=== PATIENT | male | born 1995 ===

== ENCOUNTER 2017-10-08 06:03 | Emergency (ER) | payer MEDICAID, OTHER ==
[2017-10-08 06:15] VITALS: BP 149/96; PULSE 118; RESP 18; TEMP 98.6; O2SAT 99
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
== END 2017-10-08 06:43 | disposition home or self-care (01) ==
LOC: ED 06:03
DX: S00.531A Contusion of lip, initial encounter (principal); Y08.89XA Assault by other specified means, initial encounter; Y92.9 Unspecified place or not applicable

== ENCOUNTER 2018-04-08 12:39 | Inpatient (IN) | payer MEDICAID, OTHER ==
--- NOTE | 2018-04-08 13:12 | ED PDOC ---
Arrival/HPI - General Time Seen by Provider: 04/08/18 12:46 Historian: Patient - History of Present Illness Narrative History of Present Illness (Text): 04/08/18 13:10 23yo morbidly obese male with no pmhx who present with complaint chest pain/SOB whenever he belch. States it started 4days ago. Report episode of nonbloody/ billious vomiting 3 and 4days ago. States he vomited 2hours after eating 4days ago and the second time it was related to any PO intake. Also reprot mild episastric discomfort. Reports polyuria/dipsia that has become worse. Admits to chills and feeling "hot" the last few days. Denies diaphoresis, LE edema, calf pain, ripping/tearing back pain, any other complaint. Past Medical History - Provider Review Nursing Documentation Reviewed: Yes - Infectious Disease Hx of Infectious Diseases: None - Psychiatric Hx Substance Use: No - Anesthesia Hx Anesthesia: No Family/Social History - Physician Review Nursing Documentation Reviewed: Yes Family/Social History: Unknown Family HX Smoking Status: Never Smoked Hx Alcohol Use: No Hx Substance Use: No Allergies/Home Meds Allergies/Adverse Reactions: Allergies No Known Allergies Allergy (Verified 04/08/18 16:15) Home Medications: Home Meds Medication Instructions Recorded Confirmed No Known Home Med 10/08/17 04/08/18 Review of Systems - Physician Review All systems were reviewed & negative as marked: Yes - Review of Systems Constitutional: Normal Eyes: Normal ENT: Normal Respiratory: SOB Cardiovascular: Chest Pain Gastrointestinal: Abdominal Pain, Nausea, Vomiting. absent: Constipation, Diarrhea, Hematochezia, Hematemesis Genitourinary Male: Normal Musculoskeletal: Normal Skin: Normal Neurological: Normal Endocrine: Polyuria, Polydipsia Hemo/Lymphatic: Normal Psychiatric: Normal Physical Exam Vital Signs Reviewed: Yes Vital Signs Temp Pulse Pulse Resp BP Pulse Ox 04/08/18 18:48 98.9 F 100 H 18 132/69 100 04/08/18 16:00 100 H 18 128/70 100 04/08/18 14:39 104 H 20 143/83 100 04/08/18 12:39 98.1 F 116 H 120 H 20 138/101 H 100 Temperature: Afebrile Blood Pressure: Hypertensive Pulse: Tachycardic Respiratory Rate: Normal Appearance: Positive for: Well-Appearing, Non-Toxic, Comfortable, Other ( morbidly obese) Pain Distress: None Mental Status: Positive for: Alert and Oriented X 3 - Systems Exam Head: Present: Atraumatic, Normocephalic Pupils: Present: PERRL Extroacular Muscles: Present: EOMI Conjunctiva: Present: Normal Mouth: Present: Moist Mucous Membranes Neck: Present: Normal Range of Motion Respiratory/Chest: Present: Clear to Auscultation, Good Air Exchange. No: Respiratory Distress, Accessory Muscle Use, Wheezes, Decreased Breath Sounds, Rales, Retracting, Rhonchi Cardiovascular: Present: Regular Rate and Rhythm, Normal S1, S2. No: Murmurs Abdomen: No: Tenderness, Distention, Peritoneal Signs Back: Present: Normal Inspection Upper Extremity: Present: Normal Inspection. No: Cyanosis, Edema Lower Extremity: Present: Normal Inspection. No: Edema Neurological: Present: GCS=15, CN II-XII Intact, Speech Normal Skin: Present: Warm, Dry, Normal Color. No: Rashes Psychiatric: Present: Alert, Oriented x 3, Normal Insight, Normal Concentration Medical Decision Making ED Course and Treatment: 04/08/18 16:47 23yo morbidly obese male in ED for chest and SOB x 3days. Labs ordered EKG Cardiac enzyme cardiac monitoring UA EKG Sinus tachy @ 119bpm CXR NAD 04/08/18 18:28 Lab was reviewed and BS of 302 was noted with AG of 27 and bicarb of 7. PT is is DKA. 1L NS ordered 5unit of regular insulin bolus ordered pt will need insulin drip and admission to ICU for new onset DM with DKA Case was DW Dr. Abdalla and he accepted pt for admission Dr. Abdalla DC with Dr. Carlton, the fibrous plasterer who saw pt by the bedside and accepted pt to ICU Result and plan was DW the pt and he agreed. - Critical Care Critical Care Minutes: 30 minutes - Lab Interpretations Lab Results: 04/08/18 13:35 04/08/18 13:35 Lab Results 04/08/18 15:15: Urine Osmolality 851, Ur Random Sodium 22, Ur Random Potassium 37.5 04/08/18 15:15: Urine Color Yellow, Urine Appearance Clear, Urine pH 6.0, Ur Specific [place] >= 1.030, Urine Protein 100 H, Urine Glucose (UA) >=1000, Urine Ketones >=80, Urine Blood Small H, Urine Nitrate Negative, Urine Bilirubin Negative, Urine Urobilinogen 0.2, Ur Leukocyte Esterase Negative, Urine RBC 1 - 3, Urine WBC 0 - 2, Ur Epithelial Cells 0 - 2, Urine Bacteria Small, Hyaline Casts 0 - 2 04/08/18 15:15: pCO2 13 L*, pO2 140.0 H, HCO3 5.2 L*, ABG pH 7.21 L, ABG Total CO2 5.6 L, ABG O2 Saturation 100.3 H, ABG Base Excess -20.0 L, ABG Potassium 2.7 L, Glucose 266 H, Lactate 1.2, FiO2 21.0, Sodium 135.0, Chloride 109.0 H, Arterial Blood Potassium 2.7 L 04/08/18 15:15: Urine Opiates Screen Negative, Urine Methadone Screen Negative, Ur Barbiturates Screen Negative, Ur Phencyclidine Scrn Negative, Ur Amphetamines Screen Negative, U Benzodiazepines Scrn Negative, U Oth Cocaine Metabols Negative, U Cannabinoids Screen Negative 04/08/18 14:52: POC Glucose (mg/dL) 251 H 04/08/18 13:35: PT 11.3, INR 0.99, APTT 30.6, D-Dimer, Quantitative < 200 04/08/18 13:35: Sodium 137, Potassium 3.7, Chloride 107, Carbon Dioxide 7 L, Anion Gap 27 H, BUN 6 L, Creatinine 0.7 L, Est GFR ( Amer) > 60, Est GFR (Non-Af Amer) > 60, Random Glucose 302 H*, Calcium 9.6, Magnesium 2.0, Total Bilirubin 1.1, AST 78 H, ALT 141 H, Alkaline Phosphatase 206 H, Lactate Dehydrogenase 524, Total Creatine Kinase 95, Troponin I < 0.01, Total Protein 8.0, Albumin 4.4, Globulin 3.6, Albumin/Globulin Ratio 1.2, Lipase 247 04/08/18 13:35: WBC 9.4, RBC 6.39 H, Hgb 17.5, Hct 48.6, MCV 76.1 L, MCH 27.4, MCHC 36.0, RDW 15.1 H, Plt Count 153, Gran % 67.8, Lymph % (Auto) 21.4 L, Wake % (Auto) 10.2 H, Eos % (Auto) 0.3 L, Baso % (Auto) 0.3, Gran # 6.34, Lymph # ( Auto) 2.0, Wake # (Auto) 1.0 H, Eos # (Auto) 0.0, Baso # (Auto) 0.03 - RAD Interpretation Radiology Orders: 04/08/18 12:55 CHEST PORTABLE [RAD] Stat 04/08/18 16:21 ABD & PELVIS W/O PO OR IV CONT [CT] Stat - Medication Orders Current Medication Orders: Dextrose (Dextrose 50% Inj) 0 ml IV STAT PRN; Protocol PRN Reason: Hypoglycemia Protocol Dextrose (Dextrose 5% In Water 1000 Ml) 1,000 mls @ 0 mls/hr IV .Q0M PRN; Protocol; Per Protocol PRN Reason: Hypoglycemia Protocol Potassium Chloride 40 meq/ (Dextrose/Sodium Chloride) 1,020 mls @ 200 mls/hr IV .Q5H6M LEONARDO Insulin Human Regular 100 (units/ Sodium Chloride) 100 mls @ 6 mls/hr IV .[id number] PRN; Protocol; 6 UNITS/HR PRN Reason: TITRATE PER MD ORDER Pantoprazole Sodium (Protonix Ec Tab) 40 mg PO 0600 LEONARDO Discontinued Medications Famotidine (Pepcid) 20 mg IVP STAT STA Stop: 04/08/18 12:56 Last Admin: 04/08/18 13:46 Dose: 20 mg IVP Administration Document 04/08/18 13:46 [facility] (Rec: 04/08/18 13:46 [facility] [id number]) Charges for Administration # of IVP Administrations 1 Sodium Chloride (Sodium Chloride 0.9%) 1,000 mls @ 999 mls/hr IV .Q1H1M STA Stop: 04/08/18 15:30 Last Admin: 04/08/18 14:45 Dose: 999 mls/hr eMAR Start Stop Document 04/08/18 14:45 [facility] (Rec: 04/08/18 14:46 [facility] [id number]) Intravenous Solution Start Date 04/08/18 Start Time 14:45 End Date 04/08/18 End time 15:45 Total Infusion Time 60 Sodium Chloride (Sodium Chloride 0.9%) 1,000 mls @ 999 mls/hr IV .Q1H1M STA Stop: 04/08/18 16:46 Last Admin: 04/08/18 15:58 Dose: 999 mls/hr eMAR Start Stop Document 04/08/18 15:58 [facility] (Rec: 04/08/18 15:58 [facility] [id number]) Intravenous Solution Start Date 04/08/18 Start Time 15:58 End Date 04/08/18 End time 16:58 Total Infusion Time 60 Lactated Ringer's (Lactated Ringer's) 1,000 mls @ 999 mls/hr IV .Q1H1M LEONARDO Stop: 04/08/18 17:30 Last Admin: 04/08/18 17:51 Dose: 999 mls/hr eMAR Start Stop Document 04/08/18 17:51 [facility] (Rec: 04/08/18 17:52 [facility] [id number]) Intravenous Solution Start Date 04/08/18 Start Time 17:52 End Date 04/08/18 End time 18:52 Total Infusion Time 60 Potassium Chloride 40 meq/ (Dextrose/Sodium Chloride) 1,020 mls @ 150 mls/hr IV .Q6H48M [facility] Last Admin: 04/08/18 17:52 Dose: 150 mls/hr eMAR Start Stop Document 04/08/18 17:52 [facility] (Rec: 04/08/18 17:52 [facility] [id number]) Intravenous Solution Start Date 04/08/18 Start Time 17:52 Insulin Human Regular 100 (units/ Sodium Chloride) 100 mls @ 13 mls/hr IV .Q7H42M PRN; Protocol; 13 UNITS/HR PRN Reason: TITRATE PER MD ORDER Last Admin: 04/08/18 18:18 Dose: 6 units/hr, 6 mls/hr eMAR Start Stop Document 04/08/18 18:18 [facility] (Rec: 04/08/18 18:19 [facility] [id number]) Intravenous Solution Start Date 04/08/18 Start Time 18:18 MAR Blood Glucose Document 04/08/18 18:18 [facility] (Rec: 04/08/18 18:19 [facility] [id number]) Blood Glucose Finger Stick Blood Glucose (70-120) 165 Titration Intervention Document 04/08/18 18:18 [facility] (Rec: 04/08/18 18:19 [facility] [id number]) Titration Intake Waste Amount 0 Container Volume 100 Titration Dosing Titration Dose 6 IV Rate 6 Intake/Decrease Started Insulin Human Regular 100 (units/ Sodium Chloride) 100 mls @ 2 mls/hr IV .Q24H PRN; Protocol; 2 UNITS/HR PRN Reason: TITRATE PER MD ORDER Insulin Human Regular (Humulin R) 5 units IVP ONCE STA Stop: 04/08/18 14:32 Last Admin: 04/08/18 14:47 Dose: 5 u MAR Blood Glucose Document 04/08/18 14:47 [facility] (Rec: 04/08/18 14:53 [facility] [id number]) Blood Glucose Finger Stick Blood Glucose (70-120) 251 IVP Administration Document 04/08/18 14:47 [facility] (Rec: 04/08/18 14:53 [facility] [id number]) Charges for Administration # of IVP Administrations 1 Potassium Chloride (Klor-Con 10) 40 meq PO STAT STA Stop: 04/08/18 17:00 Last Admin: 04/08/18 17:52 Dose: 40 meq Disposition/Present on Arrival - Present on Arrival Any Indicators Present on Arrival: No History of DVT/PE: No History of Uncontrolled Diabetes: No Urinary Catheter: No History Surgical Site Infection Following: None - Disposition Have Diagnosis and Disposition been Completed?: Yes Diagnosis: Diabetes mellitus, new onset, DKA (diabetic ketoacidoses) Disposition: HOSPITALIZED Disposition Time: 17:00 Patient Plan: Admission Patient Problems: Current Active Problems Problem Status Onset DKA (diabetic ketoacidoses) Acute Diabetes mellitus, new onset Acute Condition: FAIR
--- NOTE | 2018-04-08 13:25 | RAD ---
Date of service: 04/08/2018 HISTORY: chest pain COMPARISON: No prior. FINDINGS: LUNGS: No active pulmonary disease. PLEURA: No significant pleural effusion identified, no pneumothorax apparent. CARDIOVASCULAR: Normal. OSSEOUS STRUCTURES: No significant abnormalities. VISUALIZED UPPER ABDOMEN: Normal. OTHER FINDINGS: None. IMPRESSION: No active disease.
[2018-04-08 14:03] LABS: BASO # 0.03 K/mm3 (0.0-2.0); BASO % 0.3 % (0.0-3.0); EOS % 0.3 % (1.5-5.0); GRAN # 6.34 (1.4-6.5); GRAN % 67.8 % (50.0-68.0); HEMOGLOBIN 17.5 g/dL (14.0-18.0); LYMPH % 21.4 % (22.0-35.0); MEAN CELL VOLUME 76.1 fl (80.0-105.0); MEAN CORPUSCULAR HEMOGLOBIN 27.4 pg (25.0-35.0); MONO % 10.2 % (1.0-6.0); PLATELET COUNT 153 10^3/uL (120.0-450.0); RBC 6.39 10^6/uL (3.5-6.1); RED CELL DISTRIBUTION WIDTH 15.1 % (11.5-14.5); WHITE BLOOD COUNT 9.4 10^3/ul (4.5-11.0)
[2018-04-08 14:24] LABS: ALB/GLOB RATIO 1.2 (1.1-1.8); ALBUMIN 4.4 g/dL (3.0-4.8); ALT/SGPT 141 U/L (7-56); AST/SGOT 78 U/L (17-59); BLOOD UREA NITROGEN 6 mg/dL (7-21); CALCIUM 9.6 mg/dL (8.4-10.5); GFR NON-AFRICAN AMERICAN > 60; LIPASE 247 U/L (23-300)
[2018-04-08 14:26] LABS: TROPONIN I < 0.01 ng/mL
[2018-04-08 14:30] LABS: D DIMER < 200 ng/mlDDU (0-243); INR 0.99; PARTIAL THROMBOPLASTIN TIME 30.6 Seconds (25.1-36.5); PROTHROMBIN TIME 11.3 SECONDS (9.4-12.5)
[2018-04-08] MEDS ORDERED: Sodium Chloride 0.9% 1,000 ML IV STA ×2 (14:30→15:46)
[2018-04-08] MEDS ORDERED: Insulin Regular 1 UNITS/0.01 ML ML IVP STA (14:31)
[2018-04-08 15:24] LABS: ARTERIAL BLOOD GAS HCO3 5.2 mmol/L (21-28); ARTERIAL BLOOD GAS O2 SAT 100.3 % (95-98); ARTERIAL BLOOD GAS PCO2 13 mm/Hg (35-45); ARTERIAL BLOOD GAS PH 7.21 (7.35-7.45); ARTERIAL BLOOD GAS TCO2 5.6 mmol.L (22-28)
--- NOTE | 2018-04-08 16:26 | CP.PCM.HP ---
<Thom Gonzalez - Last Filed: 04/08/18 16:26> History of Present Illness - History of Present Illness History of Present Illness: Hospitalist Service H&P Thom Gonzalez, PGY-3 IM CC: Nausea/emesis, chest pain/short of breath with abd pain HPI: This is a 23 yo M with no PMH who presents with complaint of nausea, emesis x2, and chest pain/shortness of breath 2/2 abdominal pain. Presented due to persistence of symptoms up through today. He reports 1 episode of non- bloody/non-bilious (NBNB) emesis after eating fast-food on 5 nights ago, approximately 2 hours after intake, another episodes of NBNB emesis 3 days prior (not related to PO intake). Denies constipation or diarrhea during this period, no fevers/chills, no PO intolerance, no dysphagia, no syncope/near syncope, no room spinning. Reports minimal PO intake yesterday evening, but reports consistent PO intake of water and vignesh-bg since start of episode 5 days prior. Admits to frequent thirst and urination, but this is not a new phenomenon. Also reports feeling of being chronically cold for last 5 days, and intolerant to heat, which is new for him. Last EtOH use was 4 days prior, didn't have any effect on symptoms. [place] better after both episodes of emesis and after belching (reports increased belching the last 2 days). Reports using TUMS twice in last 2 days for symptom management with some relief. Chest pain and shortness of breath are only related to abdominal pain, which he describes as substernal discomfort associated with his abdominal pain (not currently present, in epigastric region when present), and well as mild shortness of breath with the abdominal pain (but denies ever gasping for air). All other ROS in 12-system review negative. PMH: denies PSH: denies Fam Hx: DM (Father, paternal grandparents, mother recently diagnosed) Soc Hx: Intermittent vaping (last 1 week ago), intermittent marijuana use (last used ~5 months ago) PMD: Doesn't have one Present on Admission - Present on Admission Any Indicators Present on Admission: No History of DVT/PE: No History of Uncontrolled Diabetes: Yes Urinary Catheter: No Review of Systems - Review of Systems All systems: reviewed and no additional remarkable complaints except (as per HPI ) Past Patient History - Infectious Disease Hx of Infectious Diseases: None - Past Social History Smoking Status: Never Smoked - CARDIAC Hx Cardiac Disorders: No - PULMONARY Hx Respiratory Disorders: No - NEUROLOGICAL Hx Neurological Disorder: No - HEENT Hx HEENT Problems: No - RENAL Hx Chronic Kidney Disease: No - ENDOCRINE/METABOLIC Hx Endocrine Disorders: No - HEMATOLOGICAL/ONCOLOGICAL Hx Blood Disorders: No - INTEGUMENTARY Hx Dermatological Problems: No - MUSCULOSKELETAL/RHEUMATOLOGICAL Hx Musculoskeletal Disorders: Yes Hx Arthritis: No Hx Fractures: Yes (left wrist) - GASTROINTESTINAL Hx Gastrointestinal Disorders: No - PSYCHIATRIC Hx Substance Use: No - SURGICAL HISTORY Hx Musculoskeletal Surgery: Yes (left wrist) - ANESTHESIA Hx Anesthesia: No Meds Allergies/Adverse Reactions: Allergies Allergy/AdvReac Type Severity Reaction Status Date / Time No Known Allergies Allergy Verified 04/08/18 16:15 Physical Exam - Constitutional Appears: Non-toxic, No Acute Distress Additional comments: resting comfortably in bed - Head Exam Head Exam: ATRAUMATIC, NORMAL INSPECTION, NORMOCEPHALIC - Eye Exam Eye Exam: EOMI, Normal appearance. absent: Conjunctival injection, Scleral icterus Pupil Exam: absent: Fixed, Irregular - ENT Exam ENT Exam: Mucous Membranes Moist (but reports recently drinking water) - Neck Exam Neck exam: Positive for: Full Rom, Normal Inspection. Negative for: Lymphadenopathy, Tenderness, Thyromegaly - Respiratory Exam Respiratory Exam: Decreased Breath Sounds (mildly decreased breath sounds diffusely, likely 2/2 body habitus), Clear to Auscultation Bilateral, NORMAL BREATHING PATTERN. absent: Accessory Muscle Use, Chest Wall Tenderness, Rales, Rhonchi, Wheezes, Respiratory Distress - Cardiovascular Exam Cardiovascular Exam: Tachycardia, REGULAR RHYTHM, +S1, +S2. absent: Bradycardia , Diastolic murmur, Irregular Rhythm, JVD, RRR, +S4, Systolic Murmur - GI/Abdominal Exam GI & Abdominal Exam: Normal Bowel Sounds, Soft, Tenderness (no tenderness to palpation, but increased "discomfort" with palpation superior to epigastric region). absent: Diminished Bowel Sounds, Distended (obese but not distended), Firm, Guarding, Hyperactive Bowel Sounds, Hypoactive Bowel Sounds, Rigid - Extremities Exam Extremities exam: Positive for: normal capillary refill, normal inspection, pedal pulses present. Negative for: calf tenderness, joint swelling, pedal edema, tenderness - Back Exam Back exam: absent: CVA tenderness (L), CVA tenderness (R) - Neurological Exam Additional comments: awake and alert, following all commands appropriately, moving all extremities spontaneously, motor grossly intact and equal bilaterally, sensory grossly intact and equal (no appreciate LE paresthesias on exam) - Psychiatric Exam Psychiatric exam: Normal Affect, Normal Mood - Skin Skin Exam: Dry, Intact, Normal Color, Warm Results - Vital Signs Recent Vital Signs: Last Vital Signs Temp 98.1 F 04/08/18 12:39 Pulse 104 H 04/08/18 14:39 Resp 20 04/08/18 14:39 BP 143/83 04/08/18 14:39 Pulse Ox 100 04/08/18 14:39 - Labs Result Diagrams: 04/08/18 13:35 04/08/18 13:35 Labs: Laboratory Results - last 24 hr 04/08/18 04/08/18 04/08/18 13:35 13:35 13:35 WBC 9.4 RBC 6.39 H Hgb 17.5 Hct 48.6 MCV 76.1 L MCH 27.4 MCHC 36.0 RDW 15.1 H Plt Count 153 Gran % 67.8 Lymph % (Auto) 21.4 L [place] % (Auto) 10.2 H Eos % (Auto) 0.3 L Baso % (Auto) 0.3 Gran # 6.34 Lymph # (Auto) 2.0 [place] # (Auto) 1.0 H Eos # (Auto) 0.0 Baso # (Auto) 0.03 PT 11.3 INR 0.99 APTT 30.6 D-Dimer, Quantitative < 200 pCO2 pO2 HCO3 ABG pH ABG Total CO2 ABG O2 Saturation ABG Base Excess ABG Potassium Glucose Lactate FiO2 Sodium 137 Potassium 3.7 Chloride 107 Carbon Dioxide 7 L Anion Gap 27 H BUN 6 L Creatinine 0.7 L Est GFR ( Amer) > 60 Est GFR (Non-Af Amer) > 60 POC Glucose (mg/dL) Random Glucose 302 H* Calcium 9.6 Magnesium 2.0 Total Bilirubin 1.1 AST 78 H ALT 141 H Alkaline Phosphatase 206 H Lactate Dehydrogenase 524 Total Creatine Kinase 95 Troponin I < 0.01 Total Protein 8.0 Albumin 4.4 Globulin 3.6 Albumin/Globulin Ratio 1.2 Lipase 247 Arterial Blood Potassium 04/08/18 04/08/18 14:52 15:15 WBC RBC Hgb Hct MCV MCH MCHC RDW Plt Count Gran % Lymph % (Auto) [place] % (Auto) Eos % (Auto) Baso % (Auto) Gran # Lymph # (Auto) [place] # (Auto) Eos # (Auto) Baso # (Auto) PT INR APTT D-Dimer, Quantitative pCO2 13 L* pO2 140.0 H HCO3 5.2 L* ABG pH 7.21 L ABG Total CO2 5.6 L ABG O2 Saturation 100.3 H ABG Base Excess -20.0 L ABG Potassium 2.7 L Glucose 266 H Lactate 1.2 FiO2 21.0 Sodium 135.0 Potassium Chloride 109.0 H Carbon Dioxide Anion Gap BUN Creatinine Est GFR ( Amer) Est GFR (Non-Af Amer) POC Glucose (mg/dL) 251 H Random Glucose Calcium Magnesium Total Bilirubin AST ALT Alkaline Phosphatase Lactate Dehydrogenase Total Creatine Kinase Troponin I Total Protein Albumin Globulin Albumin/Globulin Ratio Lipase Arterial Blood Potassium 2.7 L Assessment & Plan - Assessment and Plan (Free Text) Assessment: This is a 23 yo M with no PMH who presents with complaint of nausea, emesis x2, and chest pain/shortness of breath 2/2 abdominal pain. Presented due to persistence of symptoms up through today. He is being admitted for possible DKA vs metabolic acidosis of unclear etiology, in addition to possible enteritis vs collitis. Plan: 1) Metabolic acidosis -ddx: DKA vs 2/2 infection vs failure of renal bicarb retention; decreased PO intake yesterday evening into today, so starvation ketosis may also be present -strongly suspect that this patient is diabetic, but unclear if DKA -Glucose 302, gap 27; fingerstick glucose while examining patient was 252 -ABG concerning for pCO2 12, pH 7.27, calculated bicarb 5.2 (serum bicarb 7); non-compensated metabolic acidosis, but looks like attempting respiratory compensation -pending CT abd/pelvis to rule out enteritis/collitis/abscess -s/p 1L NS in ED, another ordered, will add 1L LR, recheck CMP after -UA pending, assess for urine Ketones to determine if DKA vs HHS -Nephro consulted for metabolic acidosis, appreciate all recs -At this point, patient may not require Insulin drip, given low sugars and unclear etiology of metabolic acidosis, but will consult Pin Inserter Regulator for possible ICU placement -UDS ordered -given possibility of DKA, will keep NPO for now until determination made 2) Chest pain/SOB -shortness of breath may be respiratory compensation, non-smoker but does occasionally vape -Trop x1 negative and EKG notable for sinus tachy with QTc 500; low suspicion for cardiac chest pain, but will trend trops q8 x2 and repeat EKG in AM to r/o 3) Elevated LFTs -mildly elevated AST/ALT, elevated alk phos; normal TBili -pending repeat CMP for metabolic acidosis, will also follow up repeat LFTs -possibly 2/2 metabolic acidosis vs 2/2 GI infection -pending CT abd/pelvis, hepatitis panel ordered, UDS ordered 4) Nausea/Emesis -not currently vomiting, some intermittent nausea -given QTc of 500 in setting of sinus tachycardia (so real QT likely more prolonged), would avoid Zofran and other anti-emetics, as can further QT prolong 5) Cold intolerance in setting of possible diabetes -r/o hypothyroidism; TSH ordered Dispo: Pending reassessment of CMP after receiving additional fluid resuscitation in ED, pending ICU eval FEN: NPO for now, S/p 1L NS bolus, pending another NS liter and 1L LR boluses Access: Peripheral IVs Consults: Nephro, ICU Ppx: Protonix for GI, Heparin SC for DVT ppx Seen, reviewed, and discussed with attending, Dr. Abdalla <Erika Abdalla - Last Filed: 04/09/18 08:44> Results - Vital Signs Recent Vital Signs: Last Vital Signs Temp 98.9 F 04/08/18 18:48 Pulse 71 04/09/18 06:30 Resp 19 04/09/18 06:30 BP 135/76 04/09/18 04:00 Pulse Ox 99 04/09/18 06:30 - Labs Result Diagrams: 04/09/18 04:12 04/09/18 08:00 Labs: Laboratory Results - last 24 hr 04/08/18 04/08/18 04/08/18 16:50 16:50 16:50 WBC RBC Hgb Hct MCV MCH MCHC RDW Plt Count Gran % Lymph % (Auto) [place] % (Auto) Eos % (Auto) Baso % (Auto) Gran # Lymph # (Auto) [place] # (Auto) Eos # (Auto) Baso # (Auto) pCO2 pO2 HCO3 ABG pH ABG Total CO2 ABG O2 Saturation ABG O2 Content ABG Base Excess ABG Hemoglobin ABG Carboxyhemoglobin POC ABG HHb (Measured) ABG Methemoglobin ABG O2 Capacity VBG pH VBG pCO2 VBG HCO3 VBG O2 Sat (Calc) VBG Base Excess Hgb O2 Saturation FiO2 Sodium Potassium Chloride Carbon Dioxide Anion Gap BUN Creatinine Est GFR ( Amer) Est GFR (Non-Af Amer) POC Glucose (mg/dL) Random Glucose Hemoglobin A1c 13.9 H Serum Osmolality 299 Calcium Phosphorus Magnesium Total Bilirubin AST ALT Alkaline Phosphatase Troponin I Total Protein Albumin Globulin Albumin/Globulin Ratio TSH 3rd Generation 1.90 Salicylates < 1 L Acetaminophen < 10.0 L Alcohol, Quantitative < 10 B-Hydroxybutyrate 04/08/18 04/08/18 04/08/18 16:50 17:47 19:11 WBC RBC Hgb Hct MCV MCH MCHC RDW Plt Count Gran % Lymph % (Auto) [place] % (Auto) Eos % (Auto) Baso % (Auto) Gran # Lymph # (Auto) [place] # (Auto) Eos # (Auto) Baso # (Auto) pCO2 pO2 HCO3 ABG pH ABG Total CO2 ABG O2 Saturation ABG O2 Content ABG Base Excess ABG Hemoglobin ABG Carboxyhemoglobin POC ABG HHb (Measured) ABG Methemoglobin ABG O2 Capacity VBG pH VBG pCO2 VBG HCO3 VBG O2 Sat (Calc) VBG Base Excess Hgb O2 Saturation FiO2 Sodium 138 Potassium 4.0 Chloride 112 H Carbon Dioxide 7 L Anion Gap 24 H BUN 5 L Creatinine 0.5 L Est GFR ( Amer) > 60 Est GFR (Non-Af Amer) > 60 POC Glucose (mg/dL) 165 H 220 H Random Glucose 232 H Hemoglobin A1c Serum Osmolality Calcium 8.2 L Phosphorus Magnesium Total Bilirubin 0.9 AST 88 H ALT 134 H Alkaline Phosphatase 167 H Troponin I Total Protein 7.0 Albumin 3.7 Globulin 3.3 Albumin/Globulin Ratio 1.1 TSH 3rd Generation Salicylates Acetaminophen Alcohol, Quantitative B-Hydroxybutyrate 7.02 H 04/08/18 04/08/18 04/08/18 20:15 20:30 20:40 WBC RBC Hgb Hct MCV MCH MCHC RDW Plt Count Gran % Lymph % (Auto) [place] % (Auto) Eos % (Auto) Baso % (Auto) Gran # Lymph # (Auto) [place] # (Auto) Eos # (Auto) Baso # (Auto) pCO2 pO2 24 L HCO3 ABG pH ABG Total CO2 ABG O2 Saturation ABG O2 Content ABG Base Excess ABG Hemoglobin ABG Carboxyhemoglobin POC ABG HHb (Measured) ABG Methemoglobin ABG O2 Capacity VBG pH 7.14 L* VBG pCO2 31.0 L VBG HCO3 10.6 L VBG O2 Sat (Calc) 55.3 VBG Base Excess -17.2 L Hgb O2 Saturation FiO2 Sodium 140 Potassium 4.1 Chloride 112 H Carbon Dioxide 10 L D Anion Gap 22 H BUN 4 L Creatinine 0.6 L Est GFR ( Amer) > 60 Est GFR (Non-Af Amer) > 60 POC Glucose (mg/dL) 207 H Random Glucose 231 H Hemoglobin A1c Serum Osmolality Calcium 8.4 Phosphorus 0.8 L* Magnesium 1.9 Total Bilirubin AST ALT Alkaline Phosphatase Troponin I < 0.01 Total Protein Albumin Globulin Albumin/Globulin Ratio TSH 3rd Generation Salicylates Acetaminophen Alcohol, Quantitative B-Hydroxybutyrate 04/08/18 04/09/18 04/09/18 21:34 00:28 01:36 WBC RBC Hgb Hct MCV MCH MCHC RDW Plt Count Gran % Lymph % (Auto) [place] % (Auto) Eos % (Auto) Baso % (Auto) Gran # Lymph # (Auto) [place] # (Auto) Eos # (Auto) Baso # (Auto) pCO2 pO2 HCO3 ABG pH ABG Total CO2 ABG O2 Saturation ABG O2 Content ABG Base Excess ABG Hemoglobin ABG Carboxyhemoglobin POC ABG HHb (Measured) ABG Methemoglobin ABG O2 Capacity VBG pH VBG pCO2 VBG HCO3 VBG O2 Sat (Calc) VBG Base Excess Hgb O2 Saturation FiO2 Sodium 139 Potassium 3.6 Chloride 112 H Carbon Dioxide 11 L Anion Gap 19 BUN 4 L Creatinine 0.6 L Est GFR ( Amer) > 60 Est GFR (Non-Af Amer) > 60 POC Glucose (mg/dL) 243 H 205 H Random Glucose 205 H Hemoglobin A1c Serum Osmolality Calcium 8.3 L Phosphorus 0.8 L* Magnesium 2.0 Total Bilirubin AST ALT Alkaline Phosphatase Troponin I Total Protein Albumin Globulin Albumin/Globulin Ratio TSH 3rd Generation Salicylates Acetaminophen Alcohol, Quantitative B-Hydroxybutyrate 04/09/18 04/09/18 04/09/18 02:25 03:31 04:12 WBC RBC Hgb Hct MCV MCH MCHC RDW Plt Count Gran % Lymph % (Auto) [place] % (Auto) Eos % (Auto) Baso % (Auto) Gran # Lymph # (Auto) [place] # (Auto) Eos # (Auto) Baso # (Auto) pCO2 pO2 HCO3 ABG pH ABG Total CO2 ABG O2 Saturation ABG O2 Content ABG Base Excess ABG Hemoglobin ABG Carboxyhemoglobin POC ABG HHb (Measured) ABG Methemoglobin ABG O2 Capacity VBG pH VBG pCO2 VBG HCO3 VBG O2 Sat (Calc) VBG Base Excess Hgb O2 Saturation FiO2 Sodium 138 Potassium 3.3 L Chloride 113 H Carbon Dioxide 10 L Anion Gap 18 BUN 3 L Creatinine 0.5 L Est GFR ( Amer) > 60 Est GFR (Non-Af Amer) > 60 POC Glucose (mg/dL) 217 H 226 H Random Glucose 246 H Hemoglobin A1c Serum Osmolality Calcium 8.3 L Phosphorus 1.5 L Magnesium 1.9 Total Bilirubin AST ALT Alkaline Phosphatase Troponin I < 0.01 Total Protein Albumin Globulin Albumin/Globulin Ratio TSH 3rd Generation Salicylates Acetaminophen Alcohol, Quantitative B-Hydroxybutyrate 04/09/18 04/09/18 04/09/18 04:12 04:28 05:52 WBC 6.8 D RBC 5.55 Hgb 14.8 D Hct 42.0 MCV 75.7 L MCH 26.7 MCHC 35.2 RDW 15.2 H Plt Count 120 Gran % 57.0 Lymph % (Auto) 27.7 [place] % (Auto) 14.1 H Eos % (Auto) 0.9 L Baso % (Auto) 0.3 Gran # 3.90 Lymph # (Auto) 1.9 [place] # (Auto) 1.0 H Eos # (Auto) 0.1 Baso # (Auto) 0.02 pCO2 pO2 HCO3 ABG pH ABG Total CO2 ABG O2 Saturation ABG O2 Content ABG Base Excess ABG Hemoglobin ABG Carboxyhemoglobin POC ABG HHb (Measured) ABG Methemoglobin ABG O2 Capacity VBG pH VBG pCO2 VBG HCO3 VBG O2 Sat (Calc) VBG Base Excess Hgb O2 Saturation FiO2 Sodium Potassium Chloride Carbon Dioxide Anion Gap BUN Creatinine Est GFR ( Amer) Est GFR (Non-Af Amer) POC Glucose (mg/dL) 236 H 256 H Random Glucose Hemoglobin A1c Serum Osmolality Calcium Phosphorus Magnesium Total Bilirubin AST ALT Alkaline Phosphatase Troponin I Total Protein Albumin Globulin Albumin/Globulin Ratio TSH 3rd Generation Salicylates Acetaminophen Alcohol, Quantitative B-Hydroxybutyrate 04/09/18 04/09/18 04/09/18 06:41 07:31 08:00 WBC RBC Hgb Hct MCV MCH MCHC RDW Plt Count Gran % Lymph % (Auto) [place] % (Auto) Eos % (Auto) Baso % (Auto) Gran # Lymph # (Auto) [place] # (Auto) Eos # (Auto) Baso # (Auto) pCO2 pO2 HCO3 ABG pH ABG Total CO2 ABG O2 Saturation ABG O2 Content ABG Base Excess ABG Hemoglobin ABG Carboxyhemoglobin POC ABG HHb (Measured) ABG Methemoglobin ABG O2 Capacity VBG pH VBG pCO2 VBG HCO3 VBG O2 Sat (Calc) VBG Base Excess Hgb O2 Saturation FiO2 Sodium 137 Potassium 3.3 L Chloride 112 H Carbon Dioxide 12 L Anion Gap 16 BUN 2 L Creatinine 0.5 L Est GFR ( Amer) > 60 Est GFR (Non-Af Amer) > 60 POC Glucose (mg/dL) 227 H 247 H Random Glucose 236 H Hemoglobin A1c Serum Osmolality Calcium 8.1 L Phosphorus 1.6 L Magnesium 1.8 Total Bilirubin AST ALT Alkaline Phosphatase Troponin I Total Protein Albumin Globulin Albumin/Globulin Ratio TSH 3rd Generation Salicylates Acetaminophen Alcohol, Quantitative B-Hydroxybutyrate 04/09/18 08:00 WBC RBC Hgb Hct MCV MCH MCHC RDW Plt Count Gran % Lymph % (Auto) [place] % (Auto) Eos % (Auto) Baso % (Auto) Gran # Lymph # (Auto) [place] # (Auto) Eos # (Auto) Baso # (Auto) pCO2 23 L pO2 118.0 H HCO3 10.6 L ABG pH 7.27 L ABG Total CO2 11.3 L ABG O2 Saturation 100.0 H ABG O2 Content 20.2 ABG Base Excess -14.2 L ABG Hemoglobin 14.7 ABG Carboxyhemoglobin 1.9 H POC ABG HHb (Measured) 0 ABG Methemoglobin 1.2 ABG O2 Capacity 20.2 VBG pH VBG pCO2 VBG HCO3 VBG O2 Sat (Calc) VBG Base Excess Hgb O2 Saturation 96.9 FiO2 21.0 Sodium Potassium Chloride Carbon Dioxide Anion Gap BUN Creatinine Est GFR ( Amer) Est GFR (Non-Af Amer) POC Glucose (mg/dL) Random Glucose Hemoglobin A1c Serum Osmolality Calcium Phosphorus Magnesium Total Bilirubin AST ALT Alkaline Phosphatase Troponin I Total Protein Albumin Globulin Albumin/Globulin Ratio TSH 3rd Generation Salicylates Acetaminophen Alcohol, Quantitative B-Hydroxybutyrate Attending/Attestation - Attestation I have personally seen and examined this patient.: Yes I have fully participated in the care of the patient.: Yes I have reviewed all pertinent clinical information: Yes Notes (Text): 04/08/18 23 year old male with no significant past medical history who presents with complaint of nausea, vomiting and dyspnea. He was found to have sever metabolic aniop gap acidosis with elevated blood sugars, likely DKA vs starvation ketosis. He is on started on iv fluids and insulin drip. Will obtain serial bmps overnight. A1c level is ordered. GI symptoms, probably related to gastroenteritis, have improved. CT abd/pelvis was ordered. He also has transaminitis. Will repeat in AM and check hepatitis panel. Erika Abdalla MD Hospitalist.
[2018-04-08] MEDS ORDERED: Lactated Ringer's 1,000 ML IV SCH (16:30)
[2018-04-08 16:47] LABS: URINE BILIRUBIN NEGATIVE (NEGATIVE); URINE BLOOD SMALL (NEGATIVE); URINE GLUCOSE (UA) >=1000 mg/dL (NEGATIVE); URINE LEUKOCYTE ESTERASE NEGATIVE Leu/uL (NEGATIVE); URINE PROTEIN 100 mg/dL (<30 mg/dL); URINE UROBILINOGEN 0.2 E.U./dL (<1 E.U./dL)
[2018-04-08] MEDS ORDERED: Dextrose 50% SYRINGE Inj (50 ml) IV PRN (16:49)
[2018-04-08] MEDS ORDERED: Insulin Regular 100 UNITS in Sodium Chloride 0.9% 99 ML IV PRN ×3 (16:49→18:05)
[2018-04-08 16:53] LABS: BARBITURATES, UR NEGATIVE (NEGATIVE); BENZODIAZEPINES, UR NEGATIVE (NEGATIVE); OPIATES, UR NEGATIVE (NEGATIVE); PHENCYCLIDINE, UR NEGATIVE (NEGATIVE)
[2018-04-08 16:56] LABS: URINE APPEARANCE CLEAR (CLEAR); URINE COLOR YELLOW (YELLOW)
[2018-04-08] MEDS ORDERED: Potassium Chloride 10 mEq ER Tab PO STA (16:59)
[2018-04-08] MEDS ORDERED: Potassium Chloride 40 MEQ in Dextrose 5%/0.45% NS 1,000 ML IV SCH (17:00)
[2018-04-08 17:23] LABS: ALB/GLOB RATIO 1.1 (1.1-1.8); ALBUMIN 3.7 g/dL (3.0-4.8); ALT/SGPT 134 U/L (7-56); AST/SGOT 88 U/L (17-59); BLOOD UREA NITROGEN 5 mg/dL (7-21); CALCIUM 8.2 mg/dL (8.4-10.5); GFR NON-AFRICAN AMERICAN > 60
[2018-04-08 17:24] LABS: ACETAMINOPHEN < 10.0 ug/ml (10.0-20.0); SALICYLATE < 1 mg/dL (2.0-20.0)
[2018-04-08 17:37] LABS: OSMOLALITY,SERUM 299 mosm/kg (272-300)
[2018-04-08 17:56] LABS: URINE BACTERIA SMALL (NEG); URINE EPITHELIAL CELLS 0 - 2 /hpf (0-5); URINE HYALINE CAST 0 - 2 /hpf; URINE WBC 0 - 2 /hpf (0-6)
--- NOTE | 2018-04-08 18:09 | CP.PCM.CON ---
<Jennifer Farrell - Last Filed: 04/08/18 18:23> History of Present Illness - History of Present Illness History of Present Illness: CC: abdominal pain 23 year old male with no significant PMH, presents for abdominal pain for past few days. Patient states that he went to [facility] 5 days ago, after which he "did not feel right." He reports NBNB vomiting episodes x2 since then. He then had mildly poor PO intake. Then patient started feeling increasing thirst, frequent urination. Patient states that he is not eating solid foods for past few days, but is taking in a lot of water and vignesh-bg. Patient reports mild belching, heartburn after drinking vignesh-bg. Denies sob, cp, headache, dizziness, dysuria, hematuria, leg swelling. In ED, patient's BG 302, found to have anion gap of 23, UA positive for ketones , bicarb of 7. Given 5 units regular insulin, 2-3L IVF boluses. ICU consulted for management of DKA. 12 point ROS obtained and negative, except as per HPI. PMH: denies PSH: denies Fam Hx: DM (Father, paternal grandparents, mother recently diagnosed) Soc Hx: Intermittent vaping (last 1 week ago), intermittent marijuana use (last used ~5 months ago) PMD: Denies Review of Systems - Review of Systems All systems: reviewed and no additional remarkable complaints except Review of Systems: as per HPI Past Patient History - Infectious Disease Hx of Infectious Diseases: None - Past Social History Smoking Status: Never Smoked - CARDIAC Hx Cardiac Disorders: No - PULMONARY Hx Respiratory Disorders: No - NEUROLOGICAL Hx Neurological Disorder: No - HEENT Hx HEENT Problems: No - RENAL Hx Chronic Kidney Disease: No - ENDOCRINE/METABOLIC Hx Endocrine Disorders: No - HEMATOLOGICAL/ONCOLOGICAL Hx Blood Disorders: No - INTEGUMENTARY Hx Dermatological Problems: No - MUSCULOSKELETAL/RHEUMATOLOGICAL Hx Musculoskeletal Disorders: Yes Hx Arthritis: No Hx Fractures: Yes (left wrist) - GASTROINTESTINAL Hx Gastrointestinal Disorders: No - PSYCHIATRIC Hx Substance Use: No - SURGICAL HISTORY Hx Musculoskeletal Surgery: Yes (left wrist) - ANESTHESIA Hx Anesthesia: No Meds Allergies/Adverse Reactions: Allergies Allergy/AdvReac Type Severity Reaction Status Date / Time No Known Allergies Allergy Verified 04/08/18 16:15 - Medications Medications: Current Medications Dextrose (Dextrose 50% Inj) 0 ml IV STAT PRN; Protocol PRN Reason: Hypoglycemia Protocol Dextrose (Dextrose 5% In Water 1000 Ml) 1,000 mls @ 0 mls/hr IV .Q0M PRN; Protocol; Per Protocol PRN Reason: Hypoglycemia Protocol Potassium Chloride 40 meq/ (Dextrose/Sodium Chloride) 1,020 mls @ 200 mls/hr IV .Q5H6M [facility] Insulin Human Regular 100 (units/ Sodium Chloride) 100 mls @ 6 mls/hr IV .[id number] PRN; Protocol; 6 UNITS/HR PRN Reason: TITRATE PER MD ORDER Pantoprazole Sodium (Protonix Ec Tab) 40 mg PO 0600 [facility] Physical Exam - Constitutional Appears: Non-toxic, No Acute Distress - Head Exam Head Exam: ATRAUMATIC, NORMOCEPHALIC - Eye Exam Eye Exam: EOMI, PERRL. absent: Conjunctival injection, Nystagmus, Scleral icterus Pupil Exam: NORMAL ACCOMODATION, PERRL. absent: Irregular, Miosis, Mydriatic - ENT Exam ENT Exam: Mucous Membranes Dry - Neck Exam Neck exam: Positive for: Full Rom - Respiratory Exam Respiratory Exam: Clear to Auscultation Bilateral, NORMAL BREATHING PATTERN. absent: Chest Wall Tenderness, Prolonged Expiratory Phase, Rales, Rhonchi, Wheezes, Respiratory Distress, Stridor - Cardiovascular Exam Cardiovascular Exam: Tachycardia, +S1, +S2. absent: Systolic Murmur - GI/Abdominal Exam GI & Abdominal Exam: Normal Bowel Sounds, Soft, Tenderness (mild epigastric tenderness). absent: Distended, Guarding, Rebound, Rigid Additional comments: morbidly obese male, rounded abdomen - Extremities Exam Extremities exam: Positive for: normal inspection. Negative for: calf tenderness, pedal edema - Back Exam Back exam: NORMAL INSPECTION - Neurological Exam Neurological exam: Alert, Oriented x3 - Psychiatric Exam Psychiatric exam: Normal Affect, Normal Mood - Skin Skin Exam: Dry, Normal Color, Warm Results - Vital Signs Recent Vital Signs: Last Vital Signs Temp 98.1 F 04/08/18 12:39 Pulse 100 H 04/08/18 16:00 Resp 18 04/08/18 16:00 BP 128/70 04/08/18 16:00 Pulse Ox 100 04/08/18 16:00 - Labs Result Diagrams: 04/08/18 13:35 04/08/18 16:50 Labs: Laboratory Results - last 24 hr 04/08/18 04/08/18 04/08/18 13:35 13:35 13:35 WBC 9.4 RBC 6.39 H Hgb 17.5 Hct 48.6 MCV 76.1 L MCH 27.4 MCHC 36.0 RDW 15.1 H Plt Count 153 Gran % 67.8 Lymph % (Auto) 21.4 L Aiken % (Auto) 10.2 H Eos % (Auto) 0.3 L Baso % (Auto) 0.3 Gran # 6.34 Lymph # (Auto) 2.0 Aiken # (Auto) 1.0 H Eos # (Auto) 0.0 Baso # (Auto) 0.03 PT 11.3 INR 0.99 APTT 30.6 D-Dimer, Quantitative < 200 pCO2 pO2 HCO3 ABG pH ABG Total CO2 ABG O2 Saturation ABG Base Excess ABG Potassium Glucose Lactate FiO2 Sodium 137 Potassium 3.7 Chloride 107 Carbon Dioxide 7 L Anion Gap 27 H BUN 6 L Creatinine 0.7 L Est GFR ( Amer) > 60 Est GFR (Non-Af Amer) > 60 POC Glucose (mg/dL) Random Glucose 302 H* Serum Osmolality Calcium 9.6 Magnesium 2.0 Total Bilirubin 1.1 AST 78 H ALT 141 H Alkaline Phosphatase 206 H Lactate Dehydrogenase 524 Total Creatine Kinase 95 Troponin I < 0.01 Total Protein 8.0 Albumin 4.4 Globulin 3.6 Albumin/Globulin Ratio 1.2 Lipase 247 TSH 3rd Generation Arterial Blood Potassium Urine Color Urine Appearance Urine pH Ur Specific [place] Urine Protein Urine Glucose (UA) Urine Ketones Urine Blood Urine Nitrate Urine Bilirubin Urine Urobilinogen Ur Leukocyte Esterase Urine RBC Urine WBC Ur Epithelial Cells Urine Bacteria Hyaline Casts Urine Osmolality Ur Random Sodium Ur Random Potassium Salicylates Urine Opiates Screen Urine Methadone Screen Acetaminophen Ur Barbiturates Screen Ur Phencyclidine Scrn Ur Amphetamines Screen U Benzodiazepines Scrn U Oth Cocaine Metabols U Cannabinoids Screen Alcohol, Quantitative 04/08/18 04/08/18 04/08/18 14:52 15:15 15:15 WBC RBC Hgb Hct MCV MCH MCHC RDW Plt Count Gran % Lymph % (Auto) Aiken % (Auto) Eos % (Auto) Baso % (Auto) Gran # Lymph # (Auto) Aiken # (Auto) Eos # (Auto) Baso # (Auto) PT INR APTT D-Dimer, Quantitative pCO2 13 L* pO2 140.0 H HCO3 5.2 L* ABG pH 7.21 L ABG Total CO2 5.6 L ABG O2 Saturation 100.3 H ABG Base Excess -20.0 L ABG Potassium 2.7 L Glucose 266 H Lactate 1.2 FiO2 21.0 Sodium 135.0 Potassium Chloride 109.0 H Carbon Dioxide Anion Gap BUN Creatinine Est GFR ( Amer) Est GFR (Non-Af Amer) POC Glucose (mg/dL) 251 H Random Glucose Serum Osmolality Calcium Magnesium Total Bilirubin AST ALT Alkaline Phosphatase Lactate Dehydrogenase Total Creatine Kinase Troponin I Total Protein Albumin Globulin Albumin/Globulin Ratio Lipase TSH 3rd Generation Arterial Blood Potassium 2.7 L Urine Color Urine Appearance Urine pH Ur Specific [place] Urine Protein Urine Glucose (UA) Urine Ketones Urine Blood Urine Nitrate Urine Bilirubin Urine Urobilinogen Ur Leukocyte Esterase Urine RBC Urine WBC Ur Epithelial Cells Urine Bacteria Hyaline Casts Urine Osmolality Ur Random Sodium Ur Random Potassium Salicylates Urine Opiates Screen Negative Urine Methadone Screen Negative Acetaminophen Ur Barbiturates Screen Negative Ur Phencyclidine Scrn Negative Ur Amphetamines Screen Negative U Benzodiazepines Scrn Negative U Oth Cocaine Metabols Negative U Cannabinoids Screen Negative Alcohol, Quantitative 04/08/18 04/08/18 04/08/18 15:15 15:15 16:50 WBC RBC Hgb Hct MCV MCH MCHC RDW Plt Count Gran % Lymph % (Auto) Aiken % (Auto) Eos % (Auto) Baso % (Auto) Gran # Lymph # (Auto) Aiken # (Auto) Eos # (Auto) Baso # (Auto) PT INR APTT D-Dimer, Quantitative pCO2 pO2 HCO3 ABG pH ABG Total CO2 ABG O2 Saturation ABG Base Excess ABG Potassium Glucose Lactate FiO2 Sodium Potassium Chloride Carbon Dioxide Anion Gap BUN Creatinine Est GFR ( Amer) Est GFR (Non-Af Amer) POC Glucose (mg/dL) Random Glucose Serum Osmolality 299 Calcium Magnesium Total Bilirubin AST ALT Alkaline Phosphatase Lactate Dehydrogenase Total Creatine Kinase Troponin I Total Protein Albumin Globulin Albumin/Globulin Ratio Lipase TSH 3rd Generation 1.90 Arterial Blood Potassium Urine Color Yellow Urine Appearance Clear Urine pH 6.0 Ur Specific [place] >= 1.030 Urine Protein 100 H Urine Glucose (UA) >=1000 Urine Ketones >=80 Urine Blood Small H Urine Nitrate Negative Urine Bilirubin Negative Urine Urobilinogen 0.2 Ur Leukocyte Esterase Negative Urine RBC 1 - 3 Urine WBC 0 - 2 Ur Epithelial Cells 0 - 2 Urine Bacteria Small Hyaline Casts 0 - 2 Urine Osmolality 851 Ur Random Sodium 22 Ur Random Potassium 37.5 Salicylates Urine Opiates Screen Urine Methadone Screen Acetaminophen Ur Barbiturates Screen Ur Phencyclidine Scrn Ur Amphetamines Screen U Benzodiazepines Scrn U Oth Cocaine Metabols U Cannabinoids Screen Alcohol, Quantitative < 10 04/08/18 04/08/18 04/08/18 16:50 16:50 17:47 WBC RBC Hgb Hct MCV MCH MCHC RDW Plt Count Gran % Lymph % (Auto) Aiken % (Auto) Eos % (Auto) Baso % (Auto) Gran # Lymph # (Auto) Aiken # (Auto) Eos # (Auto) Baso # (Auto) PT INR APTT D-Dimer, Quantitative pCO2 pO2 HCO3 ABG pH ABG Total CO2 ABG O2 Saturation ABG Base Excess ABG Potassium Glucose Lactate FiO2 Sodium 138 Potassium 4.0 Chloride 112 H Carbon Dioxide 7 L Anion Gap 24 H BUN 5 L Creatinine 0.5 L Est GFR ( Amer) > 60 Est GFR (Non-Af Amer) > 60 POC Glucose (mg/dL) 165 H Random Glucose 232 H Serum Osmolality Calcium 8.2 L Magnesium Total Bilirubin 0.9 AST 88 H ALT 134 H Alkaline Phosphatase 167 H Lactate Dehydrogenase Total Creatine Kinase Troponin I Total Protein 7.0 Albumin 3.7 Globulin 3.3 Albumin/Globulin Ratio 1.1 Lipase TSH 3rd Generation Arterial Blood Potassium Urine Color Urine Appearance Urine pH Ur Specific [place] Urine Protein Urine Glucose (UA) Urine Ketones Urine Blood Urine Nitrate Urine Bilirubin Urine Urobilinogen Ur Leukocyte Esterase Urine RBC Urine WBC Ur Epithelial Cells Urine Bacteria Hyaline Casts Urine Osmolality Ur Random Sodium Ur Random Potassium Salicylates < 1 L Urine Opiates Screen Urine Methadone Screen Acetaminophen < 10.0 L Ur Barbiturates Screen Ur Phencyclidine Scrn Ur Amphetamines Screen U Benzodiazepines Scrn U Oth Cocaine Metabols U Cannabinoids Screen Alcohol, Quantitative Assessment & Plan - Assessment and Plan (Free Text) Assessment: 23 year old morbidly obese male, admitted to ICU for DKA: Neuro: AAOx3 today. No change in mental status. Cont to monitor. No seizures. CV: Maintain MAP>65. Hemodynamically stable. Cont to monitor. Pulm: On RA. Saturating well. Maintain O2 sat>90% GI: Continue with Protonix. Renal : BUN/Cr 6/0.7. Replace lytes, maintain euvolemia. Continue to monitor. - s/p 2 L NS bolus in ED - nephro on board for anion gap metabolic acidosis 2/2 likely diabetic ketoacidosis. f/u recs ID: Afebrile, no leukocytosis. Continue to monitor. Endo: BS 302 on admission. UA + for ketones. Agap 23 on admission, currently 19. - Given blood glucose is 165 currently, will start insulin drip at 0.05 units/kg /hr, which is 6 units/hour. - HcO3 low noted on ABG. - Start D51/2 NS with 40 meq K @ 200 ml/hr - Give 40 meq Kdur PO - Once anion gap closes, will switch to sq insulin - BMP q4h - Dr Victor on board. Appreciate recs. Heme: Stable. Cont to monitor. Psych: Normal mood. DVT ppx - SCD GI ppx - Protonix Case seen and discussed with Dr Daivd Carlton. <David Carlton - Last Filed: 04/08/18 18:28> Meds - Medications Medications: Current Medications Dextrose (Dextrose 50% Inj) 0 ml IV STAT PRN; Protocol PRN Reason: Hypoglycemia Protocol Dextrose (Dextrose 5% In Water 1000 Ml) 1,000 mls @ 0 mls/hr IV .Q0M PRN; Protocol; Per Protocol PRN Reason: Hypoglycemia Protocol Potassium Chloride 40 meq/ (Dextrose/Sodium Chloride) 1,020 mls @ 200 mls/hr IV .Q5H6M [facility] Insulin Human Regular 100 (units/ Sodium Chloride) 100 mls @ 6 mls/hr IV .[id number] PRN; Protocol; 6 UNITS/HR PRN Reason: TITRATE PER MD ORDER Pantoprazole Sodium (Protonix Ec Tab) 40 mg PO 0600 [facility] Results - Vital Signs Recent Vital Signs: Last Vital Signs Temp 98.1 F 04/08/18 12:39 Pulse 100 H 04/08/18 16:00 Resp 18 04/08/18 16:00 BP 128/70 04/08/18 16:00 Pulse Ox 100 04/08/18 16:00 - Labs Result Diagrams: 04/08/18 13:35 04/08/18 16:50 Labs: Laboratory Results - last 24 hr 04/08/18 04/08/18 04/08/18 16:50 16:50 16:50 Sodium 138 Potassium 4.0 Chloride 112 H Carbon Dioxide 7 L Anion Gap 24 H BUN 5 L Creatinine 0.5 L Est GFR ( Amer) > 60 Est GFR (Non-Af Amer) > 60 POC Glucose (mg/dL) Random Glucose 232 H Serum Osmolality 299 Calcium 8.2 L Total Bilirubin 0.9 AST 88 H ALT 134 H Alkaline Phosphatase 167 H Total Protein 7.0 Albumin 3.7 Globulin 3.3 Albumin/Globulin Ratio 1.1 TSH 3rd Generation 1.90 Salicylates < 1 L Acetaminophen < 10.0 L Alcohol, Quantitative < 10 04/08/18 17:47 Sodium Potassium Chloride Carbon Dioxide Anion Gap BUN Creatinine Est GFR ( Amer) Est GFR (Non-Af Amer) POC Glucose (mg/dL) 165 H Random Glucose Serum Osmolality Calcium Total Bilirubin AST ALT Alkaline Phosphatase Total Protein Albumin Globulin Albumin/Globulin Ratio TSH 3rd Generation Salicylates Acetaminophen Alcohol, Quantitative Addendum Addendum: 04/08/18 18:28 ICU Attending Addendum: Patient seen and examined. Case reviewed on round with housestaff. Agree with resident note above with the following additions/exceptions: 23 M with no prior PMHx presents nausea and vomitting x 2-3 days. He was in his usual state of health until 3 days ago after eating [employer] he has vomitting 2 hours alter. Since then, he has not been able to hold down food. He has been drinking ginerale and eathing cup of noodle soup since. No diarrhea. In the ED, found to be in severe metabolic gap acidosis with elevated blood sugars. I suspect that he has an undiagnosed diabetes and thus is in DKA however he also may have some starvartion ketosis given his lack of food in the past 2 days. Will accept to ICU, start insulin drip with D51/2 given his most recent fingerstick of 251. Seriel BMP with lytes q 4 hours, 1 hour fingersticks. Follow up infectious workup f.u A1C Rest of care as noted above. David Carlton MD Early Childhood Worker Critical care time : 35 mins
[2018-04-08 20:37] LABS: VENOUS BLOOD GAS BASE EXCESS -17.2 mmol/L (0.0-2.0); VENOUS BLOOD GAS PO2 24 mm/Hg (30-55); VENOUS BLOOD PH 7.14 (7.32-7.43)
[2018-04-08 20:41] LABS: BLOOD UREA NITROGEN 4 mg/dL (7-21); CALCIUM 8.4 mg/dL (8.4-10.5); GFR NON-AFRICAN AMERICAN > 60
[2018-04-08 20:43] LABS: TROPONIN I < 0.01 ng/mL
[2018-04-08] MEDS ORDERED: Potassium Phosphate 15 MMOLE in Sodium Chloride 0.9% 250 ML IVPB ONE (21:04)
[2018-04-08 21:27] VITALS: BMI 40.4
[2018-04-08] MEDS ORDERED: Pneumococcal 23-Valent Vaccine IM ONE (21:27)
[2018-04-09] MEDS: Potassium Chloride 40 MEQ in Dextrose 5%/0.45% NS 1,000 ML IV SCH ×3 (00:04→11:20)
[2018-04-09 01:29] LABS: BLOOD UREA NITROGEN 4 mg/dL (7-21); CALCIUM 8.3 mg/dL (8.4-10.5); GFR NON-AFRICAN AMERICAN > 60
[2018-04-09 04:42] LABS: BASO # 0.02 K/mm3 (0.0-2.0); BASO % 0.3 % (0.0-3.0); EOS # 0.1 (0.0-0.7); EOS % 0.9 % (1.5-5.0); LYMPH # 1.9 (1.2-3.4); LYMPH % 27.7 % (22.0-35.0); MEAN CELL VOLUME 75.7 fl (80.0-105.0); MEAN CORPUSCULAR HEMOGLOBIN 26.7 pg (25.0-35.0); MEAN CORPUSCULAR HGB CONC 35.2 g/dl (31.0-37.0); MONO % 14.1 % (1.0-6.0); RBC 5.55 10^6/uL (3.5-6.1); RED CELL DISTRIBUTION WIDTH 15.2 % (11.5-14.5)
[2018-04-09 04:52] LABS: TROPONIN I < 0.01 ng/mL
[2018-04-09 05:05] LABS: WHITE BLOOD COUNT 6.8 10^3/ul (4.5-11.0)
[2018-04-09 05:06] LABS: HEMOGLOBIN 14.8 g/dL (14.0-18.0); PLATELET COUNT 120 10^3/uL (120.0-450.0)
[2018-04-09 05:07] LABS: BLOOD UREA NITROGEN 3 mg/dL (7-21); CALCIUM 8.3 mg/dL (8.4-10.5); GFR NON-AFRICAN AMERICAN > 60
[2018-04-09] MEDS ORDERED: Potassium Phosphate 15 MMOLE in Dextrose 5% In Water 250 ML IVPB ONE ×2 (05:40→09:21)
[2018-04-09] MEDS ORDERED: Potassium Phosphate 15 MMOLE in Sodium Chloride 0.9% 250 ML IVPB ONE ×2 (06:03→08:15)
[2018-04-09] MEDS: Pantoprazole 40 mg EC Tab PO SCH (06:11)
--- NOTE | 2018-04-09 07:41 | CARD ---
APPROVED REPORT Date of service: 04/08/2018 EKG Measurement Heart [id number] <Conclusion> Sinus tachycardia NSSTW changes Prolonged QTc
[2018-04-09 08:04] LABS: ARTERIAL BLOOD GAS HCO3 10.6 mmol/L (21-28); ARTERIAL BLOOD GAS HEMOGLOBIN 14.7 g/dL (11.7-17.4); ARTERIAL BLOOD GAS O2 CAPACITY 20.2 mL/dl (16-24); ARTERIAL BLOOD GAS O2 CONTENT 20.2 ML/dl (15-23); ARTERIAL BLOOD GAS PCO2 23 mm/Hg (35-45); ARTERIAL BLOOD GAS PH 7.27 (7.35-7.45); ARTERIAL BLOOD GAS TCO2 11.3 mmol.L (22-28)
[2018-04-09] MEDS ORDERED: Potassium & Sodium Phosphate PO ONE (08:04)
[2018-04-09] MEDS ORDERED: Potassium Chloride 20 mEq ER Tab PO ONE (08:05)
[2018-04-09] MEDS ORDERED: Potassium Phosphate 3 mmol/ml Inj IV ONE (08:30)
[2018-04-09 08:33] LABS: BLOOD UREA NITROGEN 2 mg/dL (7-21); CALCIUM 8.1 mg/dL (8.4-10.5); GFR NON-AFRICAN AMERICAN > 60
--- NOTE | 2018-04-09 09:18 | CARD ---
APPROVED REPORT Date of service: 04/09/2018 EKG Measurement Heart [id number] [id number] <Conclusion> Normal sinus rhythm Improved repolarization changes and slower rate c/w ECG 04/08/18 Normal ECG now.
[2018-04-09 09:22] LABS: HDL CHOLESTEROL 36 mg/dL (29-60)
[2018-04-09] MEDS ORDERED: Potassium Chloride 20 mEq ER Tab PO STA (09:23)
[2018-04-09] MEDS ORDERED: Insulin Detemir 100 units/ml Vial (Levemir) SC ONE ×2 (09:31→12:58)
[2018-04-09 09:32] LABS: LDL CHOLESTEROL 206 mg/dL (0-129)
--- NOTE | 2018-04-09 09:33 | PN ---
Copied To: Prasanna Gatica MD Attending MD: Prasanna Gatica MD DATE: 04/09/2018 SUBJECTIVE: The patient is seen and examined at bedside. He is comfortable. He talks full sentences. He is not in respiratory or otherwise distress. OBJECTIVE: VITAL SIGNS: Heart rate 71, respiratory rate 19, oxygen saturation 99% on room air, blood pressure 135/76. ENT: Head and neck atraumatic. LUNGS: Clear to auscultation bilaterally. HEART: Regular rhythm and rate. S1, S2 normal. ABDOMEN: Soft, nontender, nondistended. MUSCULOSKELETAL: No C/C/E. NEUROLOGIC: The patient moves all extremities spontaneously. SKIN: Moist. PSYCHIATRIC: The patient is alert, awake and oriented. Reports subjective improvement. No nausea, no vomiting. Doing well. LABORATORY DATA: Sodium 138, potassium 3.3, chloride 113, carbon dioxide 10, BUN 3, creatinine 0.5, glucose 247, calcium 8.3, phosphorus 1.5. Troponin less than 0.01. Recent ABG showed 7.27, up from 7.13; pCO2 23; pO2 118. Lactic acid 1.2. MEDICATIONS: D5 half-normal saline with potassium at 200 mL/hour, regular insulin drip at 6 units/hour, Protonix, potassium supplementation, potassium phosphate. CAT scan of the abdomen and pelvis did not reveal any changes consistent with colitis. ASSESSMENT AND PLAN: This is 23-year-old gentleman with new-onset diabetes presented as diabetic ketoacidosis. At present time, his anion gap is still 15 and he is on IV fluids and insulin drip. We are waiting for his morning BMP results to trend his anion gap. Electrolyte supplemented. Once his anion gap is closed, he will be switched to long-acting formulation of SC insulin. Meanwhile, BMP every 4 hours, Accu-Chek every 1 hour. As his blood glucose was less than 250, he was switched to D5 containing IV fluid solution. We will continue to target euvolemia, euglycemia, normothermia and oxygen saturation more than 90%. We will continue with deep venous thrombosis, gastrointestinal prophylaxes. Addendum: AG closed, levemir 50 U sc given, patient is eating, insulin drip stopped, ACcu changed to q4hrs. consult for Dr. Sawyer was placed ccm time 40 min Prasannasylvia Gatica MD Tomy # [id number] [facility]
--- NOTE | 2018-04-09 10:23 | CT ---
Date of service: 04/08/2018 PROCEDURE: CT Abdomen and Pelvis without intravenous contrast HISTORY: assess for collitis COMPARISON: None. TECHNIQUE: Without contrast.. Contrast dose: Radiation dose: Total exam DLP = 1694 mGy-cm. This CT exam was performed using one or more of the following dose reduction techniques: Automated exposure control, adjustment of the mA and/or kV according to patient size, and/or use of iterative reconstruction technique. FINDINGS: LOWER THORAX: Unremarkable. LIVER: Unremarkable. No gross lesion or ductal dilatation. There is severe fatty infiltration of the liver GALLBLADDER AND BILE DUCTS: Unremarkable. PANCREAS: Unremarkable. No gross lesion or ductal dilatation. SPLEEN: Unremarkable. ADRENALS: Unremarkable. No mass. KIDNEYS AND URETERS: Unremarkable. No hydronephrosis. No solid mass. VASCULATURE: Unremarkable. No aortic aneurysm. BOWEL: Unremarkable. No obstruction. No gross mural thickening. Mild fecal retention APPENDIX: Unremarkable. Normal appendix. PERITONEUM: Unremarkable. No free fluid. No free air. LYMPH NODES: Unremarkable. No enlarged lymph nodes. BLADDER: Unremarkable. REPRODUCTIVE: Unremarkable. BONES: No acute fracture. OTHER FINDINGS: The report concurs with the preliminary [facility] report IMPRESSION: Severe fatty infiltration of the liver. Mild fecal retention. No acute intra abdominal findings
--- NOTE | 2018-04-09 11:29 | CP.CCUPN ---
<Jennifer Farrell - Last Filed: 04/09/18 11:25> CCU Subjective - Physician Review Events Since Last Encounter (Free Text): 04/09/18 11:25 Patient seen and examined at bedside. No acute events overnight. Patient states that he feels better today, denies dizziness, nausea, vomiting, cp, sob, epigastric pain, leg swelling, urinary symptoms. Patient states that he is hungry and would like to eat. Critical Care Time Spent (in minutes): 60 CCU Objective - Vital Signs / Intake & Output Intake and Output (Last 8hrs): Intake & Output 04/08/18 04/09/18 04/09/18 22:59 06:59 14:59 Intake Total 6 2397 10.2 Output Total 1000 Balance 6 1397 10.2 Weight 258 lb Intake: IV 6 2397 10.2 Right Antecubital 2390 Output: Urine 1000 Urine, Voided 1000 Urine/Stool Mix 0 Other: Voiding Method Urinal - Physical Exam Head: Positive for: Atraumatic, Normocephalic Pupils: Positive for: PERRL Extroacular Muscles: Positive for: EOMI Conjunctiva: Positive for: Normal Mouth: Positive for: Moist Mucous Membranes Neck: Positive for: Normal Range of Motion Respiratory/Chest: Positive for: Clear to Auscultation, Good Air Exchange. Negative for: Respiratory Distress, Accessory Muscle Use, Wheezes, Decreased Breath Sounds, Rales, Retracting, Rhonchi Cardiovascular: Positive for: Regular Rate and Rhythm, Normal S1, S2. Negative for: Murmurs Abdomen: Negative for: Tenderness, Distention, Peritoneal Signs Back: Positive for: Normal Inspection Upper Extremity: Positive for: Normal Inspection. Negative for: Cyanosis, Edema Lower Extremity: Positive for: Normal Inspection. Negative for: Edema Neurological: Positive for: GCS=15, CN II-XII Intact, Speech Normal Skin: Positive for: Warm, Dry, Normal Color. Negative for: Rashes Psychiatric: Positive for: Alert, Oriented x 3, Normal Insight, Normal Concentration - Medications Active Medications: Active Medications Generic Name Dose Route Start Last Admin Trade Name Freq PRN Reason Stop Dose Admin Atorvastatin Calcium 20 mg 04/09/18 17:00 Lipitor PO DIN LEONARDO Dextrose 0 ml 04/08/18 16:49 Dextrose 50% Inj IV STAT PRN Hypoglycemia Protocol Protocol Dextrose 1,000 mls @ 0 mls/hr 04/08/18 16:49 Dextrose 5% In Water 1000 Ml IV .Q0M PRN Hypoglycemia Protocol Protocol Per Protocol Potassium Chloride 40 meq/ 1,020 mls @ 200 mls/hr 04/08/18 18:03 04/09/18 05: 18 Dextrose/Sodium Chloride IV 200 mls/hr .[id number] LEONARDO Administration Insulin Human Regular 100 100 mls @ 6 mls/hr 04/08/18 18:05 04/09/18 08:30 units/ Sodium Chloride IV 5 units/hr .[id number] PRN 5 mls/hr TITRATE PER MD ORDER Titration Protocol 6 UNITS/HR Potassium Phosphate 15 mmole/ 255 mls @ 42.5 mls/hr 04/09/18 06:03 04/09/18 06:14 Sodium Chloride IVPB 04/09/18 11:39 42.5 mls/hr ONCE ONE Administration Potassium Phosphate 15 mmole/ 255 mls @ 42.5 mls/hr 04/09/18 08:15 Sodium Chloride IVPB 04/09/18 14:14 ONCE ONE Insulin Human Regular 8 units 04/09/18 11:30 Humulin R SC AC LEONARDO Insulin Human Regular 0 units 04/09/18 11:30 Humulin R Med SC ACHS [facility] Protocol Pantoprazole Sodium 40 mg 04/09/18 06:00 04/09/18 06:11 Protonix Ec Tab PO 40 mg 0600 LEONARDO Administration - Patient Studies Lab Studies: Lab Studies 04/09/18 04/09/18 04/09/18 Range/Units 09:37 08:40 08:00 WBC (4.5-11.0) 10^3/ul RBC (3.5-6.1) 10^6/uL Hgb (14.0-18.0) g/dL Hct (42.0-52.0) % MCV (80.0-105.0) fl MCH (25.0-35.0) pg MCHC (31.0-37.0) g/dl RDW (11.5-14.5) % Plt Count (120.0-450.0) 10^3/uL Gran % (50.0-68.0) % Lymph % (Auto) (22.0-35.0) % Stanton % (Auto) (1.0-6.0) % Eos % (Auto) (1.5-5.0) % Baso % (Auto) (0.0-3.0) % Gran # (1.4-6.5) Lymph # (Auto) (1.2-3.4) Stanton # (Auto) (0.1-0.6) Eos # (Auto) (0.0-0.7) Baso # (Auto) (0.0-2.0) K/mm3 pCO2 23 L (35-45) mm/Hg pO2 118.0 H (30-55) mm/Hg HCO3 10.6 L (21-28) mmol/L ABG pH 7.27 L (7.35-7.45) ABG Total CO2 11.3 L (22-28) mmol.L ABG O2 Saturation 100.0 H (95-98) % ABG O2 Content 20.2 (15-23) ML/dl ABG Base Excess -14.2 L (-2.0-3.0) mmol/L ABG Hemoglobin 14.7 (11.7-17.4) g/dL ABG Carboxyhemoglobin 1.9 H (0.5-1.5) % POC ABG HHb (Measured) 0 (0-5) % ABG Methemoglobin 1.2 (0.0-3.0) % ABG O2 Capacity 20.2 (16-24) mL/dl VBG pH (7.32-7.43) VBG pCO2 (40-60) VBG HCO3 (21-28) mmol/l VBG O2 Sat (Calc) (40-65) % VBG Base Excess (0.0-2.0) mmol/L Hgb O2 Saturation 96.9 (95.0-98.0) % FiO2 21.0 % Sodium (132-148) mmol/L Potassium (3.6-5.0) mmol/L Chloride (98-107) mmol/L Carbon Dioxide (21-33) mmol/L Anion Gap (10-20) BUN (7-21) mg/dL Creatinine (0.8-1.5) mg/dl Est GFR ( Amer) Est GFR (Non-Af Amer) POC Glucose (mg/dL) 248 H 234 H (65-110) mg/dL Random Glucose (70-110) mg/dL Hemoglobin A1c (4.2-6.5) % Serum Osmolality (272-300) mosm/kg Calcium (8.4-10.5) mg/dL Phosphorus (2.5-4.5) mg/dL Magnesium (1.7-2.2) mg/dL Total Bilirubin (0.2-1.3) mg/dL AST (17-59) U/L ALT (7-56) U/L Alkaline Phosphatase (38-126) U/L Troponin I ng/mL Total Protein (5.8-8.3) g/dL Albumin (3.0-4.8) g/dL Globulin gm/dL Albumin/Globulin Ratio (1.1-1.8) Triglycerides (35-160) mg/dL Cholesterol (130-200) mg/dL LDL Cholesterol Direct (0-129) mg/dL HDL Cholesterol (29-60) mg/dL TSH 3rd Generation (0.46-4.68) mIU/mL Salicylates (2.0-20.0) mg/dL Acetaminophen (10.0-20.0) ug/ml Alcohol, Quantitative (0-10) mg/dL B-Hydroxybutyrate (0.02-0.27) mM 04/09/18 04/09/18 04/09/18 Range/Units 08:00 07:31 06:41 WBC (4.5-11.0) 10^3/ul RBC (3.5-6.1) 10^6/uL Hgb (14.0-18.0) g/dL Hct (42.0-52.0) % MCV (80.0-105.0) fl MCH (25.0-35.0) pg MCHC (31.0-37.0) g/dl RDW (11.5-14.5) % Plt Count (120.0-450.0) 10^3/uL Gran % (50.0-68.0) % Lymph % (Auto) (22.0-35.0) % Stanton % (Auto) (1.0-6.0) % Eos % (Auto) (1.5-5.0) % Baso % (Auto) (0.0-3.0) % Gran # (1.4-6.5) Lymph # (Auto) (1.2-3.4) Stanton # (Auto) (0.1-0.6) Eos # (Auto) (0.0-0.7) Baso # (Auto) (0.0-2.0) K/mm3 pCO2 (35-45) mm/Hg pO2 (30-55) mm/Hg HCO3 (21-28) mmol/L ABG pH (7.35-7.45) ABG Total CO2 (22-28) mmol.L ABG O2 Saturation (95-98) % ABG O2 Content (15-23) ML/dl ABG Base Excess (-2.0-3.0) mmol/L ABG Hemoglobin (11.7-17.4) g/dL ABG Carboxyhemoglobin (0.5-1.5) % POC ABG HHb (Measured) (0-5) % ABG Methemoglobin (0.0-3.0) % ABG O2 Capacity (16-24) mL/dl VBG pH (7.32-7.43) VBG pCO2 (40-60) VBG HCO3 (21-28) mmol/l VBG O2 Sat (Calc) (40-65) % VBG Base Excess (0.0-2.0) mmol/L Hgb O2 Saturation (95.0-98.0) % FiO2 % Sodium 137 (132-148) mmol/L Potassium 3.3 L (3.6-5.0) mmol/L Chloride 112 H (98-107) mmol/L Carbon Dioxide 12 L (21-33) mmol/L Anion Gap 16 (10-20) BUN 2 L (7-21) mg/dL Creatinine 0.5 L (0.8-1.5) mg/dl Est GFR ( Amer) > 60 Est GFR (Non-Af Amer) > 60 POC Glucose (mg/dL) 247 H 227 H (65-110) mg/dL Random Glucose 236 H (70-110) mg/dL Hemoglobin A1c (4.2-6.5) % Serum Osmolality (272-300) mosm/kg Calcium 8.1 L (8.4-10.5) mg/dL Phosphorus 1.6 L (2.5-4.5) mg/dL Magnesium 1.8 (1.7-2.2) mg/dL Total Bilirubin (0.2-1.3) mg/dL AST (17-59) U/L ALT (7-56) U/L Alkaline Phosphatase (38-126) U/L Troponin I ng/mL Total Protein (5.8-8.3) g/dL Albumin (3.0-4.8) g/dL Globulin gm/dL Albumin/Globulin Ratio (1.1-1.8) Triglycerides (35-160) mg/dL Cholesterol (130-200) mg/dL LDL Cholesterol Direct (0-129) mg/dL HDL Cholesterol (29-60) mg/dL TSH 3rd Generation (0.46-4.68) mIU/mL Salicylates (2.0-20.0) mg/dL Acetaminophen (10.0-20.0) ug/ml Alcohol, Quantitative (0-10) mg/dL B-Hydroxybutyrate (0.02-0.27) mM 04/09/18 04/09/18 04/09/18 Range/Units 05:52 05:30 04:28 WBC (4.5-11.0) 10^3/ul RBC (3.5-6.1) 10^6/uL Hgb (14.0-18.0) g/dL Hct (42.0-52.0) % MCV (80.0-105.0) fl MCH (25.0-35.0) pg MCHC (31.0-37.0) g/dl RDW (11.5-14.5) % Plt Count (120.0-450.0) 10^3/uL Gran % (50.0-68.0) % Lymph % (Auto) (22.0-35.0) % Stanton % (Auto) (1.0-6.0) % Eos % (Auto) (1.5-5.0) % Baso % (Auto) (0.0-3.0) % Gran # (1.4-6.5) Lymph # (Auto) (1.2-3.4) Stanton # (Auto) (0.1-0.6) Eos # (Auto) (0.0-0.7) Baso # (Auto) (0.0-2.0) K/mm3 pCO2 (35-45) mm/Hg pO2 (30-55) mm/Hg HCO3 (21-28) mmol/L ABG pH (7.35-7.45) ABG Total CO2 (22-28) mmol.L ABG O2 Saturation (95-98) % ABG O2 Content (15-23) ML/dl ABG Base Excess (-2.0-3.0) mmol/L ABG Hemoglobin (11.7-17.4) g/dL ABG Carboxyhemoglobin (0.5-1.5) % POC ABG HHb (Measured) (0-5) % ABG Methemoglobin (0.0-3.0) % ABG O2 Capacity (16-24) mL/dl VBG pH (7.32-7.43) VBG pCO2 (40-60) VBG HCO3 (21-28) mmol/l VBG O2 Sat (Calc) (40-65) % VBG Base Excess (0.0-2.0) mmol/L Hgb O2 Saturation (95.0-98.0) % FiO2 % Sodium (132-148) mmol/L Potassium (3.6-5.0) mmol/L Chloride (98-107) mmol/L Carbon Dioxide (21-33) mmol/L Anion Gap (10-20) BUN (7-21) mg/dL Creatinine (0.8-1.5) mg/dl Est GFR ( Amer) Est GFR (Non-Af Amer) POC Glucose (mg/dL) 256 H 236 H (65-110) mg/dL Random Glucose (70-110) mg/dL Hemoglobin A1c (4.2-6.5) % Serum Osmolality (272-300) mosm/kg Calcium (8.4-10.5) mg/dL Phosphorus (2.5-4.5) mg/dL Magnesium (1.7-2.2) mg/dL Total Bilirubin (0.2-1.3) mg/dL AST (17-59) U/L ALT (7-56) U/L Alkaline Phosphatase (38-126) U/L Troponin I ng/mL Total Protein (5.8-8.3) g/dL Albumin (3.0-4.8) g/dL Globulin gm/dL Albumin/Globulin Ratio (1.1-1.8) Triglycerides 174 H (35-160) mg/dL Cholesterol 267 H (130-200) mg/dL LDL Cholesterol Direct 206 H (0-129) mg/dL HDL Cholesterol 36 (29-60) mg/dL TSH 3rd Generation (0.46-4.68) mIU/mL Salicylates (2.0-20.0) mg/dL Acetaminophen (10.0-20.0) ug/ml Alcohol, Quantitative (0-10) mg/dL B-Hydroxybutyrate (0.02-0.27) mM 04/09/18 04/09/18 04/09/18 Range/Units 04:12 04:12 03:31 WBC 6.8 D (4.5-11.0) 10^3/ul RBC 5.55 (3.5-6.1) 10^6/uL Hgb 14.8 D (14.0-18.0) g/dL Hct 42.0 (42.0-52.0) % MCV 75.7 L (80.0-105.0) fl MCH 26.7 (25.0-35.0) pg MCHC 35.2 (31.0-37.0) g/dl RDW 15.2 H (11.5-14.5) % Plt Count 120 (120.0-450.0) 10^3/uL Gran % 57.0 (50.0-68.0) % Lymph % (Auto) 27.7 (22.0-35.0) % Stanton % (Auto) 14.1 H (1.0-6.0) % Eos % (Auto) 0.9 L (1.5-5.0) % Baso % (Auto) 0.3 (0.0-3.0) % Gran # 3.90 (1.4-6.5) Lymph # (Auto) 1.9 (1.2-3.4) Stanton # (Auto) 1.0 H (0.1-0.6) Eos # (Auto) 0.1 (0.0-0.7) Baso # (Auto) 0.02 (0.0-2.0) K/mm3 pCO2 (35-45) mm/Hg pO2 (30-55) mm/Hg HCO3 (21-28) mmol/L ABG pH (7.35-7.45) ABG Total CO2 (22-28) mmol.L ABG O2 Saturation (95-98) % ABG O2 Content (15-23) ML/dl ABG Base Excess (-2.0-3.0) mmol/L ABG Hemoglobin (11.7-17.4) g/dL ABG Carboxyhemoglobin (0.5-1.5) % POC ABG HHb (Measured) (0-5) % ABG Methemoglobin (0.0-3.0) % ABG O2 Capacity (16-24) mL/dl VBG pH (7.32-7.43) VBG pCO2 (40-60) VBG HCO3 (21-28) mmol/l VBG O2 Sat (Calc) (40-65) % VBG Base Excess (0.0-2.0) mmol/L Hgb O2 Saturation (95.0-98.0) % FiO2 % Sodium 138 (132-148) mmol/L Potassium 3.3 L (3.6-5.0) mmol/L Chloride 113 H (98-107) mmol/L Carbon Dioxide 10 L (21-33) mmol/L Anion Gap 18 (10-20) BUN 3 L (7-21) mg/dL Creatinine 0.5 L (0.8-1.5) mg/dl Est GFR ( Amer) > 60 Est GFR (Non-Af Amer) > 60 POC Glucose (mg/dL) 226 H (65-110) mg/dL Random Glucose 246 H (70-110) mg/dL Hemoglobin A1c (4.2-6.5) % Serum Osmolality (272-300) mosm/kg Calcium 8.3 L (8.4-10.5) mg/dL Phosphorus 1.5 L (2.5-4.5) mg/dL Magnesium 1.9 (1.7-2.2) mg/dL Total Bilirubin (0.2-1.3) mg/dL AST (17-59) U/L ALT (7-56) U/L Alkaline Phosphatase (38-126) U/L Troponin I < 0.01 ng/mL Total Protein (5.8-8.3) g/dL Albumin (3.0-4.8) g/dL Globulin gm/dL Albumin/Globulin Ratio (1.1-1.8) Triglycerides (35-160) mg/dL Cholesterol (130-200) mg/dL LDL Cholesterol Direct (0-129) mg/dL HDL Cholesterol (29-60) mg/dL TSH 3rd Generation (0.46-4.68) mIU/mL Salicylates (2.0-20.0) mg/dL Acetaminophen (10.0-20.0) ug/ml Alcohol, Quantitative (0-10) mg/dL B-Hydroxybutyrate (0.02-0.27) mM 04/09/18 04/09/18 04/09/18 Range/Units 02:25 01:36 00:28 WBC (4.5-11.0) 10^3/ul RBC (3.5-6.1) 10^6/uL Hgb (14.0-18.0) g/dL Hct (42.0-52.0) % MCV (80.0-105.0) fl MCH (25.0-35.0) pg MCHC (31.0-37.0) g/dl RDW (11.5-14.5) % Plt Count (120.0-450.0) 10^3/uL Gran % (50.0-68.0) % Lymph % (Auto) (22.0-35.0) % Stanton % (Auto) (1.0-6.0) % Eos % (Auto) (1.5-5.0) % Baso % (Auto) (0.0-3.0) % Gran # (1.4-6.5) Lymph # (Auto) (1.2-3.4) Stanton # (Auto) (0.1-0.6) Eos # (Auto) (0.0-0.7) Baso # (Auto) (0.0-2.0) K/mm3 pCO2 (35-45) mm/Hg pO2 (30-55) mm/Hg HCO3 (21-28) mmol/L ABG pH (7.35-7.45) ABG Total CO2 (22-28) mmol.L ABG O2 Saturation (95-98) % ABG O2 Content (15-23) ML/dl ABG Base Excess (-2.0-3.0) mmol/L ABG Hemoglobin (11.7-17.4) g/dL ABG Carboxyhemoglobin (0.5-1.5) % POC ABG HHb (Measured) (0-5) % ABG Methemoglobin (0.0-3.0) % ABG O2 Capacity (16-24) mL/dl VBG pH (7.32-7.43) VBG pCO2 (40-60) VBG HCO3 (21-28) mmol/l VBG O2 Sat (Calc) (40-65) % VBG Base Excess (0.0-2.0) mmol/L Hgb O2 Saturation (95.0-98.0) % FiO2 % Sodium 139 (132-148) mmol/L Potassium 3.6 (3.6-5.0) mmol/L Chloride 112 H (98-107) mmol/L Carbon Dioxide 11 L (21-33) mmol/L Anion Gap 19 (10-20) BUN 4 L (7-21) mg/dL Creatinine 0.6 L (0.8-1.5) mg/dl Est GFR ( Amer) > 60 Est GFR (Non-Af Amer) > 60 POC Glucose (mg/dL) 217 H 205 H (65-110) mg/dL Random Glucose 205 H (70-110) mg/dL Hemoglobin A1c (4.2-6.5) % Serum Osmolality (272-300) mosm/kg Calcium 8.3 L (8.4-10.5) mg/dL Phosphorus 0.8 L* (2.5-4.5) mg/dL Magnesium 2.0 (1.7-2.2) mg/dL Total Bilirubin (0.2-1.3) mg/dL AST (17-59) U/L ALT (7-56) U/L Alkaline Phosphatase (38-126) U/L Troponin I ng/mL Total Protein (5.8-8.3) g/dL Albumin (3.0-4.8) g/dL Globulin gm/dL Albumin/Globulin Ratio (1.1-1.8) Triglycerides (35-160) mg/dL Cholesterol (130-200) mg/dL LDL Cholesterol Direct (0-129) mg/dL HDL Cholesterol (29-60) mg/dL TSH 3rd Generation (0.46-4.68) mIU/mL Salicylates (2.0-20.0) mg/dL Acetaminophen (10.0-20.0) ug/ml Alcohol, Quantitative (0-10) mg/dL B-Hydroxybutyrate (0.02-0.27) mM 04/08/18 04/08/18 04/08/18 Range/Units 21:34 20:40 20:30 WBC (4.5-11.0) 10^3/ul RBC (3.5-6.1) 10^6/uL Hgb (14.0-18.0) g/dL Hct (42.0-52.0) % MCV (80.0-105.0) fl MCH (25.0-35.0) pg MCHC (31.0-37.0) g/dl RDW (11.5-14.5) % Plt Count (120.0-450.0) 10^3/uL Gran % (50.0-68.0) % Lymph % (Auto) (22.0-35.0) % Stanton % (Auto) (1.0-6.0) % Eos % (Auto) (1.5-5.0) % Baso % (Auto) (0.0-3.0) % Gran # (1.4-6.5) Lymph # (Auto) (1.2-3.4) Stanton # (Auto) (0.1-0.6) Eos # (Auto) (0.0-0.7) Baso # (Auto) (0.0-2.0) K/mm3 pCO2 (35-45) mm/Hg pO2 24 L (30-55) mm/Hg HCO3 (21-28) mmol/L ABG pH (7.35-7.45) ABG Total CO2 (22-28) mmol.L ABG O2 Saturation (95-98) % ABG O2 Content (15-23) ML/dl ABG Base Excess (-2.0-3.0) mmol/L ABG Hemoglobin (11.7-17.4) g/dL ABG Carboxyhemoglobin (0.5-1.5) % POC ABG HHb (Measured) (0-5) % ABG Methemoglobin (0.0-3.0) % ABG O2 Capacity (16-24) mL/dl VBG pH 7.14 L* (7.32-7.43) VBG pCO2 31.0 L (40-60) VBG HCO3 10.6 L (21-28) mmol/l VBG O2 Sat (Calc) 55.3 (40-65) % VBG Base Excess -17.2 L (0.0-2.0) mmol/L Hgb O2 Saturation (95.0-98.0) % FiO2 % Sodium (132-148) mmol/L Potassium (3.6-5.0) mmol/L Chloride (98-107) mmol/L Carbon Dioxide (21-33) mmol/L Anion Gap (10-20) BUN (7-21) mg/dL Creatinine (0.8-1.5) mg/dl Est GFR ( Amer) Est GFR (Non-Af Amer) POC Glucose (mg/dL) 243 H 207 H (65-110) mg/dL Random Glucose (70-110) mg/dL Hemoglobin A1c (4.2-6.5) % Serum Osmolality (272-300) mosm/kg Calcium (8.4-10.5) mg/dL Phosphorus (2.5-4.5) mg/dL Magnesium (1.7-2.2) mg/dL Total Bilirubin (0.2-1.3) mg/dL AST (17-59) U/L ALT (7-56) U/L Alkaline Phosphatase (38-126) U/L Troponin I ng/mL Total Protein (5.8-8.3) g/dL Albumin (3.0-4.8) g/dL Globulin gm/dL Albumin/Globulin Ratio (1.1-1.8) Triglycerides (35-160) mg/dL Cholesterol (130-200) mg/dL LDL Cholesterol Direct (0-129) mg/dL HDL Cholesterol (29-60) mg/dL TSH 3rd Generation (0.46-4.68) mIU/mL Salicylates (2.0-20.0) mg/dL Acetaminophen (10.0-20.0) ug/ml Alcohol, Quantitative (0-10) mg/dL B-Hydroxybutyrate (0.02-0.27) mM 08/27/18 08/27/18 08/27/18 Range/Units 20:15 19:11 17:47 WBC (4.5-11.0) 10^3/ul RBC (3.5-6.1) 10^6/uL Hgb (14.0-18.0) g/dL Hct (42.0-52.0) % MCV (80.0-105.0) fl MCH (25.0-35.0) pg MCHC (31.0-37.0) g/dl RDW (11.5-14.5) % Plt Count (120.0-450.0) 10^3/uL Gran % (50.0-68.0) % Lymph % (Auto) (22.0-35.0) % Stanton % (Auto) (1.0-6.0) % Eos % (Auto) (1.5-5.0) % Baso % (Auto) (0.0-3.0) % Gran # (1.4-6.5) Lymph # (Auto) (1.2-3.4) Stanton # (Auto) (0.1-0.6) Eos # (Auto) (0.0-0.7) Baso # (Auto) (0.0-2.0) K/mm3 pCO2 (35-45) mm/Hg pO2 (30-55) mm/Hg HCO3 (21-28) mmol/L ABG pH (7.35-7.45) ABG Total CO2 (22-28) mmol.L ABG O2 Saturation (95-98) % ABG O2 Content (15-23) ML/dl ABG Base Excess (-2.0-3.0) mmol/L ABG Hemoglobin (11.7-17.4) g/dL ABG Carboxyhemoglobin (0.5-1.5) % POC ABG HHb (Measured) (0-5) % ABG Methemoglobin (0.0-3.0) % ABG O2 Capacity (16-24) mL/dl VBG pH (7.32-7.43) VBG pCO2 (40-60) VBG HCO3 (21-28) mmol/l VBG O2 Sat (Calc) (40-65) % VBG Base Excess (0.0-2.0) mmol/L Hgb O2 Saturation (95.0-98.0) % FiO2 % Sodium 140 (132-148) mmol/L Potassium 4.1 (3.6-5.0) mmol/L Chloride 112 H (98-107) mmol/L Carbon Dioxide 10 L D (21-33) mmol/L Anion Gap 22 H (10-20) BUN 4 L (7-21) mg/dL Creatinine 0.6 L (0.8-1.5) mg/dl Est GFR ( Amer) > 60 Est GFR (Non-Af Amer) > 60 POC Glucose (mg/dL) 220 H 165 H (65-110) mg/dL Random Glucose 231 H (70-110) mg/dL Hemoglobin A1c (4.2-6.5) % Serum Osmolality (272-300) mosm/kg Calcium 8.4 (8.4-10.5) mg/dL Phosphorus 0.8 L* (2.5-4.5) mg/dL Magnesium 1.9 (1.7-2.2) mg/dL Total Bilirubin (0.2-1.3) mg/dL AST (17-59) U/L ALT (7-56) U/L Alkaline Phosphatase (38-126) U/L Troponin I < 0.01 ng/mL Total Protein (5.8-8.3) g/dL Albumin (3.0-4.8) g/dL Globulin gm/dL Albumin/Globulin Ratio (1.1-1.8) Triglycerides (35-160) mg/dL Cholesterol (130-200) mg/dL LDL Cholesterol Direct (0-129) mg/dL HDL Cholesterol (29-60) mg/dL TSH 3rd Generation (0.46-4.68) mIU/mL Salicylates (2.0-20.0) mg/dL Acetaminophen (10.0-20.0) ug/ml Alcohol, Quantitative (0-10) mg/dL B-Hydroxybutyrate (0.02-0.27) mM 04/08/18 04/08/18 04/08/18 Range/Units 16:50 16:50 16:50 WBC (4.5-11.0) 10^3/ul RBC (3.5-6.1) 10^6/uL Hgb (14.0-18.0) g/dL Hct (42.0-52.0) % MCV (80.0-105.0) fl MCH (25.0-35.0) pg MCHC (31.0-37.0) g/dl RDW (11.5-14.5) % Plt Count (120.0-450.0) 10^3/uL Gran % (50.0-68.0) % Lymph % (Auto) (22.0-35.0) % Stanton % (Auto) (1.0-6.0) % Eos % (Auto) (1.5-5.0) % Baso % (Auto) (0.0-3.0) % Gran # (1.4-6.5) Lymph # (Auto) (1.2-3.4) Stanton # (Auto) (0.1-0.6) Eos # (Auto) (0.0-0.7) Baso # (Auto) (0.0-2.0) K/mm3 pCO2 (35-45) mm/Hg pO2 (30-55) mm/Hg HCO3 (21-28) mmol/L ABG pH (7.35-7.45) ABG Total CO2 (22-28) mmol.L ABG O2 Saturation (95-98) % ABG O2 Content (15-23) ML/dl ABG Base Excess (-2.0-3.0) mmol/L ABG Hemoglobin (11.7-17.4) g/dL ABG Carboxyhemoglobin (0.5-1.5) % POC ABG HHb (Measured) (0-5) % ABG Methemoglobin (0.0-3.0) % ABG O2 Capacity (16-24) mL/dl VBG pH (7.32-7.43) VBG pCO2 (40-60) VBG HCO3 (21-28) mmol/l VBG O2 Sat (Calc) (40-65) % VBG Base Excess (0.0-2.0) mmol/L Hgb O2 Saturation (95.0-98.0) % FiO2 % Sodium 138 (132-148) mmol/L Potassium 4.0 (3.6-5.0) mmol/L Chloride 112 H (98-107) mmol/L Carbon Dioxide 7 L (21-33) mmol/L Anion Gap 24 H (10-20) BUN 5 L (7-21) mg/dL Creatinine 0.5 L (0.8-1.5) mg/dl Est GFR ( Amer) > 60 Est GFR (Non-Af Amer) > 60 POC Glucose (mg/dL) (65-110) mg/dL Random Glucose 232 H (70-110) mg/dL Hemoglobin A1c 13.9 H (4.2-6.5) % Serum Osmolality (272-300) mosm/kg Calcium 8.2 L (8.4-10.5) mg/dL Phosphorus (2.5-4.5) mg/dL Magnesium (1.7-2.2) mg/dL Total Bilirubin 0.9 (0.2-1.3) mg/dL AST 88 H (17-59) U/L ALT 134 H (7-56) U/L Alkaline Phosphatase 167 H (38-126) U/L Troponin I ng/mL Total Protein 7.0 (5.8-8.3) g/dL Albumin 3.7 (3.0-4.8) g/dL Globulin 3.3 gm/dL Albumin/Globulin Ratio 1.1 (1.1-1.8) Triglycerides (35-160) mg/dL Cholesterol (130-200) mg/dL LDL Cholesterol Direct (0-129) mg/dL HDL Cholesterol (29-60) mg/dL TSH 3rd Generation (0.46-4.68) mIU/mL Salicylates < 1 L (2.0-20.0) mg/dL Acetaminophen < 10.0 L (10.0-20.0) ug/ml Alcohol, Quantitative (0-10) mg/dL B-Hydroxybutyrate 7.02 H (0.02-0.27) mM 04/08/18 Range/Units 16:50 WBC (4.5-11.0) 10^3/ul RBC (3.5-6.1) 10^6/uL Hgb (14.0-18.0) g/dL Hct (42.0-52.0) % MCV (80.0-105.0) fl MCH (25.0-35.0) pg MCHC (31.0-37.0) g/dl RDW (11.5-14.5) % Plt Count (120.0-450.0) 10^3/uL Gran % (50.0-68.0) % Lymph % (Auto) (22.0-35.0) % Stanton % (Auto) (1.0-6.0) % Eos % (Auto) (1.5-5.0) % Baso % (Auto) (0.0-3.0) % Gran # (1.4-6.5) Lymph # (Auto) (1.2-3.4) Stanton # (Auto) (0.1-0.6) Eos # (Auto) (0.0-0.7) Baso # (Auto) (0.0-2.0) K/mm3 pCO2 (35-45) mm/Hg pO2 (30-55) mm/Hg HCO3 (21-28) mmol/L ABG pH (7.35-7.45) ABG Total CO2 (22-28) mmol.L ABG O2 Saturation (95-98) % ABG O2 Content (15-23) ML/dl ABG Base Excess (-2.0-3.0) mmol/L ABG Hemoglobin (11.7-17.4) g/dL ABG Carboxyhemoglobin (0.5-1.5) % POC ABG HHb (Measured) (0-5) % ABG Methemoglobin (0.0-3.0) % ABG O2 Capacity (16-24) mL/dl VBG pH (7.32-7.43) VBG pCO2 (40-60) VBG HCO3 (21-28) mmol/l VBG O2 Sat (Calc) (40-65) % VBG Base Excess (0.0-2.0) mmol/L Hgb O2 Saturation (95.0-98.0) % FiO2 % Sodium (132-148) mmol/L Potassium (3.6-5.0) mmol/L Chloride (98-107) mmol/L Carbon Dioxide (21-33) mmol/L Anion Gap (10-20) BUN (7-21) mg/dL Creatinine (0.8-1.5) mg/dl Est GFR ( Amer) Est GFR (Non-Af Amer) POC Glucose (mg/dL) (65-110) mg/dL Random Glucose (70-110) mg/dL Hemoglobin A1c (4.2-6.5) % Serum Osmolality 299 (272-300) mosm/kg Calcium (8.4-10.5) mg/dL Phosphorus (2.5-4.5) mg/dL Magnesium (1.7-2.2) mg/dL Total Bilirubin (0.2-1.3) mg/dL AST (17-59) U/L ALT (7-56) U/L Alkaline Phosphatase (38-126) U/L Troponin I ng/mL Total Protein (5.8-8.3) g/dL Albumin (3.0-4.8) g/dL Globulin gm/dL Albumin/Globulin Ratio (1.1-1.8) Triglycerides (35-160) mg/dL Cholesterol (130-200) mg/dL LDL Cholesterol Direct (0-129) mg/dL HDL Cholesterol (29-60) mg/dL TSH 3rd Generation 1.90 (0.46-4.68) mIU/mL Salicylates (2.0-20.0) mg/dL Acetaminophen (10.0-20.0) ug/ml Alcohol, Quantitative < 10 (0-10) mg/dL B-Hydroxybutyrate (0.02-0.27) mM Laboratory Results - last 24 hr 04/08/18 04/08/18 04/08/18 16:50 16:50 16:50 WBC RBC Hgb Hct MCV MCH MCHC RDW Plt Count Gran % Lymph % (Auto) Stanton % (Auto) Eos % (Auto) Baso % (Auto) Gran # Lymph # (Auto) Stanton # (Auto) Eos # (Auto) Baso # (Auto) pCO2 pO2 HCO3 ABG pH ABG Total CO2 ABG O2 Saturation ABG O2 Content ABG Base Excess ABG Hemoglobin ABG Carboxyhemoglobin POC ABG HHb (Measured) ABG Methemoglobin ABG O2 Capacity VBG pH VBG pCO2 VBG HCO3 VBG O2 Sat (Calc) VBG Base Excess Hgb O2 Saturation FiO2 Sodium Potassium Chloride Carbon Dioxide Anion Gap BUN Creatinine Est GFR ( Amer) Est GFR (Non-Af Amer) POC Glucose (mg/dL) Random Glucose Hemoglobin A1c 13.9 H Serum Osmolality 299 Calcium Phosphorus Magnesium Total Bilirubin AST ALT Alkaline Phosphatase Troponin I Total Protein Albumin Globulin Albumin/Globulin Ratio Triglycerides Cholesterol LDL Cholesterol Direct HDL Cholesterol TSH 3rd Generation 1.90 Salicylates < 1 L Acetaminophen < 10.0 L Alcohol, Quantitative < 10 B-Hydroxybutyrate 04/08/18 04/08/18 04/08/18 16:50 17:47 19:11 WBC RBC Hgb Hct MCV MCH MCHC RDW Plt Count Gran % Lymph % (Auto) Stanton % (Auto) Eos % (Auto) Baso % (Auto) Gran # Lymph # (Auto) Stanton # (Auto) Eos # (Auto) Baso # (Auto) pCO2 pO2 HCO3 ABG pH ABG Total CO2 ABG O2 Saturation ABG O2 Content ABG Base Excess ABG Hemoglobin ABG Carboxyhemoglobin POC ABG HHb (Measured) ABG Methemoglobin ABG O2 Capacity VBG pH VBG pCO2 VBG HCO3 VBG O2 Sat (Calc) VBG Base Excess Hgb O2 Saturation FiO2 Sodium 138 Potassium 4.0 Chloride 112 H Carbon Dioxide 7 L Anion Gap 24 H BUN 5 L Creatinine 0.5 L Est GFR ( Amer) > 60 Est GFR (Non-Af Amer) > 60 POC Glucose (mg/dL) 165 H 220 H Random Glucose 232 H Hemoglobin A1c Serum Osmolality Calcium 8.2 L Phosphorus Magnesium Total Bilirubin 0.9 AST 88 H ALT 134 H Alkaline Phosphatase 167 H Troponin I Total Protein 7.0 Albumin 3.7 Globulin 3.3 Albumin/Globulin Ratio 1.1 Triglycerides Cholesterol LDL Cholesterol Direct HDL Cholesterol TSH 3rd Generation Salicylates Acetaminophen Alcohol, Quantitative B-Hydroxybutyrate 7.02 H 04/08/18 04/08/18 04/08/18 20:15 20:30 20:40 WBC RBC Hgb Hct MCV MCH MCHC RDW Plt Count Gran % Lymph % (Auto) Stanton % (Auto) Eos % (Auto) Baso % (Auto) Gran # Lymph # (Auto) Stanton # (Auto) Eos # (Auto) Baso # (Auto) pCO2 pO2 24 L HCO3 ABG pH ABG Total CO2 ABG O2 Saturation ABG O2 Content ABG Base Excess ABG Hemoglobin ABG Carboxyhemoglobin POC ABG HHb (Measured) ABG Methemoglobin ABG O2 Capacity VBG pH 7.14 L* VBG pCO2 31.0 L VBG HCO3 10.6 L VBG O2 Sat (Calc) 55.3 VBG Base Excess -17.2 L Hgb O2 Saturation FiO2 Sodium 140 Potassium 4.1 Chloride 112 H Carbon Dioxide 10 L D Anion Gap 22 H BUN 4 L Creatinine 0.6 L Est GFR ( Amer) > 60 Est GFR (Non-Af Amer) > 60 POC Glucose (mg/dL) 207 H Random Glucose 231 H Hemoglobin A1c Serum Osmolality Calcium 8.4 Phosphorus 0.8 L* Magnesium 1.9 Total Bilirubin AST ALT Alkaline Phosphatase Troponin I < 0.01 Total Protein Albumin Globulin Albumin/Globulin Ratio Triglycerides Cholesterol LDL Cholesterol Direct HDL Cholesterol TSH 3rd Generation Salicylates Acetaminophen Alcohol, Quantitative B-Hydroxybutyrate 04/08/18 04/09/18 04/09/18 21:34 00:28 01:36 WBC RBC Hgb Hct MCV MCH MCHC RDW Plt Count Gran % Lymph % (Auto) Stanton % (Auto) Eos % (Auto) Baso % (Auto) Gran # Lymph # (Auto) Stanton # (Auto) Eos # (Auto) Baso # (Auto) pCO2 pO2 HCO3 ABG pH ABG Total CO2 ABG O2 Saturation ABG O2 Content ABG Base Excess ABG Hemoglobin ABG Carboxyhemoglobin POC ABG HHb (Measured) ABG Methemoglobin ABG O2 Capacity VBG pH VBG pCO2 VBG HCO3 VBG O2 Sat (Calc) VBG Base Excess Hgb O2 Saturation FiO2 Sodium 139 Potassium 3.6 Chloride 112 H Carbon Dioxide 11 L Anion Gap 19 BUN 4 L Creatinine 0.6 L Est GFR ( Amer) > 60 Est GFR (Non-Af Amer) > 60 POC Glucose (mg/dL) 243 H 205 H Random Glucose 205 H Hemoglobin A1c Serum Osmolality Calcium 8.3 L Phosphorus 0.8 L* Magnesium 2.0 Total Bilirubin AST ALT Alkaline Phosphatase Troponin I Total Protein Albumin Globulin Albumin/Globulin Ratio Triglycerides Cholesterol LDL Cholesterol Direct HDL Cholesterol TSH 3rd Generation Salicylates Acetaminophen Alcohol, Quantitative B-Hydroxybutyrate 04/09/18 04/09/18 04/09/18 02:25 03:31 04:12 WBC RBC Hgb Hct MCV MCH MCHC RDW Plt Count Gran % Lymph % (Auto) Stanton % (Auto) Eos % (Auto) Baso % (Auto) Gran # Lymph # (Auto) Stanton # (Auto) Eos # (Auto) Baso # (Auto) pCO2 pO2 HCO3 ABG pH ABG Total CO2 ABG O2 Saturation ABG O2 Content ABG Base Excess ABG Hemoglobin ABG Carboxyhemoglobin POC ABG HHb (Measured) ABG Methemoglobin ABG O2 Capacity VBG pH VBG pCO2 VBG HCO3 VBG O2 Sat (Calc) VBG Base Excess Hgb O2 Saturation FiO2 Sodium 138 Potassium 3.3 L Chloride 113 H Carbon Dioxide 10 L Anion Gap 18 BUN 3 L Creatinine 0.5 L Est GFR ( Amer) > 60 Est GFR (Non-Af Amer) > 60 POC Glucose (mg/dL) 217 H 226 H Random Glucose 246 H Hemoglobin A1c Serum Osmolality Calcium 8.3 L Phosphorus 1.5 L Magnesium 1.9 Total Bilirubin AST ALT Alkaline Phosphatase Troponin I < 0.01 Total Protein Albumin Globulin Albumin/Globulin Ratio Triglycerides Cholesterol LDL Cholesterol Direct HDL Cholesterol TSH 3rd Generation Salicylates Acetaminophen Alcohol, Quantitative B-Hydroxybutyrate 04/09/18 04/09/18 04/09/18 04:12 04:28 05:30 WBC 6.8 D RBC 5.55 Hgb 14.8 D Hct 42.0 MCV 75.7 L MCH 26.7 MCHC 35.2 RDW 15.2 H Plt Count 120 Gran % 57.0 Lymph % (Auto) 27.7 Stanton % (Auto) 14.1 H Eos % (Auto) 0.9 L Baso % (Auto) 0.3 Gran # 3.90 Lymph # (Auto) 1.9 Stanton # (Auto) 1.0 H Eos # (Auto) 0.1 Baso # (Auto) 0.02 pCO2 pO2 HCO3 ABG pH ABG Total CO2 ABG O2 Saturation ABG O2 Content ABG Base Excess ABG Hemoglobin ABG Carboxyhemoglobin POC ABG HHb (Measured) ABG Methemoglobin ABG O2 Capacity VBG pH VBG pCO2 VBG HCO3 VBG O2 Sat (Calc) VBG Base Excess Hgb O2 Saturation FiO2 Sodium Potassium Chloride Carbon Dioxide Anion Gap BUN Creatinine Est GFR ( Amer) Est GFR (Non-Af Amer) POC Glucose (mg/dL) 236 H Random Glucose Hemoglobin A1c Serum Osmolality Calcium Phosphorus Magnesium Total Bilirubin AST ALT Alkaline Phosphatase Troponin I Total Protein Albumin Globulin Albumin/Globulin Ratio Triglycerides 174 H Cholesterol 267 H LDL Cholesterol Direct 206 H HDL Cholesterol 36 TSH 3rd Generation Salicylates Acetaminophen Alcohol, Quantitative B-Hydroxybutyrate 04/09/18 04/09/18 04/09/18 05:52 06:41 07:31 WBC RBC Hgb Hct MCV MCH MCHC RDW Plt Count Gran % Lymph % (Auto) Stanton % (Auto) Eos % (Auto) Baso % (Auto) Gran # Lymph # (Auto) Stanton # (Auto) Eos # (Auto) Baso # (Auto) pCO2 pO2 HCO3 ABG pH ABG Total CO2 ABG O2 Saturation ABG O2 Content ABG Base Excess ABG Hemoglobin ABG Carboxyhemoglobin POC ABG HHb (Measured) ABG Methemoglobin ABG O2 Capacity VBG pH VBG pCO2 VBG HCO3 VBG O2 Sat (Calc) VBG Base Excess Hgb O2 Saturation FiO2 Sodium Potassium Chloride Carbon Dioxide Anion Gap BUN Creatinine Est GFR ( Amer) Est GFR (Non-Af Amer) POC Glucose (mg/dL) 256 H 227 H 247 H Random Glucose Hemoglobin A1c Serum Osmolality Calcium Phosphorus Magnesium Total Bilirubin AST ALT Alkaline Phosphatase Troponin I Total Protein Albumin Globulin Albumin/Globulin Ratio Triglycerides Cholesterol LDL Cholesterol Direct HDL Cholesterol TSH 3rd Generation Salicylates Acetaminophen Alcohol, Quantitative B-Hydroxybutyrate 04/09/18 04/09/18 04/09/18 08:00 08:00 08:40 WBC RBC Hgb Hct MCV MCH MCHC RDW Plt Count Gran % Lymph % (Auto) Stanton % (Auto) Eos % (Auto) Baso % (Auto) Gran # Lymph # (Auto) Stanton # (Auto) Eos # (Auto) Baso # (Auto) pCO2 23 L pO2 118.0 H HCO3 10.6 L ABG pH 7.27 L ABG Total CO2 11.3 L ABG O2 Saturation 100.0 H ABG O2 Content 20.2 ABG Base Excess -14.2 L ABG Hemoglobin 14.7 ABG Carboxyhemoglobin 1.9 H POC ABG HHb (Measured) 0 ABG Methemoglobin 1.2 ABG O2 Capacity 20.2 VBG pH VBG pCO2 VBG HCO3 VBG O2 Sat (Calc) VBG Base Excess Hgb O2 Saturation 96.9 FiO2 21.0 Sodium 137 Potassium 3.3 L Chloride 112 H Carbon Dioxide 12 L Anion Gap 16 BUN 2 L Creatinine 0.5 L Est GFR ( Amer) > 60 Est GFR (Non-Af Amer) > 60 POC Glucose (mg/dL) 234 H Random Glucose 236 H Hemoglobin A1c Serum Osmolality Calcium 8.1 L Phosphorus 1.6 L Magnesium 1.8 Total Bilirubin AST ALT Alkaline Phosphatase Troponin I Total Protein Albumin Globulin Albumin/Globulin Ratio Triglycerides Cholesterol LDL Cholesterol Direct HDL Cholesterol TSH 3rd Generation Salicylates Acetaminophen Alcohol, Quantitative B-Hydroxybutyrate 04/09/18 09:37 WBC RBC Hgb Hct MCV MCH MCHC RDW Plt Count Gran % Lymph % (Auto) Stanton % (Auto) Eos % (Auto) Baso % (Auto) Gran # Lymph # (Auto) Stanton # (Auto) Eos # (Auto) Baso # (Auto) pCO2 pO2 HCO3 ABG pH ABG Total CO2 ABG O2 Saturation ABG O2 Content ABG Base Excess ABG Hemoglobin ABG Carboxyhemoglobin POC ABG HHb (Measured) ABG Methemoglobin ABG O2 Capacity VBG pH VBG pCO2 VBG HCO3 VBG O2 Sat (Calc) VBG Base Excess Hgb O2 Saturation FiO2 Sodium Potassium Chloride Carbon Dioxide Anion Gap BUN Creatinine Est GFR ( Amer) Est GFR (Non-Af Amer) POC Glucose (mg/dL) 248 H Random Glucose Hemoglobin A1c Serum Osmolality Calcium Phosphorus Magnesium Total Bilirubin AST ALT Alkaline Phosphatase Troponin I Total Protein Albumin Globulin Albumin/Globulin Ratio Triglycerides Cholesterol LDL Cholesterol Direct HDL Cholesterol TSH 3rd Generation Salicylates Acetaminophen Alcohol, Quantitative B-Hydroxybutyrate EKG/Cardiology Studies: Cardiology / EKG Studies 04/08/18 12:49 EKG [ELECTROCARDIOGRAM] Stat Comment: Reason For Exam: CHEST PAIN Fingerstick Blood Sugar Results: 248 Review of Systems - Review of Systems All systems: reviewed and no additional remarkable complaints except Review of Systems: as per HPI Critical Care Progress Note - Nutrition Nutrition: Nutrition Category Date Time Status Consistent Carbohydrate [DIET] Diets 04/09/18 Lunch Ordered Assessment/Plan - Assessment and Plan (Free Text) Assessment: 23 year old morbidly obese male, admitted to ICU for DKA. Patient's anion gap closed with morning, switched to subQ insulin, started PO diet, endocrinology consulted: Neuro: AAOx3 today. No change in mental status. Cont to monitor. No seizures. CV: Maintain MAP>65. Hemodynamically stable. Cont to monitor. Pulm: On RA. Saturating well. GI: Started carb consistent diet. Continue with Protonix. Renal: Repleted lytes, maintain euvolemia. Continue to monitor. - s/p 2-3 L NS bolus in ED - nephro on board for anion gap metabolic acidosis 2/2 likely diabetic ketoacidosis. appreciate recs - will switch hydration to NS @100/hr ID: Afebrile, no leukocytosis. Continue to monitor. Endo: BS 302 on admission. UA + for ketones. Agap 23 on admission - AGap closed. switched to Insulin sq. - Dr Sawyer consulted. F/u recs. - HcO3 low noted on ABG, improving - start NS @ 100/hr. Heme: Stable. Cont to monitor. Psych: Normal mood. DVT ppx - SCD GI ppx - Protonix Dispo: Patient transferred to Med-surg. Case seen and discussed with Dr Gatica. <Prasanna Gatica - Last Filed: 04/09/18 16:44> CCU Objective - Vital Signs / Intake & Output Vital Signs (Last 4 hours): Vital Signs Pulse Resp Pulse Ox 04/09/18 13:20 106 H 18 04/09/18 13:10 102 H 28 H 99 04/09/18 13:00 82 18 99 04/09/18 12:50 79 19 99 Intake and Output (Last 8hrs): Intake & Output 04/09/18 04/09/18 04/09/18 06:59 14:59 22:59 Intake Total 2397 20.2 1944 Output Total 1000 800 Balance 1397 20.2 1144 Intake: IV 2397 20.2 1464 Right Antecubital 2390 Right Hand 1464 Oral 480 Output: Urine 1000 800 Urine, Voided 1000 800 Stool 0 Urine/Stool Mix 0 Emesis 0 - Medications Active Medications: Active Medications Generic Name Dose Route Start Last Admin Trade Name Freq PRN Reason Stop Dose Admin Dextrose 0 ml 04/08/18 16:49 Dextrose 50% Inj IV STAT PRN Hypoglycemia Protocol Protocol Dextrose 1,000 mls @ 0 mls/hr 04/08/18 16:49 Dextrose 5% In Water 1000 Ml IV .Q0M PRN Hypoglycemia Protocol Protocol Per Protocol Sodium Chloride 1,000 mls @ 200 mls/hr 04/09/18 15:05 Sodium Chloride 0.9% IV .Q5H LEONARDO Insulin Human NPH 12 units 04/09/18 22:00 Humulin N SC HS LEONARDO Insulin Human Regular 0 units 04/09/18 16:30 04/09/18 16:40 Humulin R Low SC Not Given ACHS LEONARDO Protocol Pantoprazole Sodium 40 mg 04/09/18 06:00 04/09/18 06:11 Protonix Ec Tab PO 40 mg 0600 LEONARDO Administration - Patient Studies Lab Studies: Lab Studies 04/09/18 04/09/18 04/09/18 Range/Units 16:37 16:10 11:50 WBC (4.5-11.0) 10^3/ul RBC (3.5-6.1) 10^6/uL Hgb (14.0-18.0) g/dL Hct (42.0-52.0) % MCV (80.0-105.0) fl MCH (25.0-35.0) pg MCHC (31.0-37.0) g/dl RDW (11.5-14.5) % Plt Count (120.0-450.0) 10^3/uL Gran % (50.0-68.0) % Lymph % (Auto) (22.0-35.0) % Stanton % (Auto) (1.0-6.0) % Eos % (Auto) (1.5-5.0) % Baso % (Auto) (0.0-3.0) % Gran # (1.4-6.5) Lymph # (Auto) (1.2-3.4) Stanton # (Auto) (0.1-0.6) Eos # (Auto) (0.0-0.7) Baso # (Auto) (0.0-2.0) K/mm3 pCO2 (35-45) mm/Hg pO2 (30-55) mm/Hg HCO3 (21-28) mmol/L ABG pH (7.35-7.45) ABG Total CO2 (22-28) mmol.L ABG O2 Saturation (95-98) % ABG O2 Content (15-23) ML/dl ABG Base Excess (-2.0-3.0) mmol/L ABG Hemoglobin (11.7-17.4) g/dL ABG Carboxyhemoglobin (0.5-1.5) % POC ABG HHb (Measured) (0-5) % ABG Methemoglobin (0.0-3.0) % ABG O2 Capacity (16-24) mL/dl VBG pH (7.32-7.43) VBG pCO2 (40-60) VBG HCO3 (21-28) mmol/l VBG O2 Sat (Calc) (40-65) % VBG Base Excess (0.0-2.0) mmol/L Hgb O2 Saturation (95.0-98.0) % FiO2 % Sodium 136 138 (132-148) mmol/L Potassium 4.3 3.6 (3.6-5.0) mmol/L Chloride 108 H 110 H (98-107) mmol/L Carbon Dioxide 14 L 13 L (21-33) mmol/L Anion Gap 18 19 (10-20) BUN < 2 L < 2 L (7-21) mg/dL Creatinine 0.5 L 0.5 L (0.8-1.5) mg/dl Est GFR ( Amer) > 60 > 60 Est GFR (Non-Af Amer) > 60 > 60 POC Glucose (mg/dL) 244 H (65-110) mg/dL Random Glucose 265 H 217 H (70-110) mg/dL Hemoglobin A1c (4.2-6.5) % Serum Osmolality (272-300) mosm/kg Calcium 8.6 8.2 L (8.4-10.5) mg/dL Phosphorus 2.0 L 2.3 L (2.5-4.5) mg/dL Magnesium 1.7 1.7 (1.7-2.2) mg/dL Total Bilirubin (0.2-1.3) mg/dL AST (17-59) U/L ALT (7-56) U/L Alkaline Phosphatase (38-126) U/L Troponin I ng/mL Total Protein (5.8-8.3) g/dL Albumin (3.0-4.8) g/dL Globulin gm/dL Albumin/Globulin Ratio (1.1-1.8) Triglycerides (35-160) mg/dL Cholesterol (130-200) mg/dL LDL Cholesterol Direct (0-129) mg/dL HDL Cholesterol (29-60) mg/dL TSH 3rd Generation (0.46-4.68) mIU/mL Salicylates (2.0-20.0) mg/dL Acetaminophen (10.0-20.0) ug/ml Alcohol, Quantitative (0-10) mg/dL B-Hydroxybutyrate (0.02-0.27) mM Hepatitis C Antibody (NEGATIVE) 04/09/18 04/09/1804/09/18 Range/Units 09:37 08:40 08:00 WBC (4.5-11.0) 10^3/ul RBC (3.5-6.1) 10^6/uL Hgb (14.0-18.0) g/dL Hct (42.0-52.0) % MCV (80.0-105.0) fl MCH (25.0-35.0) pg MCHC (31.0-37.0) g/dl RDW (11.5-14.5) % Plt Count (120.0-450.0) 10^3/uL Gran % (50.0-68.0) % Lymph % (Auto) (22.0-35.0) % Stanton % (Auto) (1.0-6.0) % Eos % (Auto) (1.5-5.0) % Baso % (Auto) (0.0-3.0) % Gran # (1.4-6.5) Lymph # (Auto) (1.2-3.4) Stanton # (Auto) (0.1-0.6) Eos # (Auto) (0.0-0.7) Baso # (Auto) (0.0-2.0) K/mm3 pCO2 23 L (35-45) mm/Hg pO2 118.0 H (30-55) mm/Hg HCO3 10.6 L (21-28) mmol/L ABG pH 7.27 L (7.35-7.45) ABG Total CO2 11.3 L (22-28) mmol.L ABG O2 Saturation 100.0 H (95-98) % ABG O2 Content 20.2 (15-23) ML/dl ABG Base Excess -14.2 L (-2.0-3.0) mmol/L ABG Hemoglobin 14.7 (11.7-17.4) g/dL ABG Carboxyhemoglobin 1.9 H (0.5-1.5) % POC ABG HHb (Measured) 0 (0-5) % ABG Methemoglobin 1.2 (0.0-3.0) % ABG O2 Capacity 20.2 (16-24) mL/dl VBG pH (7.32-7.43) VBG pCO2 (40-60) VBG HCO3 (21-28) mmol/l VBG O2 Sat (Calc) (40-65) % VBG Base Excess (0.0-2.0) mmol/L Hgb O2 Saturation 96.9 (95.0-98.0) % FiO2 21.0 % Sodium (132-148) mmol/L Potassium (3.6-5.0) mmol/L Chloride (98-107) mmol/L Carbon Dioxide (21-33) mmol/L Anion Gap (10-20) BUN (7-21) mg/dL Creatinine (0.8-1.5) mg/dl Est GFR ( Amer) Est GFR (Non-Af Amer) POC Glucose (mg/dL) 248 H 234 H (65-110) mg/dL Random Glucose (70-110) mg/dL Hemoglobin A1c (4.2-6.5) % Serum Osmolality (272-300) mosm/kg Calcium (8.4-10.5) mg/dL Phosphorus (2.5-4.5) mg/dL Magnesium (1.7-2.2) mg/dL Total Bilirubin (0.2-1.3) mg/dL AST (17-59) U/L ALT (7-56) U/L Alkaline Phosphatase (38-126) U/L Troponin I ng/mL Total Protein (5.8-8.3) g/dL Albumin (3.0-4.8) g/dL Globulin gm/dL Albumin/Globulin Ratio (1.1-1.8) Triglycerides (35-160) mg/dL Cholesterol (130-200) mg/dL LDL Cholesterol Direct (0-129) mg/dL HDL Cholesterol (29-60) mg/dL TSH 3rd Generation (0.46-4.68) mIU/mL Salicylates (2.0-20.0) mg/dL Acetaminophen (10.0-20.0) ug/ml Alcohol, Quantitative (0-10) mg/dL B-Hydroxybutyrate (0.02-0.27) mM Hepatitis C Antibody (NEGATIVE) 04/09/18 04/09/18 04/09/18 Range/Units 08:00 07:31 06:41 WBC (4.5-11.0) 10^3/ul RBC (3.5-6.1) 10^6/uL Hgb (14.0-18.0) g/dL Hct (42.0-52.0) % MCV (80.0-105.0) fl MCH (25.0-35.0) pg MCHC (31.0-37.0) g/dl RDW (11.5-14.5) % Plt Count (120.0-450.0) 10^3/uL Gran % (50.0-68.0) % Lymph % (Auto) (22.0-35.0) % Stanton % (Auto) (1.0-6.0) % Eos % (Auto) (1.5-5.0) % Baso % (Auto) (0.0-3.0) % Gran # (1.4-6.5) Lymph # (Auto) (1.2-3.4) Stanton # (Auto) (0.1-0.6) Eos # (Auto) (0.0-0.7) Baso # (Auto) (0.0-2.0) K/mm3 pCO2 (35-45) mm/Hg pO2 (30-55) mm/Hg HCO3 (21-28) mmol/L ABG pH (7.35-7.45) ABG Total CO2 (22-28) mmol.L ABG O2 Saturation (95-98) % ABG O2 Content (15-23) ML/dl ABG Base Excess (-2.0-3.0) mmol/L ABG Hemoglobin (11.7-17.4) g/dL ABG Carboxyhemoglobin (0.5-1.5) % POC ABG HHb (Measured) (0-5) % ABG Methemoglobin (0.0-3.0) % ABG O2 Capacity (16-24) mL/dl VBG pH (7.32-7.43) VBG pCO2 (40-60) VBG HCO3 (21-28) mmol/l VBG O2 Sat (Calc) (40-65) % VBG Base Excess (0.0-2.0) mmol/L Hgb O2 Saturation (95.0-98.0) % FiO2 % Sodium 137 (132-148) mmol/L Potassium 3.3 L (3.6-5.0) mmol/L Chloride 112 H (98-107) mmol/L Carbon Dioxide 12 L (21-33) mmol/L Anion Gap 16 (10-20) BUN 2 L (7-21) mg/dL Creatinine 0.5 L (0.8-1.5) mg/dl Est GFR ( Amer) > 60 Est GFR (Non-Af Amer) > 60 POC Glucose (mg/dL) 247 H 227 H (65-110) mg/dL Random Glucose 236 H (70-110) mg/dL Hemoglobin A1c (4.2-6.5) % Serum Osmolality (272-300) mosm/kg Calcium 8.1 L (8.4-10.5) mg/dL Phosphorus 1.6 L (2.5-4.5) mg/dL Magnesium 1.8 (1.7-2.2) mg/dL Total Bilirubin (0.2-1.3) mg/dL AST (17-59) U/L ALT (7-56) U/L Alkaline Phosphatase (38-126) U/L Troponin I ng/mL Total Protein (5.8-8.3) g/dL Albumin (3.0-4.8) g/dL Globulin gm/dL Albumin/Globulin Ratio (1.1-1.8) Triglycerides (35-160) mg/dL Cholesterol (130-200) mg/dL LDL Cholesterol Direct (0-129) mg/dL HDL Cholesterol (29-60) mg/dL TSH 3rd Generation (0.46-4.68) mIU/mL Salicylates (2.0-20.0) mg/dL Acetaminophen (10.0-20.0) ug/ml Alcohol, Quantitative (0-10) mg/dL B-Hydroxybutyrate (0.02-0.27) mM Hepatitis C Antibody (NEGATIVE) 04/09/18 04/09/18 04/09/18 Range/Units 05:52 05:30 04:28 WBC (4.5-11.0) 10^3/ul RBC (3.5-6.1) 10^6/uL Hgb (14.0-18.0) g/dL Hct (42.0-52.0) % MCV (80.0-105.0) fl MCH (25.0-35.0) pg MCHC (31.0-37.0) g/dl RDW (11.5-14.5) % Plt Count (120.0-450.0) 10^3/uL Gran % (50.0-68.0) % Lymph % (Auto) (22.0-35.0) % Stanton % (Auto) (1.0-6.0) % Eos % (Auto) (1.5-5.0) % Baso % (Auto) (0.0-3.0) % Gran # (1.4-6.5) Lymph # (Auto) (1.2-3.4) Stanton # (Auto) (0.1-0.6) Eos # (Auto) (0.0-0.7) Baso # (Auto) (0.0-2.0) K/mm3 pCO2 (35-45) mm/Hg pO2 (30-55) mm/Hg HCO3 (21-28) mmol/L ABG pH (7.35-7.45) ABG Total CO2 (22-28) mmol.L ABG O2 Saturation (95-98) % ABG O2 Content (15-23) ML/dl ABG Base Excess (-2.0-3.0) mmol/L ABG Hemoglobin (11.7-17.4) g/dL ABG Carboxyhemoglobin (0.5-1.5) % POC ABG HHb (Measured) (0-5) % ABG Methemoglobin (0.0-3.0) % ABG O2 Capacity (16-24) mL/dl VBG pH (7.32-7.43) VBG pCO2 (40-60) VBG HCO3 (21-28) mmol/l VBG O2 Sat (Calc) (40-65) % VBG Base Excess (0.0-2.0) mmol/L Hgb O2 Saturation (95.0-98.0) % FiO2 % Sodium (132-148) mmol/L Potassium (3.6-5.0) mmol/L Chloride (98-107) mmol/L Carbon Dioxide (21-33) mmol/L Anion Gap (10-20) BUN (7-21) mg/dL Creatinine (0.8-1.5) mg/dl Est GFR ( Amer) Est GFR (Non-Af Amer) POC Glucose (mg/dL) 256 H 236 H (65-110) mg/dL Random Glucose (70-110) mg/dL Hemoglobin A1c (4.2-6.5) % Serum Osmolality (272-300) mosm/kg Calcium (8.4-10.5) mg/dL Phosphorus (2.5-4.5) mg/dL Magnesium (1.7-2.2) mg/dL Total Bilirubin (0.2-1.3) mg/dL AST (17-59) U/L ALT (7-56) U/L Alkaline Phosphatase (38-126) U/L Troponin I ng/mL Total Protein (5.8-8.3) g/dL Albumin (3.0-4.8) g/dL Globulin gm/dL Albumin/Globulin Ratio (1.1-1.8) Triglycerides 174 H (35-160) mg/dL Cholesterol 267 H (130-200) mg/dL LDL Cholesterol Direct 206 H (0-129) mg/dL HDL Cholesterol 36 (29-60) mg/dL TSH 3rd Generation (0.46-4.68) mIU/mL Salicylates (2.0-20.0) mg/dL Acetaminophen (10.0-20.0) ug/ml Alcohol, Quantitative (0-10) mg/dL B-Hydroxybutyrate (0.02-0.27) mM Hepatitis C Antibody (NEGATIVE) 04/09/18 04/09/18 04/09/18 Range/Units 04:12 04:12 03:31 WBC 6.8 D (4.5-11.0) 10^3/ul RBC 5.55 (3.5-6.1) 10^6/uL Hgb 14.8 D (14.0-18.0) g/dL Hct 42.0 (42.0-52.0) % MCV 75.7 L (80.0-105.0) fl MCH 26.7 (25.0-35.0) pg MCHC 35.2 (31.0-37.0) g/dl RDW 15.2 H (11.5-14.5) % Plt Count 120 (120.0-450.0) 10^3/uL Gran % 57.0 (50.0-68.0) % Lymph % (Auto) 27.7 (22.0-35.0) % Stanton % (Auto) 14.1 H (1.0-6.0) % Eos % (Auto) 0.9 L (1.5-5.0) % Baso % (Auto) 0.3 (0.0-3.0) % Gran # 3.90 (1.4-6.5) Lymph # (Auto) 1.9 (1.2-3.4) Stanton # (Auto) 1.0 H (0.1-0.6) Eos # (Auto) 0.1 (0.0-0.7) Baso # (Auto) 0.02 (0.0-2.0) K/mm3 pCO2 (35-45) mm/Hg pO2 (30-55) mm/Hg HCO3 (21-28) mmol/L ABG pH (7.35-7.45) ABG Total CO2 (22-28) mmol.L ABG O2 Saturation (95-98) % ABG O2 Content (15-23) ML/dl ABG Base Excess (-2.0-3.0) mmol/L ABG Hemoglobin (11.7-17.4) g/dL ABG Carboxyhemoglobin (0.5-1.5) % POC ABG HHb (Measured) (0-5) % ABG Methemoglobin (0.0-3.0) % ABG O2 Capacity (16-24) mL/dl VBG pH (7.32-7.43) VBG pCO2 (40-60) VBG HCO3 (21-28) mmol/l VBG O2 Sat (Calc) (40-65) % VBG Base Excess (0.0-2.0) mmol/L Hgb O2 Saturation (95.0-98.0) % FiO2 % Sodium 138 (132-148) mmol/L Potassium 3.3 L (3.6-5.0) mmol/L Chloride 113 H (98-107) mmol/L Carbon Dioxide 10 L (21-33) mmol/L Anion Gap 18 (10-20) BUN 3 L (7-21) mg/dL Creatinine 0.5 L (0.8-1.5) mg/dl Est GFR ( Amer) > 60 Est GFR (Non-Af Amer) > 60 POC Glucose (mg/dL) 226 H (65-110) mg/dL Random Glucose 246 H (70-110) mg/dL Hemoglobin A1c (4.2-6.5) % Serum Osmolality (272-300) mosm/kg Calcium 8.3 L (8.4-10.5) mg/dL Phosphorus 1.5 L (2.5-4.5) mg/dL Magnesium 1.9 (1.7-2.2) mg/dL Total Bilirubin (0.2-1.3) mg/dL AST (17-59) U/L ALT (7-56) U/L Alkaline Phosphatase (38-126) U/L Troponin I < 0.01 ng/mL Total Protein (5.8-8.3) g/dL Albumin (3.0-4.8) g/dL Globulin gm/dL Albumin/Globulin Ratio (1.1-1.8) Triglycerides (35-160) mg/dL Cholesterol (130-200) mg/dL LDL Cholesterol Direct (0-129) mg/dL HDL Cholesterol (29-60) mg/dL TSH 3rd Generation (0.46-4.68) mIU/mL Salicylates (2.0-20.0) mg/dL Acetaminophen (10.0-20.0) ug/ml Alcohol, Quantitative (0-10) mg/dL B-Hydroxybutyrate (0.02-0.27) mM Hepatitis C Antibody (NEGATIVE) 04/09/18 04/09/18 04/09/18 Range/Units 02:25 01:36 00:28 WBC (4.5-11.0) 10^3/ul RBC (3.5-6.1) 10^6/uL Hgb (14.0-18.0) g/dL Hct (42.0-52.0) % MCV (80.0-105.0) fl MCH (25.0-35.0) pg MCHC (31.0-37.0) g/dl RDW (11.5-14.5) % Plt Count (120.0-450.0) 10^3/uL Gran % (50.0-68.0) % Lymph % (Auto) (22.0-35.0) % Stanton % (Auto) (1.0-6.0) % Eos % (Auto) (1.5-5.0) % Baso % (Auto) (0.0-3.0) % Gran # (1.4-6.5) Lymph # (Auto) (1.2-3.4) Stanton # (Auto) (0.1-0.6) Eos # (Auto) (0.0-0.7) Baso # (Auto) (0.0-2.0) K/mm3 pCO2 (35-45) mm/Hg pO2 (30-55) mm/Hg HCO3 (21-28) mmol/L ABG pH (7.35-7.45) ABG Total CO2 (22-28) mmol.L ABG O2 Saturation (95-98) % ABG O2 Content (15-23) ML/dl ABG Base Excess (-2.0-3.0) mmol/L ABG Hemoglobin (11.7-17.4) g/dL ABG Carboxyhemoglobin (0.5-1.5) % POC ABG HHb (Measured) (0-5) % ABG Methemoglobin (0.0-3.0) % ABG O2 Capacity (16-24) mL/dl VBG pH (7.32-7.43) VBG pCO2 (40-60) VBG HCO3 (21-28) mmol/l VBG O2 Sat (Calc) (40-65) % VBG Base Excess (0.0-2.0) mmol/L Hgb O2 Saturation (95.0-98.0) % FiO2 % Sodium 139 (132-148) mmol/L Potassium 3.6 (3.6-5.0) mmol/L Chloride 112 H (98-107) mmol/L Carbon Dioxide 11 L (21-33) mmol/L Anion Gap 19 (10-20) BUN 4 L (7-21) mg/dL Creatinine 0.6 L (0.8-1.5) mg/dl Est GFR ( Amer) > 60 Est GFR (Non-Af Amer) > 60 POC Glucose (mg/dL) 217 H 205 H (65-110) mg/dL Random Glucose 205 H (70-110) mg/dL Hemoglobin A1c (4.2-6.5) % Serum Osmolality (272-300) mosm/kg Calcium 8.3 L (8.4-10.5) mg/dL Phosphorus 0.8 L* (2.5-4.5) mg/dL Magnesium 2.0 (1.7-2.2) mg/dL Total Bilirubin (0.2-1.3) mg/dL AST (17-59) U/L ALT (7-56) U/L Alkaline Phosphatase (38-126) U/L Troponin I ng/mL Total Protein (5.8-8.3) g/dL Albumin (3.0-4.8) g/dL Globulin gm/dL Albumin/Globulin Ratio (1.1-1.8) Triglycerides (35-160) mg/dL Cholesterol (130-200) mg/dL LDL Cholesterol Direct (0-129) mg/dL HDL Cholesterol (29-60) mg/dL TSH 3rd Generation (0.46-4.68) mIU/mL Salicylates (2.0-20.0) mg/dL Acetaminophen (10.0-20.0) ug/ml Alcohol, Quantitative (0-10) mg/dL B-Hydroxybutyrate (0.02-0.27) mM Hepatitis C Antibody (NEGATIVE) 04/08/18 04/08/18 04/08/18 Range/Units 21:34 20:40 20:30 WBC (4.5-11.0) 10^3/ul RBC (3.5-6.1) 10^6/uL Hgb (14.0-18.0) g/dL Hct (42.0-52.0) % MCV (80.0-105.0) fl MCH (25.0-35.0) pg MCHC (31.0-37.0) g/dl RDW (11.5-14.5) % Plt Count (120.0-450.0) 10^3/uL Gran % (50.0-68.0) % Lymph % (Auto) (22.0-35.0) % Stanton % (Auto) (1.0-6.0) % Eos % (Auto) (1.5-5.0) % Baso % (Auto) (0.0-3.0) % Gran # (1.4-6.5) Lymph # (Auto) (1.2-3.4) Stanton # (Auto) (0.1-0.6) Eos # (Auto) (0.0-0.7) Baso # (Auto) (0.0-2.0) K/mm3 pCO2 (35-45) mm/Hg pO2 24 L (30-55) mm/Hg HCO3 (21-28) mmol/L ABG pH (7.35-7.45) ABG Total CO2 (22-28) mmol.L ABG O2 Saturation (95-98) % ABG O2 Content (15-23) ML/dl ABG Base Excess (-2.0-3.0) mmol/L ABG Hemoglobin (11.7-17.4) g/dL ABG Carboxyhemoglobin (0.5-1.5) % POC ABG HHb (Measured) (0-5) % ABG Methemoglobin (0.0-3.0) % ABG O2 Capacity (16-24) mL/dl VBG pH 7.14 L* (7.32-7.43) VBG pCO2 31.0 L (40-60) VBG HCO3 10.6 L (21-28) mmol/l VBG O2 Sat (Calc) 55.3 (40-65) % VBG Base Excess -17.2 L (0.0-2.0) mmol/L Hgb O2 Saturation (95.0-98.0) % FiO2 % Sodium (132-148) mmol/L Potassium (3.6-5.0) mmol/L Chloride (98-107) mmol/L Carbon Dioxide (21-33) mmol/L Anion Gap (10-20) BUN (7-21) mg/dL Creatinine (0.8-1.5) mg/dl Est GFR ( Amer) Est GFR (Non-Af Amer) POC Glucose (mg/dL) 243 H 207 H (65-110) mg/dL Random Glucose (70-110) mg/dL Hemoglobin A1c (4.2-6.5) % Serum Osmolality (272-300) mosm/kg Calcium (8.4-10.5) mg/dL Phosphorus (2.5-4.5) mg/dL Magnesium (1.7-2.2) mg/dL Total Bilirubin (0.2-1.3) mg/dL AST (17-59) U/L ALT (7-56) U/L Alkaline Phosphatase (38-126) U/L Troponin I ng/mL Total Protein (5.8-8.3) g/dL Albumin (3.0-4.8) g/dL Globulin gm/dL Albumin/Globulin Ratio (1.1-1.8) Triglycerides (35-160) mg/dL Cholesterol (130-200) mg/dL LDL Cholesterol Direct (0-129) mg/dL HDL Cholesterol (29-60) mg/dL TSH 3rd Generation (0.46-4.68) mIU/mL Salicylates (2.0-20.0) mg/dL Acetaminophen (10.0-20.0) ug/ml Alcohol, Quantitative (0-10) mg/dL B-Hydroxybutyrate (0.02-0.27) mM Hepatitis C Antibody (NEGATIVE) 04/08/18 04/08/18 04/08/18 Range/Units 20:15 20:15 19:11 WBC (4.5-11.0) 10^3/ul RBC (3.5-6.1) 10^6/uL Hgb (14.0-18.0) g/dL Hct (42.0-52.0) % MCV (80.0-105.0) fl MCH (25.0-35.0) pg MCHC (31.0-37.0) g/dl RDW (11.5-14.5) % Plt Count (120.0-450.0) 10^3/uL Gran % (50.0-68.0) % Lymph % (Auto) (22.0-35.0) % Stanton % (Auto) (1.0-6.0) % Eos % (Auto) (1.5-5.0) % Baso % (Auto) (0.0-3.0) % Gran # (1.4-6.5) Lymph # (Auto) (1.2-3.4) Stanton # (Auto) (0.1-0.6) Eos # (Auto) (0.0-0.7) Baso # (Auto) (0.0-2.0) K/mm3 pCO2 (35-45) mm/Hg pO2 (30-55) mm/Hg HCO3 (21-28) mmol/L ABG pH (7.35-7.45) ABG Total CO2 (22-28) mmol.L ABG O2 Saturation (95-98) % ABG O2 Content (15-23) ML/dl ABG Base Excess (-2.0-3.0) mmol/L ABG Hemoglobin (11.7-17.4) g/dL ABG Carboxyhemoglobin (0.5-1.5) % POC ABG HHb (Measured) (0-5) % ABG Methemoglobin (0.0-3.0) % ABG O2 Capacity (16-24) mL/dl VBG pH (7.32-7.43) VBG pCO2 (40-60) VBG HCO3 (21-28) mmol/l VBG O2 Sat (Calc) (40-65) % VBG Base Excess (0.0-2.0) mmol/L Hgb O2 Saturation (95.0-98.0) % FiO2 % Sodium 140 (132-148) mmol/L Potassium 4.1 (3.6-5.0) mmol/L Chloride 112 H (98-107) mmol/L Carbon Dioxide 10 L D (21-33) mmol/L Anion Gap 22 H (10-20) BUN 4 L (7-21) mg/dL Creatinine 0.6 L (0.8-1.5) mg/dl Est GFR ( Amer) > 60 Est GFR (Non-Af Amer) > 60 POC Glucose (mg/dL) 220 H (65-110) mg/dL Random Glucose 231 H (70-110) mg/dL Hemoglobin A1c (4.2-6.5) % Serum Osmolality (272-300) mosm/kg Calcium 8.4 (8.4-10.5) mg/dL Phosphorus 0.8 L* (2.5-4.5) mg/dL Magnesium 1.9 (1.7-2.2) mg/dL Total Bilirubin (0.2-1.3) mg/dL AST (17-59) U/L ALT (7-56) U/L Alkaline Phosphatase (38-126) U/L Troponin I < 0.01 ng/mL Total Protein (5.8-8.3) g/dL Albumin (3.0-4.8) g/dL Globulin gm/dL Albumin/Globulin Ratio (1.1-1.8) Triglycerides (35-160) mg/dL Cholesterol (130-200) mg/dL LDL Cholesterol Direct (0-129) mg/dL HDL Cholesterol (29-60) mg/dL TSH 3rd Generation (0.46-4.68) mIU/mL Salicylates (2.0-20.0) mg/dL Acetaminophen (10.0-20.0) ug/ml Alcohol, Quantitative (0-10) mg/dL B-Hydroxybutyrate (0.02-0.27) mM Hepatitis C Antibody Negative (NEGATIVE) 04/08/18 04/08/18 04/08/18 Range/Units 17:47 16:50 16:50 WBC (4.5-11.0) 10^3/ul RBC (3.5-6.1) 10^6/uL Hgb (14.0-18.0) g/dL Hct (42.0-52.0) % MCV (80.0-105.0) fl MCH (25.0-35.0) pg MCHC (31.0-37.0) g/dl RDW (11.5-14.5) % Plt Count (120.0-450.0) 10^3/uL Gran % (50.0-68.0) % Lymph % (Auto) (22.0-35.0) % Stanton % (Auto) (1.0-6.0) % Eos % (Auto) (1.5-5.0) % Baso % (Auto) (0.0-3.0) % Gran # (1.4-6.5) Lymph # (Auto) (1.2-3.4) Stanton # (Auto) (0.1-0.6) Eos # (Auto) (0.0-0.7) Baso # (Auto) (0.0-2.0) K/mm3 pCO2 (35-45) mm/Hg pO2 (30-55) mm/Hg HCO3 (21-28) mmol/L ABG pH (7.35-7.45) ABG Total CO2 (22-28) mmol.L ABG O2 Saturation (95-98) % ABG O2 Content (15-23) ML/dl ABG Base Excess (-2.0-3.0) mmol/L ABG Hemoglobin (11.7-17.4) g/dL ABG Carboxyhemoglobin (0.5-1.5) % POC ABG HHb (Measured) (0-5) % ABG Methemoglobin (0.0-3.0) % ABG O2 Capacity (16-24) mL/dl VBG pH (7.32-7.43) VBG pCO2 (40-60) VBG HCO3 (21-28) mmol/l VBG O2 Sat (Calc) (40-65) % VBG Base Excess (0.0-2.0) mmol/L Hgb O2 Saturation (95.0-98.0) % FiO2 % Sodium 138 (132-148) mmol/L Potassium 4.0 (3.6-5.0) mmol/L Chloride 112 H (98-107) mmol/L Carbon Dioxide 7 L (21-33) mmol/L Anion Gap 24 H (10-20) BUN 5 L (7-21) mg/dL Creatinine 0.5 L (0.8-1.5) mg/dl Est GFR ( Amer) > 60 Est GFR (Non-Af Amer) > 60 POC Glucose (mg/dL) 165 H (65-110) mg/dL Random Glucose 232 H (70-110) mg/dL Hemoglobin A1c (4.2-6.5) % Serum Osmolality (272-300) mosm/kg Calcium 8.2 L (8.4-10.5) mg/dL Phosphorus (2.5-4.5) mg/dL Magnesium (1.7-2.2) mg/dL Total Bilirubin 0.9 (0.2-1.3) mg/dL AST 88 H (17-59) U/L ALT 134 H (7-56) U/L Alkaline Phosphatase 167 H (38-126) U/L Troponin I ng/mL Total Protein 7.0 (5.8-8.3) g/dL Albumin 3.7 (3.0-4.8) g/dL Globulin 3.3 gm/dL Albumin/Globulin Ratio 1.1 (1.1-1.8) Triglycerides (35-160) mg/dL Cholesterol (130-200) mg/dL LDL Cholesterol Direct (0-129) mg/dL HDL Cholesterol (29-60) mg/dL TSH 3rd Generation (0.46-4.68) mIU/mL Salicylates < 1 L (2.0-20.0) mg/dL Acetaminophen < 10.0 L (10.0-20.0) ug/ml Alcohol, Quantitative (0-10) mg/dL B-Hydroxybutyrate 7.02 H (0.02-0.27) mM Hepatitis C Antibody (NEGATIVE) 04/08/18 04/08/18 Range/Units 16:50 16:50 WBC (4.5-11.0) 10^3/ul RBC (3.5-6.1) 10^6/uL Hgb (14.0-18.0) g/dL Hct (42.0-52.0) % MCV (80.0-105.0) fl MCH (25.0-35.0) pg MCHC (31.0-37.0) g/dl RDW (11.5-14.5) % Plt Count (120.0-450.0) 10^3/uL Gran % (50.0-68.0) % Lymph % (Auto) (22.0-35.0) % Stanton % (Auto) (1.0-6.0) % Eos % (Auto) (1.5-5.0) % Baso % (Auto) (0.0-3.0) % Gran # (1.4-6.5) Lymph # (Auto) (1.2-3.4) Stanton # (Auto) (0.1-0.6) Eos # (Auto) (0.0-0.7) Baso # (Auto) (0.0-2.0) K/mm3 pCO2 (35-45) mm/Hg pO2 (30-55) mm/Hg HCO3 (21-28) mmol/L ABG pH (7.35-7.45) ABG Total CO2 (22-28) mmol.L ABG O2 Saturation (95-98) % ABG O2 Content (15-23) ML/dl ABG Base Excess (-2.0-3.0) mmol/L ABG Hemoglobin (11.7-17.4) g/dL ABG Carboxyhemoglobin (0.5-1.5) % POC ABG HHb (Measured) (0-5) % ABG Methemoglobin (0.0-3.0) % ABG O2 Capacity (16-24) mL/dl VBG pH (7.32-7.43) VBG pCO2 (40-60) VBG HCO3 (21-28) mmol/l VBG O2 Sat (Calc) (40-65) % VBG Base Excess (0.0-2.0) mmol/L Hgb O2 Saturation (95.0-98.0) % FiO2 % Sodium (132-148) mmol/L Potassium (3.6-5.0) mmol/L Chloride (98-107) mmol/L Carbon Dioxide (21-33) mmol/L Anion Gap (10-20) BUN (7-21) mg/dL Creatinine (0.8-1.5) mg/dl Est GFR ( Amer) Est GFR (Non-Af Amer) POC Glucose (mg/dL) (65-110) mg/dL Random Glucose (70-110) mg/dL Hemoglobin A1c 13.9 H (4.2-6.5) % Serum Osmolality 299 (272-300) mosm/kg Calcium (8.4-10.5) mg/dL Phosphorus (2.5-4.5) mg/dL Magnesium (1.7-2.2) mg/dL Total Bilirubin (0.2-1.3) mg/dL AST (17-59) U/L ALT (7-56) U/L Alkaline Phosphatase (38-126) U/L Troponin I ng/mL Total Protein (5.8-8.3) g/dL Albumin (3.0-4.8) g/dL Globulin gm/dL Albumin/Globulin Ratio (1.1-1.8) Triglycerides (35-160) mg/dL Cholesterol (130-200) mg/dL LDL Cholesterol Direct (0-129) mg/dL HDL Cholesterol (29-60) mg/dL TSH 3rd Generation 1.90 (0.46-4.68) mIU/mL Salicylates (2.0-20.0) mg/dL Acetaminophen (10.0-20.0) ug/ml Alcohol, Quantitative < 10 (0-10) mg/dL B-Hydroxybutyrate (0.02-0.27) mM Hepatitis C Antibody (NEGATIVE) Laboratory Results - last 24 hr 04/08/18 04/08/18 04/08/18 16:50 16:50 16:50 WBC RBC Hgb Hct MCV MCH MCHC RDW Plt Count Gran % Lymph % (Auto) Stanton % (Auto) Eos % (Auto) Baso % (Auto) Gran # Lymph # (Auto) Stanton # (Auto) Eos # (Auto) Baso # (Auto) pCO2 pO2 HCO3 ABG pH ABG Total CO2 ABG O2 Saturation ABG O2 Content ABG Base Excess ABG Hemoglobin ABG Carboxyhemoglobin POC ABG HHb (Measured) ABG Methemoglobin ABG O2 Capacity VBG pH VBG pCO2 VBG HCO3 VBG O2 Sat (Calc) VBG Base Excess Hgb O2 Saturation FiO2 Sodium Potassium Chloride Carbon Dioxide Anion Gap BUN Creatinine Est GFR ( Amer) Est GFR (Non-Af Amer) POC Glucose (mg/dL) Random Glucose Hemoglobin A1c 13.9 H Serum Osmolality 299 Calcium Phosphorus Magnesium Total Bilirubin AST ALT Alkaline Phosphatase Troponin I Total Protein Albumin Globulin Albumin/Globulin Ratio Triglycerides Cholesterol LDL Cholesterol Direct HDL Cholesterol TSH 3rd Generation 1.90 Salicylates < 1 L Acetaminophen < 10.0 L Alcohol, Quantitative < 10 B-Hydroxybutyrate Hepatitis C Antibody 04/08/18 04/08/18 04/08/18 16:50 17:47 19:11 WBC RBC Hgb Hct MCV MCH MCHC RDW Plt Count Gran % Lymph % (Auto) Stanton % (Auto) Eos % (Auto) Baso % (Auto) Gran # Lymph # (Auto) Stanton # (Auto) Eos # (Auto) Baso # (Auto) pCO2 pO2 HCO3 ABG pH ABG Total CO2 ABG O2 Saturation ABG O2 Content ABG Base Excess ABG Hemoglobin ABG Carboxyhemoglobin POC ABG HHb (Measured) ABG Methemoglobin ABG O2 Capacity VBG pH VBG pCO2 VBG HCO3 VBG O2 Sat (Calc) VBG Base Excess Hgb O2 Saturation FiO2 Sodium 138 Potassium 4.0 Chloride 112 H Carbon Dioxide 7 L Anion Gap 24 H BUN 5 L Creatinine 0.5 L Est GFR ( Amer) > 60 Est GFR (Non-Af Amer) > 60 POC Glucose (mg/dL) 165 H 220 H Random Glucose 232 H Hemoglobin A1c Serum Osmolality Calcium 8.2 L Phosphorus Magnesium Total Bilirubin 0.9 AST 88 H ALT 134 H Alkaline Phosphatase 167 H Troponin I Total Protein 7.0 Albumin 3.7 Globulin 3.3 Albumin/Globulin Ratio 1.1 Triglycerides Cholesterol LDL Cholesterol Direct HDL Cholesterol TSH 3rd Generation Salicylates Acetaminophen Alcohol, Quantitative B-Hydroxybutyrate 7.02 H Hepatitis C Antibody 04/08/18 04/08/18 04/08/18 20:15 20:15 20:30 WBC RBC Hgb Hct MCV MCH MCHC RDW Plt Count Gran % Lymph % (Auto) Stanton % (Auto) Eos % (Auto) Baso % (Auto) Gran # Lymph # (Auto) Stanton # (Auto) Eos # (Auto) Baso # (Auto) pCO2 pO2 24 L HCO3 ABG pH ABG Total CO2 ABG O2 Saturation ABG O2 Content ABG Base Excess ABG Hemoglobin ABG Carboxyhemoglobin POC ABG HHb (Measured) ABG Methemoglobin ABG O2 Capacity VBG pH 7.14 L* VBG pCO2 31.0 L VBG HCO3 10.6 L VBG O2 Sat (Calc) 55.3 VBG Base Excess -17.2 L Hgb O2 Saturation FiO2 Sodium 140 Potassium 4.1 Chloride 112 H Carbon Dioxide 10 L D Anion Gap 22 H BUN 4 L Creatinine 0.6 L Est GFR ( Amer) > 60 Est GFR (Non-Af Amer) > 60 POC Glucose (mg/dL) Random Glucose 231 H Hemoglobin A1c Serum Osmolality Calcium 8.4 Phosphorus 0.8 L* Magnesium 1.9 Total Bilirubin AST ALT Alkaline Phosphatase Troponin I < 0.01 Total Protein Albumin Globulin Albumin/Globulin Ratio Triglycerides Cholesterol LDL Cholesterol Direct HDL Cholesterol TSH 3rd Generation Salicylates Acetaminophen Alcohol, Quantitative B-Hydroxybutyrate Hepatitis C Antibody Negative 04/08/18 04/08/18 04/09/18 20:40 21:34 00:28 WBC RBC Hgb Hct MCV MCH MCHC RDW Plt Count Gran % Lymph % (Auto) Stanton % (Auto) Eos % (Auto) Baso % (Auto) Gran # Lymph # (Auto) Stanton # (Auto) Eos # (Auto) Baso # (Auto) pCO2 pO2 HCO3 ABG pH ABG Total CO2 ABG O2 Saturation ABG O2 Content ABG Base Excess ABG Hemoglobin ABG Carboxyhemoglobin POC ABG HHb (Measured) ABG Methemoglobin ABG O2 Capacity VBG pH VBG pCO2 VBG HCO3 VBG O2 Sat (Calc) VBG Base Excess Hgb O2 Saturation FiO2 Sodium 139 Potassium 3.6 Chloride 112 H Carbon Dioxide 11 L Anion Gap 19 BUN 4 L Creatinine 0.6 L Est GFR ( Amer) > 60 Est GFR (Non-Af Amer) > 60 POC Glucose (mg/dL) 207 H 243 H Random Glucose 205 H Hemoglobin A1c Serum Osmolality Calcium 8.3 L Phosphorus 0.8 L* Magnesium 2.0 Total Bilirubin AST ALT Alkaline Phosphatase Troponin I Total Protein Albumin Globulin Albumin/Globulin Ratio Triglycerides Cholesterol LDL Cholesterol Direct HDL Cholesterol TSH 3rd Generation Salicylates Acetaminophen Alcohol, Quantitative B-Hydroxybutyrate Hepatitis C Antibody 04/09/18 04/09/18 04/09/18 01:36 02:25 03:31 WBC RBC Hgb Hct MCV MCH MCHC RDW Plt Count Gran % Lymph % (Auto) Stanton % (Auto) Eos % (Auto) Baso % (Auto) Gran # Lymph # (Auto) Stanton # (Auto) Eos # (Auto) Baso # (Auto) pCO2 pO2 HCO3 ABG pH ABG Total CO2 ABG O2 Saturation ABG O2 Content ABG Base Excess ABG Hemoglobin ABG Carboxyhemoglobin POC ABG HHb (Measured) ABG Methemoglobin ABG O2 Capacity VBG pH VBG pCO2 VBG HCO3 VBG O2 Sat (Calc) VBG Base Excess Hgb O2 Saturation FiO2 Sodium Potassium Chloride Carbon Dioxide Anion Gap BUN Creatinine Est GFR ( Amer) Est GFR (Non-Af Amer) POC Glucose (mg/dL) 205 H 217 H 226 H Random Glucose Hemoglobin A1c Serum Osmolality Calcium Phosphorus Magnesium Total Bilirubin AST ALT Alkaline Phosphatase Troponin I Total Protein Albumin Globulin Albumin/Globulin Ratio Triglycerides Cholesterol LDL Cholesterol Direct HDL Cholesterol TSH 3rd Generation Salicylates Acetaminophen Alcohol, Quantitative B-Hydroxybutyrate Hepatitis C Antibody 04/09/18 04/09/18 04/09/18 04:12 04:12 04:28 WBC 6.8 D RBC 5.55 Hgb 14.8 D Hct 42.0 MCV 75.7 L MCH 26.7 MCHC 35.2 RDW 15.2 H Plt Count 120 Gran % 57.0 Lymph % (Auto) 27.7 Stanton % (Auto) 14.1 H Eos % (Auto) 0.9 L Baso % (Auto) 0.3 Gran # 3.90 Lymph # (Auto) 1.9 Stanton # (Auto) 1.0 H Eos # (Auto) 0.1 Baso # (Auto) 0.02 pCO2 pO2 HCO3 ABG pH ABG Total CO2 ABG O2 Saturation ABG O2 Content ABG Base Excess ABG Hemoglobin ABG Carboxyhemoglobin POC ABG HHb (Measured) ABG Methemoglobin ABG O2 Capacity VBG pH VBG pCO2 VBG HCO3 VBG O2 Sat (Calc) VBG Base Excess Hgb O2 Saturation FiO2 Sodium 138 Potassium 3.3 L Chloride 113 H Carbon Dioxide 10 L Anion Gap 18 BUN 3 L Creatinine 0.5 L Est GFR ( Amer) > 60 Est GFR (Non-Af Amer) > 60 POC Glucose (mg/dL) 236 H Random Glucose 246 H Hemoglobin A1c Serum Osmolality Calcium 8.3 L Phosphorus 1.5 L Magnesium 1.9 Total Bilirubin AST ALT Alkaline Phosphatase Troponin I < 0.01 Total Protein Albumin Globulin Albumin/Globulin Ratio Triglycerides Cholesterol LDL Cholesterol Direct HDL Cholesterol TSH 3rd Generation Salicylates Acetaminophen Alcohol, Quantitative B-Hydroxybutyrate Hepatitis C Antibody 04/09/18 04/09/18 04/09/18 05:30 05:52 06:41 WBC RBC Hgb Hct MCV MCH MCHC RDW Plt Count Gran % Lymph % (Auto) Stanton % (Auto) Eos % (Auto) Baso % (Auto) Gran # Lymph # (Auto) Stanton # (Auto) Eos # (Auto) Baso # (Auto) pCO2 pO2 HCO3 ABG pH ABG Total CO2 ABG O2 Saturation ABG O2 Content ABG Base Excess ABG Hemoglobin ABG Carboxyhemoglobin POC ABG HHb (Measured) ABG Methemoglobin ABG O2 Capacity VBG pH VBG pCO2 VBG HCO3 VBG O2 Sat (Calc) VBG Base Excess Hgb O2 Saturation FiO2 Sodium Potassium Chloride Carbon Dioxide Anion Gap BUN Creatinine Est GFR ( Amer) Est GFR (Non-Af Amer) POC Glucose (mg/dL) 256 H 227 H Random Glucose Hemoglobin A1c Serum Osmolality Calcium Phosphorus Magnesium Total Bilirubin AST ALT Alkaline Phosphatase Troponin I Total Protein Albumin Globulin Albumin/Globulin Ratio Triglycerides 174 H Cholesterol 267 H LDL Cholesterol Direct 206 H HDL Cholesterol 36 TSH 3rd Generation Salicylates Acetaminophen Alcohol, Quantitative B-Hydroxybutyrate Hepatitis C Antibody 04/09/18 04/09/18 04/09/18 07:31 08:00 08:00 WBC RBC Hgb Hct MCV MCH MCHC RDW Plt Count Gran % Lymph % (Auto) Stanton % (Auto) Eos % (Auto) Baso % (Auto) Gran # Lymph # (Auto) Stanton # (Auto) Eos # (Auto) Baso # (Auto) pCO2 23 L pO2 118.0 H HCO3 10.6 L ABG pH 7.27 L ABG Total CO2 11.3 L ABG O2 Saturation 100.0 H ABG O2 Content 20.2 ABG Base Excess -14.2 L ABG Hemoglobin 14.7 ABG Carboxyhemoglobin 1.9 H POC ABG HHb (Measured) 0 ABG Methemoglobin 1.2 ABG O2 Capacity 20.2 VBG pH VBG pCO2 VBG HCO3 VBG O2 Sat (Calc) VBG Base Excess Hgb O2 Saturation 96.9 FiO2 21.0 Sodium 137 Potassium 3.3 L Chloride 112 H Carbon Dioxide 12 L Anion Gap 16 BUN 2 L Creatinine 0.5 L Est GFR ( Amer) > 60 Est GFR (Non-Af Amer) > 60 POC Glucose (mg/dL) 247 H Random Glucose 236 H Hemoglobin A1c Serum Osmolality Calcium 8.1 L Phosphorus 1.6 L Magnesium 1.8 Total Bilirubin AST ALT Alkaline Phosphatase Troponin I Total Protein Albumin Globulin Albumin/Globulin Ratio Triglycerides Cholesterol LDL Cholesterol Direct HDL Cholesterol TSH 3rd Generation Salicylates Acetaminophen Alcohol, Quantitative B-Hydroxybutyrate Hepatitis C Antibody 04/09/18 04/09/18 04/09/18 08:40 09:37 11:50 WBC RBC Hgb Hct MCV MCH MCHC RDW Plt Count Gran % Lymph % (Auto) Stanton % (Auto) Eos % (Auto) Baso % (Auto) Gran # Lymph # (Auto) Stanton # (Auto) Eos # (Auto) Baso # (Auto) pCO2 pO2 HCO3 ABG pH ABG Total CO2 ABG O2 Saturation ABG O2 Content ABG Base Excess ABG Hemoglobin ABG Carboxyhemoglobin POC ABG HHb (Measured) ABG Methemoglobin ABG O2 Capacity VBG pH VBG pCO2 VBG HCO3 VBG O2 Sat (Calc) VBG Base Excess Hgb O2 Saturation FiO2 Sodium 138 Potassium 3.6 Chloride 110 H Carbon Dioxide 13 L Anion Gap 19 BUN < 2 L Creatinine 0.5 L Est GFR ( Amer) > 60 Est GFR (Non-Af Amer) > 60 POC Glucose (mg/dL) 234 H 248 H Random Glucose 217 H Hemoglobin A1c Serum Osmolality Calcium 8.2 L Phosphorus 2.3 L Magnesium 1.7 Total Bilirubin AST ALT Alkaline Phosphatase Troponin I Total Protein Albumin Globulin Albumin/Globulin Ratio Triglycerides Cholesterol LDL Cholesterol Direct HDL Cholesterol TSH 3rd Generation Salicylates Acetaminophen Alcohol, Quantitative B-Hydroxybutyrate Hepatitis C Antibody 04/09/18 04/09/18 16:10 16:37 WBC RBC Hgb Hct MCV MCH MCHC RDW Plt Count Gran % Lymph % (Auto) Stanton % (Auto) Eos % (Auto) Baso % (Auto) Gran # Lymph # (Auto) Stanton # (Auto) Eos # (Auto) Baso # (Auto) pCO2 pO2 HCO3 ABG pH ABG Total CO2 ABG O2 Saturation ABG O2 Content ABG Base Excess ABG Hemoglobin ABG Carboxyhemoglobin POC ABG HHb (Measured) ABG Methemoglobin ABG O2 Capacity VBG pH VBG pCO2 VBG HCO3 VBG O2 Sat (Calc) VBG Base Excess Hgb O2 Saturation FiO2 Sodium 136 Potassium 4.3 Chloride 108 H Carbon Dioxide 14 L Anion Gap 18 BUN < 2 L Creatinine 0.5 L Est GFR ( Amer) > 60 Est GFR (Non-Af Amer) > 60 POC Glucose (mg/dL) 244 H Random Glucose 265 H Hemoglobin A1c Serum Osmolality Calcium 8.6 Phosphorus 2.0 L Magnesium 1.7 Total Bilirubin AST ALT Alkaline Phosphatase Troponin I Total Protein Albumin Globulin Albumin/Globulin Ratio Triglycerides Cholesterol LDL Cholesterol Direct HDL Cholesterol TSH 3rd Generation Salicylates Acetaminophen Alcohol, Quantitative B-Hydroxybutyrate Hepatitis C Antibody Critical Care Progress Note - Nutrition Nutrition: Nutrition Category Date Time Status Consistent Carbohydrate [DIET] Diets 04/09/18 Lunch Ordered Attending/Attestation - Attestation I have personally seen and examined this patient.: Yes I have fully participated in the care of the patient.: Yes I have reviewed all pertinent clinical information: Yes Notes (Text): 04/09/18 16:[address] Gatica note
[2018-04-09] MEDS ORDERED: Sodium Chloride 0.9% 1,000 ML IV SCH ×2 (11:30→13:45)
[2018-04-09] MEDS ORDERED: Insulin Regular 1 UNITS/0.01 ML ML SC SCH (11:30)
[2018-04-09] MEDS ORDERED: Insulin Reg-MEDIUM-Coverage SC SCH (11:30)
[2018-04-09 12:06] LABS: BLOOD UREA NITROGEN < 2 mg/dL (7-21); CALCIUM 8.2 mg/dL (8.4-10.5); GFR NON-AFRICAN AMERICAN > 60
--- NOTE | 2018-04-09 12:47 | CP.PCM.CON ---
History of Present Illness - History of Present Illness History of Present Illness: Nephrology Consultation Note: Assessment:critical HAGMA with respi compensation likely due to DKA with new diagnosed DM with hyperglycemia Morbid obesity Hypokalemia, hypophosptahemia, hypomagnesmeia Plan No acute need for renal replacement therapy at this time. work up for toxic ingestion neg and favors DKA BP controlled without meds Maintain hemodynamics stable. Avoid hypotension. Monitor Input/Output, daily weights and renal function with basic metabolic panel continue with IVF. NAGMA can develop with correction of HAGMA due to saline infusion and loss of ketones in urine with his normal renal function supplement lytes check UA, urine microalb/cr and pro/cr. HIV/Hep B and C serology. Vit D level Dose meds/antibiotics for normal GFR. Glycemic control. pt need weight loss , diet exercise and lifestyle modifications Further work up/management as per primary team Thanks for allowing me to participate in care of your patient. Will follow patient with you. Please call if any Qs. had d/w team Dr Albert Victor Office: [phone] Chief Complaint; high sugar Reason for consult: acidosis HPI: Pt is a 23 M without any known hx except morbid obesity presented with complaints of nasuea and found to have severe acidosis with DKA hence renal consulted pt not aware about DM or kidney disease in past. he was unable to have adequate oral intake for 1-2 days prior to presentation Denies OTC/herbal meds or NSAIDs No recent iodinated contrast exposure. No obvious episodes of low BP. Pt feels better now. no complaints. denies CP/SOB/nausea/vomitting. pt not aware about kidney disease in past ROS: Cardiovascular: No chest pain. Pulmonary: No shortness of breath Gastrointestinal: denies abdominal pain No nausea. No vomiting. Genitourinary: No pain while urinating. Denies blood in urine. All other negative except as mentioned in HPI Physical Examination: General Appearance: Comfortable, in no acute respiratory distress, co-operative . obese Vitals reviewed and noted as below Head; Atraumatic, normocephalic ENT: no ulcers no thrush. Tongue is midline. Oropharynx: no rash or ulcers. EYES: Pupils are equal, round and reactive to light accommodation. Eye muscles and extraocular movement intact. Sclera is anicteric. Neck; supple no lymphadenopathy, no thyromegaly or bruit Lungs: Normal respiratory rate/effort. Breath sounds bilateral equal and clear Heart: Normal rate. s1s2 normal. No rub or gallop. Extremities: no edema. No varicose veins Neurological: Patient is alert, awake and oriented to person, place and time. No focal deficit. Strength bilateral appropriate and equal Skin: Warm and dry. Normal turgor. No rash. Palpitation: Normal elasticity for age Abdomen: Abdomen is soft. Bowel sounds +. There is no abdominal tenderness, no guarding/rigidity no organomegaly Psych: normal insight and normal affect/mood MSK: no joint tenderness or swelling. Digits and nails normal, no deformity : kidney or bladder not palpable Labs/imaging reviewed. Past medical history, past surgical history, family history, social history, allergy reviewed and noted as below Family hx: no hx of CKD. Rest non-contributory work up: A1c 14% UA with ketone and glucose ct abdomen neg Past Patient History - Infectious Disease Hx of Infectious Diseases: None - Past Social History Smoking Status: Never Smoked - CARDIAC Hx Cardiac Disorders: No - PULMONARY Hx Respiratory Disorders: No - NEUROLOGICAL Hx Neurological Disorder: No - HEENT Hx HEENT Problems: No - RENAL Hx Chronic Kidney Disease: No - ENDOCRINE/METABOLIC Hx Endocrine Disorders: No - HEMATOLOGICAL/ONCOLOGICAL Hx Blood Disorders: No - INTEGUMENTARY Hx Dermatological Problems: No - MUSCULOSKELETAL/RHEUMATOLOGICAL Hx Falls: No - GASTROINTESTINAL Hx Gastrointestinal Disorders: Yes (obese) - PSYCHIATRIC Hx Substance Use: Yes (occasional marijuana) - SURGICAL HISTORY Hx Musculoskeletal Surgery: (pt denies left wrist sx, just was casted) - ANESTHESIA Hx Anesthesia: No Meds Allergies/Adverse Reactions: Allergies Allergy/AdvReac Type Severity Reaction Status Date / Time No Known Allergies Allergy Verified 04/08/18 16:15 - Medications Medications: Current Medications Atorvastatin Calcium (Lipitor) 20 mg PO DIN LEONARDO Dextrose (Dextrose 50% Inj) 0 ml IV STAT PRN; Protocol PRN Reason: Hypoglycemia Protocol Dextrose (Dextrose 5% In Water 1000 Ml) 1,000 mls @ 0 mls/hr IV .Q0M PRN; Protocol; Per Protocol PRN Reason: Hypoglycemia Protocol Potassium Phosphate 15 mmole/ (Sodium Chloride) 255 mls @ 42.5 mls/hr IVPB ONCE ONE Stop: 08/28/18 14:14 Sodium Chloride (Sodium Chloride 0.9%) 1,000 mls @ 100 mls/hr IV .Q10H LEONARDO Insulin Human Regular (Humulin R) 8 units SC AC LEONARDO Last Admin: 04/09/18 11:37 Dose: 8 units Insulin Human Regular (Humulin R Med) 0 units SC ACHS LEONARDO PRN Reason: Protocol Last Admin: 04/09/18 11:38 Dose: 3 units Pantoprazole Sodium (Protonix Ec Tab) 40 mg PO 0600 LEONARDO Last Admin: 04/09/18 06:11 Dose: 40 mg Results - Vital Signs Recent Vital Signs: Last Vital Signs Temp 98.9 F 04/08/18 18:48 Pulse 75 04/09/18 07:40 Resp 19 04/09/18 06:30 BP 135/76 04/09/18 04:00 Pulse Ox 99 04/09/18 06:30 - Labs Result Diagrams: 04/09/18 04:12 04/09/18 11:50 Labs: Laboratory Results - last 24 hr 04/08/18 04/08/18 04/08/18 16:50 16:50 16:50 WBC RBC Hgb Hct MCV MCH MCHC RDW Plt Count Gran % Lymph % (Auto) Stanley % (Auto) Eos % (Auto) Baso % (Auto) Gran # Lymph # (Auto) Stanley # (Auto) Eos # (Auto) Baso # (Auto) pCO2 pO2 HCO3 ABG pH ABG Total CO2 ABG O2 Saturation ABG O2 Content ABG Base Excess ABG Hemoglobin ABG Carboxyhemoglobin POC ABG HHb (Measured) ABG Methemoglobin ABG O2 Capacity VBG pH VBG pCO2 VBG HCO3 VBG O2 Sat (Calc) VBG Base Excess Hgb O2 Saturation FiO2 Sodium Potassium Chloride Carbon Dioxide Anion Gap BUN Creatinine Est GFR ( Amer) Est GFR (Non-Af Amer) POC Glucose (mg/dL) Random Glucose Hemoglobin A1c 13.9 H Serum Osmolality 299 Calcium Phosphorus Magnesium Total Bilirubin AST ALT Alkaline Phosphatase Troponin I Total Protein Albumin Globulin Albumin/Globulin Ratio Triglycerides Cholesterol LDL Cholesterol Direct HDL Cholesterol TSH 3rd Generation 1.90 Salicylates < 1 L Acetaminophen < 10.0 L Alcohol, Quantitative < 10 B-Hydroxybutyrate 04/08/18 04/08/18 04/08/18 16:50 17:47 19:11 WBC RBC Hgb Hct MCV MCH MCHC RDW Plt Count Gran % Lymph % (Auto) Stanley % (Auto) Eos % (Auto) Baso % (Auto) Gran # Lymph # (Auto) Stanley # (Auto) Eos # (Auto) Baso # (Auto) pCO2 pO2 HCO3 ABG pH ABG Total CO2 ABG O2 Saturation ABG O2 Content ABG Base Excess ABG Hemoglobin ABG Carboxyhemoglobin POC ABG HHb (Measured) ABG Methemoglobin ABG O2 Capacity VBG pH VBG pCO2 VBG HCO3 VBG O2 Sat (Calc) VBG Base Excess Hgb O2 Saturation FiO2 Sodium 138 Potassium 4.0 Chloride 112 H Carbon Dioxide 7 L Anion Gap 24 H BUN 5 L Creatinine 0.5 L Est GFR ( Amer) > 60 Est GFR (Non-Af Amer) > 60 POC Glucose (mg/dL) 165 H 220 H Random Glucose 232 H Hemoglobin A1c Serum Osmolality Calcium 8.2 L Phosphorus Magnesium Total Bilirubin 0.9 AST 88 H ALT 134 H Alkaline Phosphatase 167 H Troponin I Total Protein 7.0 Albumin 3.7 Globulin 3.3 Albumin/Globulin Ratio 1.1 Triglycerides Cholesterol LDL Cholesterol Direct HDL Cholesterol TSH 3rd Generation Salicylates Acetaminophen Alcohol, Quantitative B-Hydroxybutyrate 7.02 H 04/08/18 04/08/18 04/08/18 20:15 20:30 20:40 WBC RBC Hgb Hct MCV MCH MCHC RDW Plt Count Gran % Lymph % (Auto) Stanley % (Auto) Eos % (Auto) Baso % (Auto) Gran # Lymph # (Auto) Stanley # (Auto) Eos # (Auto) Baso # (Auto) pCO2 pO2 24 L HCO3 ABG pH ABG Total CO2 ABG O2 Saturation ABG O2 Content ABG Base Excess ABG Hemoglobin ABG Carboxyhemoglobin POC ABG HHb (Measured) ABG Methemoglobin ABG O2 Capacity VBG pH 7.14 L* VBG pCO2 31.0 L VBG HCO3 10.6 L VBG O2 Sat (Calc) 55.3 VBG Base Excess -17.2 L Hgb O2 Saturation FiO2 Sodium 140 Potassium 4.1 Chloride 112 H Carbon Dioxide 10 L D Anion Gap 22 H BUN 4 L Creatinine 0.6 L Est GFR ( Amer) > 60 Est GFR (Non-Af Amer) > 60 POC Glucose (mg/dL) 207 H Random Glucose 231 H Hemoglobin A1c Serum Osmolality Calcium 8.4 Phosphorus 0.8 L* Magnesium 1.9 Total Bilirubin AST ALT Alkaline Phosphatase Troponin I < 0.01 Total Protein Albumin Globulin Albumin/Globulin Ratio Triglycerides Cholesterol LDL Cholesterol Direct HDL Cholesterol TSH 3rd Generation Salicylates Acetaminophen Alcohol, Quantitative B-Hydroxybutyrate 04/08/18 04/09/18 04/09/18 21:34 00:28 01:36 WBC RBC Hgb Hct MCV MCH MCHC RDW Plt Count Gran % Lymph % (Auto) Stanley % (Auto) Eos % (Auto) Baso % (Auto) Gran # Lymph # (Auto) Stanley # (Auto) Eos # (Auto) Baso # (Auto) pCO2 pO2 HCO3 ABG pH ABG Total CO2 ABG O2 Saturation ABG O2 Content ABG Base Excess ABG Hemoglobin ABG Carboxyhemoglobin POC ABG HHb (Measured) ABG Methemoglobin ABG O2 Capacity VBG pH VBG pCO2 VBG HCO3 VBG O2 Sat (Calc) VBG Base Excess Hgb O2 Saturation FiO2 Sodium 139 Potassium 3.6 Chloride 112 H Carbon Dioxide 11 L Anion Gap 19 BUN 4 L Creatinine 0.6 L Est GFR ( Amer) > 60 Est GFR (Non-Af Amer) > 60 POC Glucose (mg/dL) 243 H 205 H Random Glucose 205 H Hemoglobin A1c Serum Osmolality Calcium 8.3 L Phosphorus 0.8 L* Magnesium 2.0 Total Bilirubin AST ALT Alkaline Phosphatase Troponin I Total Protein Albumin Globulin Albumin/Globulin Ratio Triglycerides Cholesterol LDL Cholesterol Direct HDL Cholesterol TSH 3rd Generation Salicylates Acetaminophen Alcohol, Quantitative B-Hydroxybutyrate 04/09/18 04/09/18 04/09/18 02:25 03:31 04:12 WBC RBC Hgb Hct MCV MCH MCHC RDW Plt Count Gran % Lymph % (Auto) Stanley % (Auto) Eos % (Auto) Baso % (Auto) Gran # Lymph # (Auto) Stanley # (Auto) Eos # (Auto) Baso # (Auto) pCO2 pO2 HCO3 ABG pH ABG Total CO2 ABG O2 Saturation ABG O2 Content ABG Base Excess ABG Hemoglobin ABG Carboxyhemoglobin POC ABG HHb (Measured) ABG Methemoglobin ABG O2 Capacity VBG pH VBG pCO2 VBG HCO3 VBG O2 Sat (Calc) VBG Base Excess Hgb O2 Saturation FiO2 Sodium 138 Potassium 3.3 L Chloride 113 H Carbon Dioxide 10 L Anion Gap 18 BUN 3 L Creatinine 0.5 L Est GFR ( Amer) > 60 Est GFR (Non-Af Amer) > 60 POC Glucose (mg/dL) 217 H 226 H Random Glucose 246 H Hemoglobin A1c Serum Osmolality Calcium 8.3 L Phosphorus 1.5 L Magnesium 1.9 Total Bilirubin AST ALT Alkaline Phosphatase Troponin I < 0.01 Total Protein Albumin Globulin Albumin/Globulin Ratio Triglycerides Cholesterol LDL Cholesterol Direct HDL Cholesterol TSH 3rd Generation Salicylates Acetaminophen Alcohol, Quantitative B-Hydroxybutyrate 04/09/18 04/09/18 04/09/18 04:12 04:28 05:30 WBC 6.8 D RBC 5.55 Hgb 14.8 D Hct 42.0 MCV 75.7 L MCH 26.7 MCHC 35.2 RDW 15.2 H Plt Count 120 Gran % 57.0 Lymph % (Auto) 27.7 Stanley % (Auto) 14.1 H Eos % (Auto) 0.9 L Baso % (Auto) 0.3 Gran # 3.90 Lymph # (Auto) 1.9 Stanley # (Auto) 1.0 H Eos # (Auto) 0.1 Baso # (Auto) 0.02 pCO2 pO2 HCO3 ABG pH ABG Total CO2 ABG O2 Saturation ABG O2 Content ABG Base Excess ABG Hemoglobin ABG Carboxyhemoglobin POC ABG HHb (Measured) ABG Methemoglobin ABG O2 Capacity VBG pH VBG pCO2 VBG HCO3 VBG O2 Sat (Calc) VBG Base Excess Hgb O2 Saturation FiO2 Sodium Potassium Chloride Carbon Dioxide Anion Gap BUN Creatinine Est GFR ( Amer) Est GFR (Non-Af Amer) POC Glucose (mg/dL) 236 H Random Glucose Hemoglobin A1c Serum Osmolality Calcium Phosphorus Magnesium Total Bilirubin AST ALT Alkaline Phosphatase Troponin I Total Protein Albumin Globulin Albumin/Globulin Ratio Triglycerides 174 H Cholesterol 267 H LDL Cholesterol Direct 206 H HDL Cholesterol 36 TSH 3rd Generation Salicylates Acetaminophen Alcohol, Quantitative B-Hydroxybutyrate 04/09/18 04/09/18 04/09/18 05:52 06:41 07:31 WBC RBC Hgb Hct MCV MCH MCHC RDW Plt Count Gran % Lymph % (Auto) Stanley % (Auto) Eos % (Auto) Baso % (Auto) Gran # Lymph # (Auto) Stanley # (Auto) Eos # (Auto) Baso # (Auto) pCO2 pO2 HCO3 ABG pH ABG Total CO2 ABG O2 Saturation ABG O2 Content ABG Base Excess ABG Hemoglobin ABG Carboxyhemoglobin POC ABG HHb (Measured) ABG Methemoglobin ABG O2 Capacity VBG pH VBG pCO2 VBG HCO3 VBG O2 Sat (Calc) VBG Base Excess Hgb O2 Saturation FiO2 Sodium Potassium Chloride Carbon Dioxide Anion Gap BUN Creatinine Est GFR ( Amer) Est GFR (Non-Af Amer) POC Glucose (mg/dL) 256 H 227 H 247 H Random Glucose Hemoglobin A1c Serum Osmolality Calcium Phosphorus Magnesium Total Bilirubin AST ALT Alkaline Phosphatase Troponin I Total Protein Albumin Globulin Albumin/Globulin Ratio Triglycerides Cholesterol LDL Cholesterol Direct HDL Cholesterol TSH 3rd Generation Salicylates Acetaminophen Alcohol, Quantitative B-Hydroxybutyrate 04/09/18 04/09/18 04/09/18 08:00 08:00 08:40 WBC RBC Hgb Hct MCV MCH MCHC RDW Plt Count Gran % Lymph % (Auto) Stanley % (Auto) Eos % (Auto) Baso % (Auto) Gran # Lymph # (Auto) Stanley # (Auto) Eos # (Auto) Baso # (Auto) pCO2 23 L pO2 118.0 H HCO3 10.6 L ABG pH 7.27 L ABG Total CO2 11.3 L ABG O2 Saturation 100.0 H ABG O2 Content 20.2 ABG Base Excess -14.2 L ABG Hemoglobin 14.7 ABG Carboxyhemoglobin 1.9 H POC ABG HHb (Measured) 0 ABG Methemoglobin 1.2 ABG O2 Capacity 20.2 VBG pH VBG pCO2 VBG HCO3 VBG O2 Sat (Calc) VBG Base Excess Hgb O2 Saturation 96.9 FiO2 21.0 Sodium 137 Potassium 3.3 L Chloride 112 H Carbon Dioxide 12 L Anion Gap 16 BUN 2 L Creatinine 0.5 L Est GFR ( Amer) > 60 Est GFR (Non-Af Amer) > 60 POC Glucose (mg/dL) 234 H Random Glucose 236 H Hemoglobin A1c Serum Osmolality Calcium 8.1 L Phosphorus 1.6 L Magnesium 1.8 Total Bilirubin AST ALT Alkaline Phosphatase Troponin I Total Protein Albumin Globulin Albumin/Globulin Ratio Triglycerides Cholesterol LDL Cholesterol Direct HDL Cholesterol TSH 3rd Generation Salicylates Acetaminophen Alcohol, Quantitative B-Hydroxybutyrate 04/09/18 04/09/18 09:37 11:50 WBC RBC Hgb Hct MCV MCH MCHC RDW Plt Count Gran % Lymph % (Auto) Stanley % (Auto) Eos % (Auto) Baso % (Auto) Gran # Lymph # (Auto) Stanley # (Auto) Eos # (Auto) Baso # (Auto) pCO2 pO2 HCO3 ABG pH ABG Total CO2 ABG O2 Saturation ABG O2 Content ABG Base Excess ABG Hemoglobin ABG Carboxyhemoglobin POC ABG HHb (Measured) ABG Methemoglobin ABG O2 Capacity VBG pH VBG pCO2 VBG HCO3 VBG O2 Sat (Calc) VBG Base Excess Hgb O2 Saturation FiO2 Sodium 138 Potassium 3.6 Chloride 110 H Carbon Dioxide 13 L Anion Gap 19 BUN < 2 L Creatinine 0.5 L Est GFR ( Amer) > 60 Est GFR (Non-Af Amer) > 60 POC Glucose (mg/dL) 248 H Random Glucose 217 H Hemoglobin A1c Serum Osmolality Calcium 8.2 L Phosphorus 2.3 L Magnesium 1.7 Total Bilirubin AST ALT Alkaline Phosphatase Troponin I Total Protein Albumin Globulin Albumin/Globulin Ratio Triglycerides Cholesterol LDL Cholesterol Direct HDL Cholesterol TSH 3rd Generation Salicylates Acetaminophen Alcohol, Quantitative B-Hydroxybutyrate
[2018-04-09 13:07] LABS: HEPATITIS C ANTIBODY NEGATIVE (NEGATIVE)
[2018-04-09] MEDS ORDERED: Insulin Lispro (HUMAlog) HIGH Coverage SC SCH (16:30)
[2018-04-09 16:33] LABS: CALCIUM 8.6 mg/dL (8.4-10.5); GFR NON-AFRICAN AMERICAN > 60
[2018-04-09 16:40] LABS: BLOOD UREA NITROGEN < 2 mg/dL (7-21)
[2018-04-09] MEDS: Insulin Reg-LOW-Coverage SC SCH ×2 (16:40→21:55)
[2018-04-09] MEDS: Insulin Human NPH/Reg 70/30 Vial(3 ml) SC SCH (17:35)
--- NOTE | 2018-04-09 18:00 | CP.PCM.PN ---
Subjective - Date & Time of Evaluation Date of Evaluation: 04/09/18 Time of Evaluation: 09:00 - Subjective Subjective: Renato Taylor PGY-1, Medicine progress note for Dr Abdalla. Pt seen and examined this morning in ICU. Pt denies nausea, vomiting, SOB, or chest pain. Objective - Vital Signs/Intake and Output Vital Signs (last 24 hours): Temp Pulse Resp BP Pulse Ox 97.7 F 87 20 117/77 100 04/09/18 17:10 04/09/18 17:10 04/09/18 17:10 04/09/18 17:10 04/09/18 17:10 Intake and Output: 04/09/18 04/09/18 06:59 18:59 Intake Total 2403 1964.2 Output Total 1000 800 Balance 1403 1164.2 - Medications Medications: Current Medications Dextrose (Dextrose 50% Inj) 0 ml IV STAT PRN; Protocol PRN Reason: Hypoglycemia Protocol Dextrose (Dextrose 5% In Water 1000 Ml) 1,000 mls @ 0 mls/hr IV .Q0M PRN; Protocol; Per Protocol PRN Reason: Hypoglycemia Protocol Sodium Chloride (Sodium Chloride 0.9%) 1,000 mls @ 200 mls/hr IV .Q5H LEONARDO Insulin Human NPH (Humulin N) 12 units SC HS LEONARDO Insulin Human Regular (Humulin R Low) 0 units SC ACHS LEONARDO PRN Reason: Protocol Last Admin: 04/09/18 16:40 Dose: Not Given Pantoprazole Sodium (Protonix Ec Tab) 40 mg PO 0600 [facility] Last Admin: 04/09/18 06:11 Dose: 40 mg - Labs Labs: 04/09/18 04:12 04/09/18 16:10 PT 11.3 SECONDS (9.4-12.5) 04/08/18 13:35 INR 0.99 04/08/18 13:35 APTT 30.6 Seconds (25.1-36.5) 04/08/18 13:35 - Constitutional Appears: No Acute Distress - Head Exam Head Exam: ATRAUMATIC, NORMOCEPHALIC - Eye Exam Eye Exam: EOMI - ENT Exam ENT Exam: Mucous Membranes Moist - Neck Exam Neck Exam: Full ROM - Respiratory Exam Respiratory Exam: Clear to Ausculation Bilateral, NORMAL BREATHING PATTERN. absent: Accessory Muscle Use - Cardiovascular Exam Cardiovascular Exam: REGULAR RHYTHM, RRR, +S1, +S2. absent: Diastolic murmur, JVD, Murmur - GI/Abdominal Exam GI & Abdominal Exam: Soft, Normal Bowel Sounds. absent: Guarding, Rigid, Tenderness, Rebound - Extremities Exam Extremities Exam: Full ROM. absent: Calf Tenderness, Pedal Edema, Tenderness - Back Exam Back Exam: Full ROM, NORMAL INSPECTION. absent: CVA tenderness (L), CVA tenderness (R), muscle spasm - Neurological Exam Neurological Exam: Alert, Awake, Oriented x3 - Psychiatric Exam Psychiatric exam: Normal Affect, Normal Mood - Skin Skin Exam: Dry, Normal Color, Warm Assessment and Plan - Assessment and Plan (Free Text) Assessment: Pt is a 23 yo Male with no PMH who presents with complaint of nausea, vomiting, chest pain and abdominal pain, admitted for DKA. Plan: DKA - Nephro consulted: Dr Victor, no need for renal replacement therapy at this time - Endocrinology consulted, Dr Sawyer - DM education ordered - no leukocytosis at this time - ABG: pCO2 23, improving. HCO3 10.6 improving. pH 7.27 improving. - Anion gap has closed - glucose 240's - K repleted - UA negative for ketones, B-Hydroxybutyrate 1.02 - Insulin NPH 12 SC HS - Insulin NPH 30 SC ACB - Insulin NPH 20 ACD - Insulin Regular SSI ACHS - CXR no active disease ACS rule out - Trops negative x3 - EKG shows on signs of ST or T wave abnormalities Elevated LFTs - CT abdomen and pelvis: shows severe fatty infiltration of the liver - Hep A pending - Hep B pending - Hep C negative HLD - LDL 206 - wait for LFTs to return to normal before starting Atorvastatin Ppx - SCD - Pantoprazole Pt seen, reviewed, and assessment/ plan discussed with Dr. Lianne Taylor PGY-1 Internal Medicine Resident
[2018-04-09 19:47] LABS: HEPATITIS B SURFACE AG Negative (NEGATIVE)
[2018-04-09 19:53] LABS: HEPATITIS A IGM NEGATIVE (NEGATIVE); HEPATITIS B CORE AB NEGATIVE (NEGATIVE)
[2018-04-09 20:41] LABS: BLOOD UREA NITROGEN 2 mg/dL (7-21); CALCIUM 8.3 mg/dL (8.4-10.5); GFR NON-AFRICAN AMERICAN > 60
--- NOTE | 2018-04-09 21:11 | CP.PCM.CON ---
History of Present Illness - History of Present Illness History of Present Illness: Endocrinology consult note for Dr. Sawyer's service - Adam Alford PGY3 HPI: Patient is a 23yo male with no significant past medical history that presented to [facility] [place] with c/o abdominal pain. He reported eating taco chang several days prior and shortly thereafter began having episodes of non-bilious, non- bloody vomiting, poor oral intake and frequent urination. The days leading up to presentation he noted increasing thirst and weakness. Upon arrival to the ED , he was noted to have significant metabolic acidosis secondary to diabetic ketoacidosis. He denied chest pain, palpitations, SOB, fever, chills, cough, focal weakness, numbness, tingling. Endocrinology consulted for metabolic management. 12 point ROS obtained and negative, except as per HPI. PMH: denies PSH: denies Allergies: NKDA Fam Hx: DM (Father, paternal grandparents, mother recently diagnosed) Soc Hx: Intermittent vaping, intermittent marijuana use (last used ~5 months ago ); denies illicit drug use PMD: Denies Past Patient History - Infectious Disease Hx of Infectious Diseases: None - Past Social History Smoking Status: Never Smoked - CARDIAC Hx Cardiac Disorders: No - PULMONARY Hx Respiratory Disorders: No - NEUROLOGICAL Hx Neurological Disorder: No - HEENT Hx HEENT Problems: No - RENAL Hx Chronic Kidney Disease: No - ENDOCRINE/METABOLIC Hx Endocrine Disorders: No - HEMATOLOGICAL/ONCOLOGICAL Hx Blood Disorders: No - INTEGUMENTARY Hx Dermatological Problems: No - MUSCULOSKELETAL/RHEUMATOLOGICAL Hx Falls: No - GASTROINTESTINAL Hx Gastrointestinal Disorders: Yes (obese) - PSYCHIATRIC Hx Substance Use: Yes (occasional marijuana) - SURGICAL HISTORY Hx Musculoskeletal Surgery: (pt denies left wrist sx, just was casted) - ANESTHESIA Hx Anesthesia: No Meds Allergies/Adverse Reactions: Allergies Allergy/AdvReac Type Severity Reaction Status Date / Time No Known Allergies Allergy Verified 04/08/18 16:15 - Medications Medications: Current Medications Dextrose (Dextrose 50% Inj) 0 ml IV STAT PRN; Protocol PRN Reason: Hypoglycemia Protocol Dextrose (Dextrose 5% In Water 1000 Ml) 1,000 mls @ 0 mls/hr IV .Q0M PRN; Protocol; Per Protocol PRN Reason: Hypoglycemia Protocol Sodium Chloride (Sodium Chloride 0.9%) 1,000 mls @ 200 mls/hr IV .Q5H LEONARDO Insulin Human NPH (Humulin N) 12 units SC HS LEONARDO Insulin Human Regular (Humulin R Low) 0 units SC ACHS LEONARDO PRN Reason: Protocol Last Admin: 04/09/18 16:40 Dose: Not Given Pantoprazole Sodium (Protonix Ec Tab) 40 mg PO 0600 [facility] Last Admin: 04/09/18 06:11 Dose: 40 mg Potassium Phos/Sodium Phos (Neutra-Phos) 1 pkt PO DAILY [facility] Physical Exam - Constitutional Appears: No Acute Distress - Head Exam Head Exam: ATRAUMATIC, NORMAL INSPECTION, NORMOCEPHALIC - Eye Exam Eye Exam: EOMI Pupil Exam: PERRL - ENT Exam ENT Exam: Mucous Membranes Moist - Neck Exam Neck exam: Positive for: Normal Inspection. Negative for: Lymphadenopathy, Tenderness, Thyromegaly - Respiratory Exam Respiratory Exam: Clear to Auscultation Bilateral. absent: Rales, Rhonchi, Wheezes - Cardiovascular Exam Cardiovascular Exam: RRR, +S1, +S2. absent: Clicks, Gallop, Rubs - GI/Abdominal Exam GI & Abdominal Exam: Normal Bowel Sounds, Soft. absent: Distended, Firm, Guarding, Rebound, Rigid, Tenderness - Extremities Exam Extremities exam: Positive for: normal inspection. Negative for: pedal edema, tenderness - Neurological Exam Neurological exam: Alert, CN II-XII Intact, Oriented x3 - Psychiatric Exam Psychiatric exam: Normal Affect, Normal Mood - Skin Skin Exam: Dry, Intact, Normal Color, Warm Results - Vital Signs Recent Vital Signs: Last Vital Signs Temp 97.7 F 04/09/18 17:10 Pulse 87 04/09/18 17:10 Resp 20 04/09/18 17:10 BP 117/77 04/09/18 17:10 Pulse Ox 100 04/09/18 17:10 - Labs Result Diagrams: 04/09/18 04:12 04/09/18 20:10 Labs: Laboratory Results - last 24 hr 04/08/18 04/08/18 04/08/18 16:50 20:15 21:34 WBC RBC Hgb Hct MCV MCH MCHC RDW Plt Count Gran % Lymph % (Auto) [place] % (Auto) Eos % (Auto) Baso % (Auto) Gran # Lymph # (Auto) [place] # (Auto) Eos # (Auto) Baso # (Auto) pCO2 pO2 HCO3 ABG pH ABG Total CO2 ABG O2 Saturation ABG O2 Content ABG Base Excess ABG Hemoglobin ABG Carboxyhemoglobin POC ABG HHb (Measured) ABG Methemoglobin ABG O2 Capacity Hgb O2 Saturation FiO2 Sodium Potassium Chloride Carbon Dioxide Anion Gap BUN Creatinine Est GFR ( Amer) Est GFR (Non-Af Amer) POC Glucose (mg/dL) 243 H Random Glucose Calcium Phosphorus Magnesium Troponin I Triglycerides Cholesterol LDL Cholesterol Direct HDL Cholesterol B-Hydroxybutyrate 7.02 H Hepatitis A IgM Ab Negative Hep Bs Antigen Negative Hep B Core IgM Ab Negative Hepatitis C Antibody Negative 04/09/18 04/09/18 04/09/18 00:28 01:36 02:25 WBC RBC Hgb Hct MCV MCH MCHC RDW Plt Count Gran % Lymph % (Auto) [place] % (Auto) Eos % (Auto) Baso % (Auto) Gran # Lymph # (Auto) [place] # (Auto) Eos # (Auto) Baso # (Auto) pCO2 pO2 HCO3 ABG pH ABG Total CO2 ABG O2 Saturation ABG O2 Content ABG Base Excess ABG Hemoglobin ABG Carboxyhemoglobin POC ABG HHb (Measured) ABG Methemoglobin ABG O2 Capacity Hgb O2 Saturation FiO2 Sodium 139 Potassium 3.6 Chloride 112 H Carbon Dioxide 11 L Anion Gap 19 BUN 4 L Creatinine 0.6 L Est GFR ( Amer) > 60 Est GFR (Non-Af Amer) > 60 POC Glucose (mg/dL) 205 H 217 H Random Glucose 205 H Calcium 8.3 L Phosphorus 0.8 L* Magnesium 2.0 Troponin I Triglycerides Cholesterol LDL Cholesterol Direct HDL Cholesterol B-Hydroxybutyrate Hepatitis A IgM Ab Hep Bs Antigen Hep B Core IgM Ab Hepatitis C Antibody 04/09/18 04/09/18 04/09/18 03:31 04:12 04:12 WBC 6.8 D RBC 5.55 Hgb 14.8 D Hct 42.0 MCV 75.7 L MCH 26.7 MCHC 35.2 RDW 15.2 H Plt Count 120 Gran % 57.0 Lymph % (Auto) 27.7 [place] % (Auto) 14.1 H Eos % (Auto) 0.9 L Baso % (Auto) 0.3 Gran # 3.90 Lymph # (Auto) 1.9 [place] # (Auto) 1.0 H Eos # (Auto) 0.1 Baso # (Auto) 0.02 pCO2 pO2 HCO3 ABG pH ABG Total CO2 ABG O2 Saturation ABG O2 Content ABG Base Excess ABG Hemoglobin ABG Carboxyhemoglobin POC ABG HHb (Measured) ABG Methemoglobin ABG O2 Capacity Hgb O2 Saturation FiO2 Sodium 138 Potassium 3.3 L Chloride 113 H Carbon Dioxide 10 L Anion Gap 18 BUN 3 L Creatinine 0.5 L Est GFR ( Amer) > 60 Est GFR (Non-Af Amer) > 60 POC Glucose (mg/dL) 226 H Random Glucose 246 H Calcium 8.3 L Phosphorus 1.5 L Magnesium 1.9 Troponin I < 0.01 Triglycerides Cholesterol LDL Cholesterol Direct HDL Cholesterol B-Hydroxybutyrate Hepatitis A IgM Ab Hep Bs Antigen Hep B Core IgM Ab Hepatitis C Antibody 04/09/18 04/09/18 04/09/18 04:28 05:30 05:52 WBC RBC Hgb Hct MCV MCH MCHC RDW Plt Count Gran % Lymph % (Auto) [place] % (Auto) Eos % (Auto) Baso % (Auto) Gran # Lymph # (Auto) [place] # (Auto) Eos # (Auto) Baso # (Auto) pCO2 pO2 HCO3 ABG pH ABG Total CO2 ABG O2 Saturation ABG O2 Content ABG Base Excess ABG Hemoglobin ABG Carboxyhemoglobin POC ABG HHb (Measured) ABG Methemoglobin ABG O2 Capacity Hgb O2 Saturation FiO2 Sodium Potassium Chloride Carbon Dioxide Anion Gap BUN Creatinine Est GFR ( Amer) Est GFR (Non-Af Amer) POC Glucose (mg/dL) 236 H 256 H Random Glucose Calcium Phosphorus Magnesium Troponin I Triglycerides 174 H Cholesterol 267 H LDL Cholesterol Direct 206 H HDL Cholesterol 36 B-Hydroxybutyrate Hepatitis A IgM Ab Hep Bs Antigen Hep B Core IgM Ab Hepatitis C Antibody 04/09/18 04/09/18 04/09/18 06:41 07:31 08:00 WBC RBC Hgb Hct MCV MCH MCHC RDW Plt Count Gran % Lymph % (Auto) [place] % (Auto) Eos % (Auto) Baso % (Auto) Gran # Lymph # (Auto) [place] # (Auto) Eos # (Auto) Baso # (Auto) pCO2 pO2 HCO3 ABG pH ABG Total CO2 ABG O2 Saturation ABG O2 Content ABG Base Excess ABG Hemoglobin ABG Carboxyhemoglobin POC ABG HHb (Measured) ABG Methemoglobin ABG O2 Capacity Hgb O2 Saturation FiO2 Sodium 137 Potassium 3.3 L Chloride 112 H Carbon Dioxide 12 L Anion Gap 16 BUN 2 L Creatinine 0.5 L Est GFR ( Amer) > 60 Est GFR (Non-Af Amer) > 60 POC Glucose (mg/dL) 227 H 247 H Random Glucose 236 H Calcium 8.1 L Phosphorus 1.6 L Magnesium 1.8 Troponin I Triglycerides Cholesterol LDL Cholesterol Direct HDL Cholesterol B-Hydroxybutyrate Hepatitis A IgM Ab Hep Bs Antigen Hep B Core IgM Ab Hepatitis C Antibody 04/09/18 04/09/18 04/09/18 08:00 08:40 09:37 WBC RBC Hgb Hct MCV MCH MCHC RDW Plt Count Gran % Lymph % (Auto) [place] % (Auto) Eos % (Auto) Baso % (Auto) Gran # Lymph # (Auto) [place] # (Auto) Eos # (Auto) Baso # (Auto) pCO2 23 L pO2 118.0 H HCO3 10.6 L ABG pH 7.27 L ABG Total CO2 11.3 L ABG O2 Saturation 100.0 H ABG O2 Content 20.2 ABG Base Excess -14.2 L ABG Hemoglobin 14.7 ABG Carboxyhemoglobin 1.9 H POC ABG HHb (Measured) 0 ABG Methemoglobin 1.2 ABG O2 Capacity 20.2 Hgb O2 Saturation 96.9 FiO2 21.0 Sodium Potassium Chloride Carbon Dioxide Anion Gap BUN Creatinine Est GFR ( Amer) Est GFR (Non-Af Amer) POC Glucose (mg/dL) 234 H 248 H Random Glucose Calcium Phosphorus Magnesium Troponin I Triglycerides Cholesterol LDL Cholesterol Direct HDL Cholesterol B-Hydroxybutyrate Hepatitis A IgM Ab Hep Bs Antigen Hep B Core IgM Ab Hepatitis C Antibody 04/09/18 04/09/18 04/09/18 11:22 11:50 12:53 WBC RBC Hgb Hct MCV MCH MCHC RDW Plt Count Gran % Lymph % (Auto) [place] % (Auto) Eos % (Auto) Baso % (Auto) Gran # Lymph # (Auto) [place] # (Auto) Eos # (Auto) Baso # (Auto) pCO2 pO2 HCO3 ABG pH ABG Total CO2 ABG O2 Saturation ABG O2 Content ABG Base Excess ABG Hemoglobin ABG Carboxyhemoglobin POC ABG HHb (Measured) ABG Methemoglobin ABG O2 Capacity Hgb O2 Saturation FiO2 Sodium 138 Potassium 3.6 Chloride 110 H Carbon Dioxide 13 L Anion Gap 19 BUN < 2 L Creatinine 0.5 L Est GFR ( Amer) > 60 Est GFR (Non-Af Amer) > 60 POC Glucose (mg/dL) 225 H 339 H Random Glucose 217 H Calcium 8.2 L Phosphorus 2.3 L Magnesium 1.7 Troponin I Triglycerides Cholesterol LDL Cholesterol Direct HDL Cholesterol B-Hydroxybutyrate Hepatitis A IgM Ab Hep Bs Antigen Hep B Core IgM Ab Hepatitis C Antibody 04/09/18 04/09/18 04/09/18 16:10 16:37 20:10 WBC RBC Hgb Hct MCV MCH MCHC RDW Plt Count Gran % Lymph % (Auto) [place] % (Auto) Eos % (Auto) Baso % (Auto) Gran # Lymph # (Auto) [place] # (Auto) Eos # (Auto) Baso # (Auto) pCO2 pO2 HCO3 ABG pH ABG Total CO2 ABG O2 Saturation ABG O2 Content ABG Base Excess ABG Hemoglobin ABG Carboxyhemoglobin POC ABG HHb (Measured) ABG Methemoglobin ABG O2 Capacity Hgb O2 Saturation FiO2 Sodium 136 135 Potassium 4.3 3.9 Chloride 108 H 106 Carbon Dioxide 14 L 15 L Anion Gap 18 17 BUN < 2 L 2 L Creatinine 0.5 L 0.6 L Est GFR ( Amer) > 60 > 60 Est GFR (Non-Af Amer) > 60 > 60 POC Glucose (mg/dL) 244 H Random Glucose 265 H 317 H* Calcium 8.6 8.3 L Phosphorus 2.0 L 1.5 L Magnesium 1.7 1.7 Troponin I Triglycerides Cholesterol LDL Cholesterol Direct HDL Cholesterol B-Hydroxybutyrate Hepatitis A IgM Ab Hep Bs Antigen Hep B Core IgM Ab Hepatitis C Antibody Assessment & Plan - Assessment and Plan (Free Text) Plan: 23yo male with newly diagnosed DM type 1 presents with diabetic ketoacidosis. Endocrinology consulted for metabolic management -Recommend aggressive IVF hydration given his significant dehydration and acidosis with low bicarb -Insulin regimen has been adjusted as ordered, we will adjust as deemed necessary based on his blood sugars -Monitor and replete electrolyte abnormalities as indicated -consistent carb diet -Diabetic education -fingersticks as ordered -[id number] -Continue present medical management as per primary team Patient seen and case discussed/reviewed with attending, Dr. Sawyer
[2018-04-09] MEDS: Insulin Human NPH 1 UNITS/0.01 ML SC SCH (22:00)
[2018-04-10 02:29] LABS: BLOOD UREA NITROGEN < 2 mg/dL (7-21); CALCIUM 8.4 mg/dL (8.4-10.5); GFR NON-AFRICAN AMERICAN > 60
--- NOTE | 2018-04-10 02:48 | CON ---
Copied To: Iliana Sawyer MD Attending MD: Iliana Sawyer MD DATE: 04/09/2018 ENDOCRINOLOGY CONSULTATION HISTORY OF PRESENT ILLNESS: This is a 23-year-old male presenting here with recent onset and diagnosis of uncontrolled diabetes with marked polyuria, nocturia, and polydipsia, and about a 10-pound of fluid was noted, and is being referred now for diabetic evaluation and management. He received IV hydration and intensive insulin therapy with insulin drip infusion, which was discontinued today as noted. PAST MEDICAL HISTORY: Essentially unremarkable. FAMILY HISTORY: His father and paternal grandparents have type 2 diabetes. SOCIAL HISTORY: Admits to recreational use of marijuana and vaping as noted. Also admits to alcohol use, the last intake of which was 2 days prior to admission. REVIEW OF SYSTEMS: Admits to generalized body weakness with progressive bouts of dizziness and lightheadedness worse on the day of admission. No chest pains or palpitations. His oral intake has been variable with nausea, dyspepsia, and supervening vomiting and diarrhea. PHYSICAL EXAMINATION: GENERAL: Obese male, in no apparent distress. VITAL SIGNS: Blood pressure of 130/80, pulse of 100 beats per minute and regular, temperature 98, and respirations 20. Height is 5 feet 7 inches and weight is 268 pounds. HEENT: Head is normocephalic. Eyes; anicteric with pink conjunctivae. Funduscopy not possible at this time. Ears, nose, and throat are otherwise normal. NECK: Supple. Thyroid gland is normal in size. No carotid bruits or any cervical adenopathy. CARDIOPULMONARY: Adynamic precordium. S1, S2 is rapid and regular. LUNGS: Clear to auscultation.. ABDOMEN: Flat, soft with positive bowel sounds. EXTREMITIES: No peripheral edema. Pulses are +2 bilaterally. LABORATORY DATA: Chemistry now showed the BUN of less than 2, sodium 138, potassium 3.6, chloride 110, CO2 of 18, glucose is 217, creatinine is 0.5. His initial CO2 was with an anion gap of 27 ASSESSMENT: This is a 23-year-old male with uncontrolled and decompensated type 1 insulin-dependent diabetes, presenting here with diabetic ketoacidosis and dehydration, and is now being referred for diabetic evaluation and management. PLAN OF MANAGEMENT: We will continue the vigorous IV hydration, especially as the patient is still persistently acidotic with the last CO2 which is 13 with an anion gap of 19 at this time with tremendous fluid deficits as expected with marked osmotic diuresis and polyuria and nocturia as mentioned too. We will change his IV fluids to normal saline running at 200 mL per hour as ordered to at least resolve the acidosis and for a metabolic syndrome thereof. Because of financial constraints and lack of medical insurance, we cannot start him on the very expensive insulin analog as noted. We will start him with a more affordable insulin vials, which cost $35 to $40 in [place] or [place]. We will start him with Humulin 70/30 given as 30 units before breakfast and 20 units before dinner, despite him being on Humulin NPH given at 14 units at bedtime intraperitoneally. We will modify the coverage scale to obviate hypoglycemia and detailed orders have been given. We will initiate diabetic education and dietary instructions prior to his eventual discharge. Iliana Sawyer MD
[2018-04-10] MEDS: Potassium Chloride 20 mEq ER Tab PO SCH ×5 (03:27→19:24)
[2018-04-10] MEDS: Pantoprazole 40 mg EC Tab PO SCH (05:19)
[2018-04-10 06:57] LABS: BASO # 0.01 K/mm3 (0.0-2.0); BASO % 0.1 % (0.0-3.0); EOS # 0.1 (0.0-0.7); EOS % 1.2 % (1.5-5.0); GRAN % 51.9 % (50.0-68.0); HEMOGLOBIN 14.6 g/dL (14.0-18.0); LYMPH # 2.5 (1.2-3.4); LYMPH % 32.7 % (22.0-35.0); MEAN CELL VOLUME 75.8 fl (80.0-105.0); MEAN CORPUSCULAR HEMOGLOBIN 26.8 pg (25.0-35.0); MEAN CORPUSCULAR HGB CONC 35.4 g/dl (31.0-37.0); MONO # 1.1 (0.1-0.6); MONO % 14.1 % (1.0-6.0); PLATELET COUNT 108 10^3/uL (120.0-450.0); RBC 5.45 10^6/uL (3.5-6.1); RED CELL DISTRIBUTION WIDTH 15.3 % (11.5-14.5); WHITE BLOOD COUNT 7.7 10^3/ul (4.5-11.0)
--- NOTE | 2018-04-10 07:03 | CP.PCM.PN ---
Subjective - Date & Time of Evaluation Date of Evaluation: 04/10/18 Time of Evaluation: 07:01 - Subjective Subjective: Endocrinology progress note - Adam Alford PGY3 Patient seen and examined at bedside this morning. No acute overnight events or new complaints reported. Significant hypokalemia overnight for which he received PO KCL. Pending AM labs. Denies chest pain, palpitations, SOB. Tolerating diet without issue. Objective - Vital Signs/Intake and Output Vital Signs (last 24 hours): Temp Pulse Resp BP Pulse Ox 97.7 F 87 20 117/77 100 04/09/18 17:10 04/09/18 17:10 04/09/18 17:10 04/09/18 17:10 04/09/18 17:10 Intake and Output: 04/10/18 04/10/18 06:59 18:59 Intake Total 400 Balance 400 - Medications Medications: Current Medications Dextrose (Dextrose 50% Inj) 0 ml IV STAT PRN; Protocol PRN Reason: Hypoglycemia Protocol Dextrose (Dextrose 5% In Water 1000 Ml) 1,000 mls @ 0 mls/hr IV .Q0M PRN; Protocol; Per Protocol PRN Reason: Hypoglycemia Protocol Sodium Chloride (Sodium Chloride 0.9%) 1,000 mls @ 200 mls/hr IV .Q5H [facility]O Insulin Human NPH (Humulin N) 12 units SC HS [facility] Last Admin: 04/09/18 22:00 Dose: 12 units Insulin Human Regular (Humulin R Low) 0 units SC ACHS LEONARDO PRN Reason: Protocol Last Admin: 04/09/18 21:55 Dose: Not Given Pantoprazole Sodium (Protonix Ec Tab) 40 mg PO 0600 [facility] Last Admin: 04/10/18 05:19 Dose: 40 mg Potassium Phos/Sodium Phos (Neutra-Phos) 1 pkt PO DAILY [facility] - Labs Labs: 04/09/18 04:12 04/10/18 00:50 PT 11.3 SECONDS (9.4-12.5) 04/08/18 13:35 INR 0.99 04/08/18 13:35 APTT 30.6 Seconds (25.1-36.5) 04/08/18 13:35 - Constitutional Appears: No Acute Distress - Head Exam Head Exam: ATRAUMATIC, NORMAL INSPECTION, NORMOCEPHALIC - Eye Exam Eye Exam: EOMI, PERRL - ENT Exam ENT Exam: Mucous Membranes Moist - Respiratory Exam Respiratory Exam: Clear to Ausculation Bilateral. absent: Rales, Rhonchi, Wheezes - Cardiovascular Exam Cardiovascular Exam: RRR, +S1, +S2. absent: Gallop, Rubs - GI/Abdominal Exam GI & Abdominal Exam: Soft. absent: Distended, Firm, Guarding, Rigid, Tenderness , Rebound - Neurological Exam Neurological Exam: Alert, Awake, CN II-XII Intact, Oriented x3 - Psychiatric Exam Psychiatric exam: Normal Affect, Normal Mood - Skin Skin Exam: Dry, Intact, Normal Color, Warm Assessment and Plan - Assessment and Plan (Free Text) Plan: 23yo male with newly diagnosed DM type 1 presents with diabetic ketoacidosis. Endocrinology consulted for metabolic management -Insulin regimen as ordered, we will adjust as deemed necessary based on his blood sugars -Monitor and replete electrolyte abnormalities as indicated, monitor potassium levels -IVF hydration -consistent carb diet -Diabetic education -fingersticks as ordered -BMPq4h -Continue present medical management as per primary team Patient seen and case discussed/reviewed with attending, Dr. Sawyer
[2018-04-10 07:18] LABS: ALB/GLOB RATIO 1.2 (1.1-1.8); ALBUMIN 3.3 g/dL (3.0-4.8); ALT/SGPT 125 U/L (7-56); AST/SGOT 73 U/L (17-59); BLOOD UREA NITROGEN < 2 mg/dL (7-21); CALCIUM 8.6 mg/dL (8.4-10.5); GFR NON-AFRICAN AMERICAN > 60
[2018-04-10] MEDS ORDERED: Insulin Human NPH/Reg 70/30 Vial(3 ml) SC SCH (07:30)
[2018-04-10] MEDS: Potassium & Sodium Phosphate PO SCH (10:01)
[2018-04-10] MEDS: Insulin Reg-LOW-Coverage SC SCH ×4 (10:01→21:41)
--- NOTE | 2018-04-10 11:48 | CP.PCM.PN ---
Subjective - Date & Time of Evaluation Date of Evaluation: 04/10/18 Time of Evaluation: 11:47 - Subjective Subjective: Nephrology Consultation Note: Assessment:stable HAGMA with respi compensation likely due to DKA with new diagnosed DM with hyperglycemia Morbid obesity Hypokalemia, hypophosptahemia, hypomagnesmeia Vit D def Plan No acute need for renal replacement therapy at this time. work up for toxic ingestion neg and favors DKA BP controlled without meds Maintain hemodynamics stable. Avoid hypotension. Monitor Input/Output, daily weights and renal function with basic metabolic panel can d/c IVF supplement lytes started weekly Vit D check UA, urine microalb/cr and pro/cr. HIV/Hep B and C serology. Vit D level Dose meds/antibiotics for normal GFR. Glycemic control. pt need weight loss , diet exercise and lifestyle modifications Further work up/management as per primary team Thanks for allowing me to participate in care of your patient. Will sign off. Please call if any Qs. Dr Albert Victor Office: [phone] Chief Complaint; high sugar Reason for consult: acidosis HPI: Pt is a 23 M without any known hx except morbid obesity presented with complaints of nasuea and found to have severe acidosis with DKA hence renal consulted pt not aware about DM or kidney disease in past. he was unable to have adequate oral intake for 1-2 days prior to presentation Denies OTC/herbal meds or NSAIDs No recent iodinated contrast exposure. No obvious episodes of low BP. Pt feels better now. no complaints. denies CP/SOB/nausea/vomitting. pt not aware about kidney disease in past ROS: Cardiovascular: No chest pain. Pulmonary: No shortness of breath Gastrointestinal: denies abdominal pain No nausea. No vomiting. Genitourinary: No pain while urinating. Denies blood in urine. All other negative except as mentioned in HPI Physical Examination: General Appearance: Comfortable, in no acute respiratory distress, co-operative . obese Vitals reviewed and noted as below Head; Atraumatic, normocephalic ENT: no ulcers no thrush. Tongue is midline. Oropharynx: no rash or ulcers. EYES: Pupils are equal, round and reactive to light accommodation. Eye muscles and extraocular movement intact. Sclera is anicteric. Neck; supple no lymphadenopathy, no thyromegaly or bruit Lungs: Normal respiratory rate/effort. Breath sounds bilateral equal and clear Heart: Normal rate. s1s2 normal. No rub or gallop. Extremities: no edema. No varicose veins Neurological: Patient is alert, awake and oriented to person, place and time. No focal deficit. Strength bilateral appropriate and equal Skin: Warm and dry. Normal turgor. No rash. Palpitation: Normal elasticity for age Abdomen: Abdomen is soft. Bowel sounds +. There is no abdominal tenderness, no guarding/rigidity no organomegaly Psych: normal insight and normal affect/mood MSK: no joint tenderness or swelling. Digits and nails normal, no deformity : kidney or bladder not palpable Labs/imaging reviewed. Past medical history, past surgical history, family history, social history, allergy reviewed and noted as below Family hx: no hx of CKD. Rest non-contributory work up: A1c 14% UA with ketone and glucose ct abdomen neg Objective - Vital Signs/Intake and Output Vital Signs (last 24 hours): Temp Pulse Resp BP Pulse Ox 97.7 F 84 18 122/75 100 04/10/18 06:00 04/10/18 06:00 04/10/18 06:00 04/10/18 06:00 04/10/18 06:00 Intake and Output: 04/10/18 04/10/18 06:59 18:59 Intake Total 2800 Balance 2800 - Medications Medications: Current Medications Atorvastatin Calcium (Lipitor) 40 mg PO DIN [facility] Dextrose (Dextrose 50% Inj) 0 ml IV STAT PRN; Protocol PRN Reason: Hypoglycemia Protocol Ergocalciferol (Drisdol 50,000 Intl Units Cap) 1 cap PO Q7D [facility] Dextrose (Dextrose 5% In Water 1000 Ml) 1,000 mls @ 0 mls/hr IV .Q0M PRN; Protocol; Per Protocol PRN Reason: Hypoglycemia Protocol Sodium Chloride (Sodium Chloride 0.9%) 1,000 mls @ 200 mls/hr IV .Q5H [facility] Insulin Human NPH (Humulin N) 12 units SC HS [facility] Last Admin: 04/09/18 22:00 Dose: 12 units Insulin Human Regular (Humulin R Low) 0 units SC ACHS LEONARDO PRN Reason: Protocol Last Admin: 04/10/18 10:01 Dose: Not Given Pantoprazole Sodium (Protonix Ec Tab) 40 mg PO 0600 [facility] Last Admin: 04/10/18 05:19 Dose: 40 mg Potassium Chloride (K-Dur 20 Meq Er Tab) 40 meq PO Q4 [facility] Stop: 04/10/18 16:01 Last Admin: 04/10/18 10:01 Dose: 40 meq Potassium Phos/Sodium Phos (Neutra-Phos) 1 pkt PO DAILY [facility] Last Admin: 04/10/18 10:01 Dose: 1 pkt - Labs Labs: 04/10/18 06:00 04/10/18 06:00 PT 11.3 SECONDS (9.4-12.5) 04/08/18 13:35 INR 0.99 04/08/18 13:35 APTT 30.6 Seconds (25.1-36.5) 04/08/18 13:35
[2018-04-10] MEDS ORDERED: Ergocalciferol 50,000 Intl Units Cap PO SCH (12:00)
[2018-04-10] MEDS: Sodium Chloride 0.9% 1,000 ML IV SCH ×2 (14:07→19:29)
[2018-04-10 17:05] LABS: BLOOD UREA NITROGEN 3 mg/dL (7-21); CALCIUM 8.4 mg/dL (8.4-10.5); GFR NON-AFRICAN AMERICAN > 60
[2018-04-10 17:13] VITALS: RESP 20
--- NOTE | 2018-04-10 17:40 | CP.PCM.PN ---
Subjective - Date & Time of Evaluation Date of Evaluation: 04/10/18 Time of Evaluation: 07:00 - Subjective Subjective: Renato Taylor PGY1, medicine progress note for Dr Mann. Pt seen and examined this morning. Pt denies any complaints at this time. Pt denies n/v/c/d. Objective - Vital Signs/Intake and Output Vital Signs (last 24 hours): Temp Pulse Resp BP Pulse Ox 98.3 F 84 20 115/69 99 04/10/18 17:12 04/10/18 17:12 04/10/18 17:12 04/10/18 17:12 04/10/18 17:12 Intake and Output: 04/10/18 04/10/18 06:59 18:59 Intake Total 2800 Balance 2800 - Medications Medications: Current Medications Atorvastatin Calcium (Lipitor) 40 mg PO DIN LEONARDO Dextrose (Dextrose 50% Inj) 0 ml IV STAT PRN; Protocol PRN Reason: Hypoglycemia Protocol Ergocalciferol (Drisdol 50,000 Intl Units Cap) 1 cap PO Q7D [facility] Last Admin: 04/10/18 13:20 Dose: 1 cap Dextrose (Dextrose 5% In Water 1000 Ml) 1,000 mls @ 0 mls/hr IV .Q0M PRN; Protocol; Per Protocol PRN Reason: Hypoglycemia Protocol Sodium Chloride (Sodium Chloride 0.9%) 1,000 mls @ 200 mls/hr IV .Q5H [facility] Last Admin: 04/10/18 14:07 Dose: 200 mls/hr Insulin Human NPH (Humulin N) 12 units SC HS [facility] Last Admin: 04/09/18 22:00 Dose: 12 units Insulin Human Regular (Humulin R Low) 0 units SC ACHS LEONARDO PRN Reason: Protocol Last Admin: 04/10/18 13:18 Dose: Not Given Pantoprazole Sodium (Protonix Ec Tab) 40 mg PO 0600 [facility] Last Admin: 04/10/18 05:19 Dose: 40 mg Potassium Phos/Sodium Phos (Neutra-Phos) 1 pkt PO DAILY [facility] Last Admin: 04/10/18 10:01 Dose: 1 pkt - Labs Labs: 04/10/18 06:00 04/10/18 16:43 PT 11.3 SECONDS (9.4-12.5) 04/08/18 13:35 INR 0.99 04/08/18 13:35 APTT 30.6 Seconds (25.1-36.5) 04/08/18 13:35 - Constitutional Appears: No Acute Distress - Head Exam Head Exam: ATRAUMATIC, NORMOCEPHALIC - Eye Exam Eye Exam: EOMI - ENT Exam ENT Exam: Mucous Membranes Moist - Neck Exam Neck Exam: Full ROM - Respiratory Exam Respiratory Exam: Clear to Ausculation Bilateral. absent: Accessory Muscle Use , Wheezes, Respiratory Distress - Cardiovascular Exam Cardiovascular Exam: REGULAR RHYTHM, RRR, +S1, +S2. absent: Diastolic murmur, JVD - GI/Abdominal Exam GI & Abdominal Exam: Soft, Normal Bowel Sounds. absent: Distended, Firm, Guarding, Tenderness, Rebound - Extremities Exam Extremities Exam: Full ROM. absent: Calf Tenderness, Pedal Edema - Back Exam Back Exam: Full ROM, muscle spasm, NORMAL INSPECTION. absent: CVA tenderness (L ), CVA tenderness (R) - Neurological Exam Neurological Exam: Alert, Awake, Oriented x3 - Psychiatric Exam Psychiatric exam: Normal Affect, Normal Mood - Skin Skin Exam: Dry, Normal Color, Warm Assessment and Plan - Assessment and Plan (Free Text) Assessment: Pt is a 23 yo Male with no PMH who presented with complaints of nausea, vomiting , chest pain and abdominal pain, admitted for DKA. Plan: DKA - Nephro, Dr Victor: no need for renal replacement therapy at this time - Endocrinology, Dr Sawyer, appreciate recommendations - DM education, today at bedside - K repleted, hypokalemia has resolved - continue current insulin regiment - CXR no active disease Elevated LFTs - CT abdomen and pelvis: shows severe fatty infiltration of the liver - Hep panel negative HLD - LFTs still elevated, wait for resolution of transaminitis before starting Atorvastatin Ppx - SCD - Pantoprazole Pt seen, reviewed, and assessment/ plan discussed with Dr. Johnathan Taylor PGY-1
[2018-04-10] MEDS: Insulin Human NPH/Reg 70/30 Vial(3 ml) SC SCH (19:26)
--- NOTE | 2018-04-10 19:51 | PN ---
Copied To: Iliana Sawyer MD Attending MD: Iliana Sawyer MD DATE: 04/10/2018 ENDOCRINOLOGY FOLLOWUP NOTE LOCATION: Room 362. This is a 23-year-old male with recent uncontrolled type 1 insulin-dependent diabetes, presenting with diabetic ketoacidosis and dehydration and is now being followed closely for metabolic management. His glycemic levels are fluctuating, but improved and the latest chemistry showed a BUN of less than 2, sodium 139, potassium of 3, chloride 109, CO2 of 16, glucose 173 and creatinine 0.5. So at this time, we will continue the same premixed insulin regimen as ordered to allow for dose equilibration and keep him on the Humulin 70/30 given as 30 units before breakfast and 20 units before dinner with NPH given as 12 units subcu at bedtime daily as given. We will obtain serial chemistries and supplement accordingly as needed. We will also continue the IV hydration as ordered. We will follow and advise accordingly. Iliana Sawyer MD
[2018-04-10] MEDS: Insulin Human NPH 1 UNITS/0.01 ML SC SCH (22:47)
[2018-04-11] MEDS: Sodium Chloride 0.9% 1,000 ML IV SCH (05:42)
[2018-04-11] MEDS: Pantoprazole 40 mg EC Tab PO SCH (05:42)
[2018-04-11] MEDS ORDERED: Insulin Human NPH/Reg 70/30 Vial(3 ml) SC SCH ×2 (07:30→16:30)
[2018-04-11 07:36] LABS: BASO # 0.01 K/mm3 (0.0-2.0); BASO % 0.1 % (0.0-3.0); EOS # 0.1 (0.0-0.7); EOS % 0.9 % (1.5-5.0); GRAN # 3.71 (1.4-6.5); GRAN % 49.4 % (50.0-68.0); HEMOGLOBIN 13.2 g/dL (14.0-18.0); LYMPH # 2.8 (1.2-3.4); LYMPH % 36.5 % (22.0-35.0); MEAN CELL VOLUME 76.1 fl (80.0-105.0); MEAN CORPUSCULAR HEMOGLOBIN 26.7 pg (25.0-35.0); MEAN CORPUSCULAR HGB CONC 35.1 g/dl (31.0-37.0); MONO % 13.1 % (1.0-6.0); PLATELET COUNT 112 10^3/uL (120.0-450.0); RBC 4.94 10^6/uL (3.5-6.1); RED CELL DISTRIBUTION WIDTH 15.4 % (11.5-14.5); WHITE BLOOD COUNT 7.5 10^3/ul (4.5-11.0)
[2018-04-11 07:46] VITALS: BP 109/65; PULSE 75; TEMP 98.7; O2SAT 100
[2018-04-11] MEDS: Insulin Reg-LOW-Coverage SC SCH ×2 (08:28→11:53)
[2018-04-11] MEDS: Potassium & Sodium Phosphate PO SCH (09:47)
--- NOTE | 2018-04-11 13:27 | CP.PCM.DIS ---
<Renato Taylor - Last Filed: 04/11/18 14:16> Provider - Provider Date of Admission: 04/08/18 16:40 Attending physician: Erika Abdalla MD Consults: Endocrinology, Dr Sawyer Nephrology, Dr Victor Time Spent in preparation of Discharge (in minutes): 35 Hospital Course - Lab Results Lab Results: Micro Results 04/08/18 19:04 Naris MRSA Culture (Admit) - Final MRSA NOT DETECTED Most Recent Lab Values WBC 7.5 10^3/ul (4.5-11.0) 04/11/18 07:00 RBC 4.94 10^6/uL (3.5-6.1) 04/11/18 07:00 Hgb 13.2 g/dL (14.0-18.0) L 04/11/18 07:00 Hct 37.6 % (42.0-52.0) L 04/11/18 07:00 MCV 76.1 fl (80.0-105.0) L 04/11/18 07:00 MCH 26.7 pg (25.0-35.0) 04/11/18 07:00 MCHC 35.1 g/dl (31.0-37.0) 04/11/18 07:00 RDW 15.4 % (11.5-14.5) H 04/11/18 07:00 Plt Count 112 10^3/uL (120.0-450.0) L 04/11/18 07:00 Gran % 49.4 % (50.0-68.0) L 04/11/18 07:00 Lymph % (Auto) 36.5 % (22.0-35.0) H 04/11/18 07:00 [place] % (Auto) 13.1 % (1.0-6.0) H 04/11/18 07:00 Eos % (Auto) 0.9 % (1.5-5.0) L 04/11/18 07:00 Baso % (Auto) 0.1 % (0.0-3.0) 04/11/18 07:00 Gran # 3.71 (1.4-6.5) 04/11/18 07:00 Lymph # (Auto) 2.8 (1.2-3.4) 04/11/18 07:00 [place] # (Auto) 1.0 (0.1-0.6) H 04/11/18 07:00 Eos # (Auto) 0.1 (0.0-0.7) 04/11/18 07:00 Baso # (Auto) 0.01 K/mm3 (0.0-2.0) 04/11/18 07:00 PT 11.3 SECONDS (9.4-12.5) 04/08/18 13:35 INR 0.99 04/08/18 13:35 APTT 30.6 Seconds (25.1-36.5) 04/08/18 13:35 D-Dimer, Quantitative < 200 ng/mlDDU (0-243) 04/08/18 13:35 pCO2 23 mm/Hg (35-45) L 04/09/18 08:00 pO2 118.0 mm/Hg (80-100) H 04/09/18 08:00 HCO3 10.6 mmol/L (21-28) L 04/09/18 08:00 ABG pH 7.27 (7.35-7.45) L 04/09/18 08:00 ABG Total CO2 11.3 mmol.L (22-28) L 04/09/18 08:00 ABG O2 Saturation 100.0 % (95-98) H 04/09/18 08:00 ABG O2 Content 20.2 ML/dl (15-23) 04/09/18 08:00 ABG Base Excess -14.2 mmol/L (-2.0-3.0) L 04/09/18 08:00 ABG Hemoglobin 14.7 g/dL (11.7-17.4) 04/09/18 08:00 ABG Carboxyhemoglobin 1.9 % (0.5-1.5) H 04/09/18 08:00 POC ABG HHb (Measured) 0 % (0-5) 04/09/18 08:00 ABG Methemoglobin 1.2 % (0.0-3.0) 04/09/18 08:00 ABG O2 Capacity 20.2 mL/dl (16-24) 04/09/18 08:00 ABG Potassium 2.7 mmol/L (3.6-5.2) L 04/08/18 15:15 VBG pH 7.14 (7.32-7.43) L* 04/08/18 20:30 VBG pCO2 31.0 (40-60) L 04/08/18 20:30 VBG HCO3 10.6 mmol/l (21-28) L 04/08/18 20:30 VBG O2 Sat (Calc) 55.3 % (40-65) 04/08/18 20:30 VBG Base Excess -17.2 mmol/L (0.0-2.0) L 04/08/18 20:30 Hgb O2 Saturation 96.9 % (95.0-98.0) 04/09/18 08:00 Sodium 135.0 mmol/L (132-148) 04/08/18 15:15 Chloride 109.0 mmol/L (98-107) H 04/08/18 15:15 Glucose 266 mg/dl (75-110) H 04/08/18 15:15 Lactate 1.2 mmol/L (0.7-2.1) 04/08/18 15:15 FiO2 21.0 % 04/09/18 08:00 Sodium 140 mmol/L (132-148) 04/10/18 16:43 Potassium 4.2 mmol/L (3.6-5.0) 04/10/18 16:43 Chloride 109 mmol/L (98-107) H 04/10/18 16:43 Carbon Dioxide 18 mmol/L (21-33) L 04/10/18 16:43 Anion Gap 17 (10-20) 04/10/18 16:43 BUN 3 mg/dL (7-21) L 04/10/18 16:43 Creatinine 0.6 mg/dl (0.8-1.5) L 04/10/18 16:43 Est GFR ( Amer) > 60 04/10/18 16:43 Est GFR (Non-Af Amer) > 60 04/10/18 16:43 POC Glucose (mg/dL) 273 mg/dL (65-110) H 04/11/18 11:09 Random Glucose 241 mg/dL (70-110) H 04/10/18 16:43 Hemoglobin A1c 13.9 % (4.2-6.5) H 04/08/18 16:50 Serum Osmolality 299 mosm/kg (272-300) 04/08/18 16:50 Calcium 8.4 mg/dL (8.4-10.5) 04/10/18 16:43 Phosphorus 2.7 mg/dL (2.5-4.5) 04/10/18 06:00 Magnesium 1.9 mg/dL (1.7-2.2) 04/10/18 06:00 Total Bilirubin 1.1 mg/dL (0.2-1.3) 04/10/18 06:00 AST 73 U/L (17-59) H 04/10/18 06:00 ALT 125 U/L (7-56) H 04/10/18 06:00 Alkaline Phosphatase 149 U/L (38-126) H 04/10/18 06:00 Lactate Dehydrogenase 524 U/L (333-699) 04/08/18 13:35 Total Creatine Kinase 95 U/L (35-230) 04/08/18 13:35 Troponin I < 0.01 ng/mL 04/09/18 04:12 Total Protein 6.1 g/dL (5.8-8.3) 04/10/18 06:00 Albumin 3.3 g/dL (3.0-4.8) 04/10/18 06:00 Globulin 2.8 gm/dL 04/10/18 06:00 Albumin/Globulin Ratio 1.2 (1.1-1.8) 04/10/18 06:00 Triglycerides 174 mg/dL (35-160) H 04/09/18 05:30 Cholesterol 267 mg/dL (130-200) H 04/09/18 05:30 LDL Cholesterol Direct 206 mg/dL (0-129) H 04/09/18 05:30 HDL Cholesterol 36 mg/dL (29-60) 04/09/18 05:30 Lipase 247 U/L (23-300) 04/08/18 13:35 25-OH Vitamin D Total < 12.8 NG/ML (30.0-100.0) L 04/10/18 06:00 TSH 3rd Generation 1.90 mIU/mL (0.46-4.68) 04/08/18 16:50 Arterial Blood Potassium 2.7 mmol/L (3.6-5.2) L 04/08/18 15:15 Urine Color Yellow (YELLOW) 04/08/18 15:15 Urine Appearance Clear (CLEAR) 04/08/18 15:15 Urine pH 6.0 (4.7-8.0) 04/08/18 15:15 Ur Specific [place] >= 1.030 (1.005-1.035) 04/08/18 15:15 Urine Protein 100 mg/dL (<30 mg/dL) H 04/08/18 15:15 Urine Glucose (UA) >=1000 mg/dL (NEGATIVE) 04/08/18 15:15 Urine Ketones >=80 mg/dL (NEGATIVE) 04/08/18 15:15 Urine Blood Small (NEGATIVE) H 04/08/18 15:15 Urine Nitrate Negative (NEGATIVE) 04/08/18 15:15 Urine Bilirubin Negative (NEGATIVE) 04/08/18 15:15 Urine Urobilinogen 0.2 E.U./dL (<1 E.U./dL) 04/08/18 15:15 Ur Leukocyte Esterase Negative Dwayne/uL (NEGATIVE) 04/08/18 15:15 Urine RBC 1 - 3 /hpf (0-2) 04/08/18 15:15 Urine WBC 0 - 2 /hpf (0-6) 04/08/18 15:15 Ur Epithelial Cells 0 - 2 /hpf (0-5) 04/08/18 15:15 Urine Bacteria Small (NEG) 04/08/18 15:15 Hyaline Casts 0 - 2 /hpf 04/08/18 15:15 Urine Osmolality 851 mosm/kg (300-1000) 04/08/18 15:15 Ur Random Sodium 22 meq/L 04/08/18 15:15 Ur Random Potassium 37.5 meq/L 04/08/18 15:15 Urine Chloride 26 mmol/L (32-290) L 04/08/18 15:15 Salicylates < 1 mg/dL (2.0-20.0) L 04/08/18 16:50 Urine Opiates Screen Negative (NEGATIVE) 04/08/18 15:15 Urine Methadone Screen Negative (NEGATIVE) 04/08/18 15:15 Acetaminophen < 10.0 ug/ml (10.0-20.0) L 04/08/18 16:50 Ur Barbiturates Screen Negative (NEGATIVE) 04/08/18 15:15 Ur Phencyclidine Scrn Negative (NEGATIVE) 04/08/18 15:15 Ur Amphetamines Screen Negative (NEGATIVE) 04/08/18 15:15 U Benzodiazepines Scrn Negative (NEGATIVE) 04/08/18 15:15 U Oth Cocaine Metabols Negative (NEGATIVE) 04/08/18 15:15 U Cannabinoids Screen Negative (NEGATIVE) 04/08/18 15:15 Alcohol, Quantitative < 10 mg/dL (0-10) 04/08/18 16:50 B-Hydroxybutyrate 7.02 mM (0.02-0.27) H 04/08/18 16:50 Hepatitis A IgM Ab Negative (NEGATIVE) 04/08/18 20:15 Hep Bs Antigen Negative (NEGATIVE) 04/08/18 20:15 Hep B Core IgM Ab Negative (NEGATIVE) 04/08/18 20:15 Hepatitis C Antibody Negative (NEGATIVE) 04/08/18 20:15 - Hospital Course Hospital Course: Pt is a 23 yo morbidly obese male who [place] on 04/08 [place] [facility] [place]H who presented complaining of chest pain and SOB whenever he would belch. He stated it started 4 days prior to admission shortly after eating fast food. Pt reported episodes of non bloody, non billious vomiting 3-4 days before admission. Pt reported mild epigastric discomfort. He also experienced polyuria and polydipsia. He admitted to chills and feeling hot for a few days prior to admission. Pt was found to be a newly diagnosed diabetic who was currently in DKA. Pt was in the ICU with a anion metabolic gap acidosis. He was placed on an insulin drip until his gap closed. He was moved out of the ICU and onto the floor while we monitored his blood glucose levels. Pt was given DM education at bedside, he was taught how to check his blood sugar and how to inject insulin properly. Once his glucose levels were normalized and well maintained, it was discussed with the medical team, attending, and pt that it would be appropriate for the pt to be discharged home. - Date & Time of H&P Date of H&P: 04/11/18 Time of H&P: 13:30 Discharge Exam - Head Exam Head Exam: ATRAUMATIC, NORMAL INSPECTION, NORMOCEPHALIC - Eye Exam Eye Exam: EOMI - ENT Exam ENT Exam: Mucous Membranes Moist - Neck Exam Neck exam: Full Rom - Respiratory Exam Respiratory Exam: NORMAL BREATHING PATTERN, UNREMARKABLE. absent: Accessory Muscle Use, Rales, Rhonchi, Wheezes, Stridor - Cardiovascular Exam Cardiovascular Exam: REGULAR RHYTHM, RRR, +S1, +S2. absent: Diastolic murmur, JVD, Systolic Murmur - GI/Abdominal Exam GI & Abdominal Exam: Normal Bowel Sounds, Soft, Unremarkable. absent: Guarding , Hernia, Rigid, Tenderness - Extremities Exam Extremities exam: full ROM, pedal pulses present - Back Exam Back exam: FULL ROM, NORMAL INSPECTION. absent: CVA tenderness (L), CVA tenderness (R), muscle spasm, tenderness - Neurological Exam Neurological exam: Alert, Oriented x3 - Psychiatric Exam Psychiatric exam: Normal Affect, Normal Mood - Skin Skin Exam: Dry, Normal Color, Warm Discharge Plan - Discharge Medications Prescriptions: Ergocalciferol [Drisdol 50,000 Intl Units Cap] 1 cap PO Q7D #4 cap Insulin NPH Hum/Reg Insulin Hm [Relion Novolin 70-30 Vial] 34 unit SQ ACB #14 vial Insulin NPH Hum/Reg Insulin Hm [Relion Novolin 70-30 Vial] 24 unit SQ ACD #14 vial Syringe-Needle,Insulin,0.5 ml [Insulin Syringe] 1 each MC BID #100 disp.syrin - Follow Up Plan Condition: FAIR Disposition: HOME/ ROUTINE Instructions: Diabetic Ketoacidosis (DC) Additional Instructions: 1. Please follow up with [place] [facility] and establish care with primary care physician Dr. Lopez, appointment made for tomorrow, Apr 12, 2018 2. Please take medications as prescribed to you 3. Pt counseled about the health benefits of diet and exercise 4. If symptoms return please go to your nearest emergency department Referrals: [facility] <Fermin Lee - Last Filed: 04/11/18 15:54> Provider - Provider Date of Admission: 04/08/18 16:40 Attending physician: Erika Abdalla MD Hospital Course - Lab Results Lab Results: Micro Results 04/08/18 19:04 Naris MRSA Culture (Admit) - Final MRSA NOT DETECTED Most Recent Lab Values WBC 7.5 10^3/ul (4.5-11.0) 04/11/18 07:00 RBC 4.94 10^6/uL (3.5-6.1) 04/11/18 07:00 Hgb 13.2 g/dL (14.0-18.0) L 04/11/18 07:00 Hct 37.6 % (42.0-52.0) L 04/11/18 07:00 MCV 76.1 fl (80.0-105.0) L 04/11/18 07:00 MCH 26.7 pg (25.0-35.0) 04/11/18 07:00 MCHC 35.1 g/dl (31.0-37.0) 04/11/18 07:00 RDW 15.4 % (11.5-14.5) H 04/11/18 07:00 Plt Count 112 10^3/uL (120.0-450.0) L 04/11/18 07:00 Gran % 49.4 % (50.0-68.0) L 04/11/18 07:00 Lymph % (Auto) 36.5 % (22.0-35.0) H 04/11/18 07:00 [place] % (Auto) 13.1 % (1.0-6.0) H 04/11/18 07:00 Eos % (Auto) 0.9 % (1.5-5.0) L 04/11/18 07:00 Baso % (Auto) 0.1 % (0.0-3.0) 04/11/18 07:00 Gran # 3.71 (1.4-6.5) 04/11/18 07:00 Lymph # (Auto) 2.8 (1.2-3.4) 04/11/18 07:00 [place] # (Auto) 1.0 (0.1-0.6) H 04/11/18 07:00 Eos # (Auto) 0.1 (0.0-0.7) 04/11/18 07:00 Baso # (Auto) 0.01 K/mm3 (0.0-2.0) 04/11/18 07:00 PT 11.3 SECONDS (9.4-12.5) 04/08/18 13:35 INR 0.99 04/08/18 13:35 APTT 30.6 Seconds (25.1-36.5) 04/08/18 13:35 D-Dimer, Quantitative < 200 ng/mlDDU (0-243) 04/08/18 13:35 pCO2 23 mm/Hg (35-45) L 04/09/18 08:00 pO2 118.0 mm/Hg (80-100) H 04/09/18 08:00 HCO3 10.6 mmol/L (21-28) L 04/09/18 08:00 ABG pH 7.27 (7.35-7.45) L 04/09/18 08:00 ABG Total CO2 11.3 mmol.L (22-28) L 04/09/18 08:00 ABG O2 Saturation 100.0 % (95-98) H 04/09/18 08:00 ABG O2 Content 20.2 ML/dl (15-23) 04/09/18 08:00 ABG Base Excess -14.2 mmol/L (-2.0-3.0) L 04/09/18 08:00 ABG Hemoglobin 14.7 g/dL (11.7-17.4) 04/09/18 08:00 ABG Carboxyhemoglobin 1.9 % (0.5-1.5) H 04/09/18 08:00 POC ABG HHb (Measured) 0 % (0-5) 04/09/18 08:00 ABG Methemoglobin 1.2 % (0.0-3.0) 04/09/18 08:00 ABG O2 Capacity 20.2 mL/dl (16-24) 04/09/18 08:00 ABG Potassium 2.7 mmol/L (3.6-5.2) L 04/08/18 15:15 VBG pH 7.14 (7.32-7.43) L* 04/08/18 20:30 VBG pCO2 31.0 (40-60) L 04/08/18 20:30 VBG HCO3 10.6 mmol/l (21-28) L 04/08/18 20:30 VBG O2 Sat (Calc) 55.3 % (40-65) 04/08/18 20:30 VBG Base Excess -17.2 mmol/L (0.0-2.0) L 04/08/18 20:30 Hgb O2 Saturation 96.9 % (95.0-98.0) 04/09/18 08:00 Sodium 135.0 mmol/L (132-148) 04/08/18 15:15 Chloride 109.0 mmol/L (98-107) H 04/08/18 15:15 Glucose 266 mg/dl (75-110) H 04/08/18 15:15 Lactate 1.2 mmol/L (0.7-2.1) 04/08/18 15:15 FiO2 21.0 % 04/09/18 08:00 Sodium 140 mmol/L (132-148) 04/10/18 16:43 Potassium 4.2 mmol/L (3.6-5.0) 04/10/18 16:43 Chloride 109 mmol/L (98-107) H 04/10/18 16:43 Carbon Dioxide 18 mmol/L (21-33) L 04/10/18 16:43 Anion Gap 17 (10-20) 04/10/18 16:43 BUN 3 mg/dL (7-21) L 04/10/18 16:43 Creatinine 0.6 mg/dl (0.8-1.5) L 04/10/18 16:43 Est GFR ( Amer) > 60 04/10/18 16:43 Est GFR (Non-Af Amer) > 60 04/10/18 16:43 POC Glucose (mg/dL) 273 mg/dL (65-110) H 04/11/18 11:09 Random Glucose 241 mg/dL (70-110) H 04/10/18 16:43 Hemoglobin A1c 13.9 % (4.2-6.5) H 04/08/18 16:50 Serum Osmolality 299 mosm/kg (272-300) 04/08/18 16:50 Calcium 8.4 mg/dL (8.4-10.5) 04/10/18 16:43 Phosphorus 2.7 mg/dL (2.5-4.5) 04/10/18 06:00 Magnesium 1.9 mg/dL (1.7-2.2) 04/10/18 06:00 Total Bilirubin 1.1 mg/dL (0.2-1.3) 04/10/18 06:00 AST 73 U/L (17-59) H 04/10/18 06:00 ALT 125 U/L (7-56) H 04/10/18 06:00 Alkaline Phosphatase 149 U/L (38-126) H 04/10/18 06:00 Lactate Dehydrogenase 524 U/L (333-699) 04/08/18 13:35 Total Creatine Kinase 95 U/L (35-230) 04/08/18 13:35 Troponin I < 0.01 ng/mL 04/09/18 04:12 Total Protein 6.1 g/dL (5.8-8.3) 04/10/18 06:00 Albumin 3.3 g/dL (3.0-4.8) 04/10/18 06:00 Globulin 2.8 gm/dL 04/10/18 06:00 Albumin/Globulin Ratio 1.2 (1.1-1.8) 04/10/18 06:00 Triglycerides 174 mg/dL (35-160) H 04/09/18 05:30 Cholesterol 267 mg/dL (130-200) H 04/09/18 05:30 LDL Cholesterol Direct 206 mg/dL (0-129) H 04/09/18 05:30 HDL Cholesterol 36 mg/dL (29-60) 04/09/18 05:30 Lipase 247 U/L (23-300) 04/08/18 13:35 25-OH Vitamin D Total < 12.8 NG/ML (30.0-100.0) L 04/10/18 06:00 TSH 3rd Generation 1.90 mIU/mL (0.46-4.68) 04/08/18 16:50 Arterial Blood Potassium 2.7 mmol/L (3.6-5.2) L 04/08/18 15:15 Urine Color Yellow (YELLOW) 04/08/18 15:15 Urine Appearance Clear (CLEAR) 04/08/18 15:15 Urine pH 6.0 (4.7-8.0) 04/08/18 15:15 Ur Specific [place] >= 1.030 (1.005-1.035) 04/08/18 15:15 Urine Protein 100 mg/dL (<30 mg/dL) H 04/08/18 15:15 Urine Glucose (UA) >=1000 mg/dL (NEGATIVE) 04/08/18 15:15 Urine Ketones >=80 mg/dL (NEGATIVE) 04/08/18 15:15 Urine Blood Small (NEGATIVE) H 04/08/18 15:15 Urine Nitrate Negative (NEGATIVE) 04/08/18 15:15 Urine Bilirubin Negative (NEGATIVE) 04/08/18 15:15 Urine Urobilinogen 0.2 E.U./dL (<1 E.U./dL) 04/08/18 15:15 Ur Leukocyte Esterase Negative Dwayne/uL (NEGATIVE) 04/08/18 15:15 Urine RBC 1 - 3 /hpf (0-2) 04/08/18 15:15 Urine WBC 0 - 2 /hpf (0-6) 04/08/18 15:15 Ur Epithelial Cells 0 - 2 /hpf (0-5) 04/08/18 15:15 Urine Bacteria Small (NEG) 04/08/18 15:15 Hyaline Casts 0 - 2 /hpf 04/08/18 15:15 Urine Osmolality 851 mosm/kg (300-1000) 04/08/18 15:15 Ur Random Sodium 22 meq/L 04/08/18 15:15 Ur Random Potassium 37.5 meq/L 04/08/18 15:15 Urine Chloride 26 mmol/L (32-290) L 04/08/18 15:15 Salicylates < 1 mg/dL (2.0-20.0) L 04/08/18 16:50 Urine Opiates Screen Negative (NEGATIVE) 04/08/18 15:15 Urine Methadone Screen Negative (NEGATIVE) 04/08/18 15:15 Acetaminophen < 10.0 ug/ml (10.0-20.0) L 04/08/18 16:50 Ur Barbiturates Screen Negative (NEGATIVE) 04/08/18 15:15 Ur Phencyclidine Scrn Negative (NEGATIVE) 04/08/18 15:15 Ur Amphetamines Screen Negative (NEGATIVE) 04/08/18 15:15 U Benzodiazepines Scrn Negative (NEGATIVE) 04/08/18 15:15 U Oth Cocaine Metabols Negative (NEGATIVE) 04/08/18 15:15 U Cannabinoids Screen Negative (NEGATIVE) 04/08/18 15:15 Alcohol, Quantitative < 10 mg/dL (0-10) 04/08/18 16:50 B-Hydroxybutyrate 7.02 mM (0.02-0.27) H 04/08/18 16:50 Hepatitis A IgM Ab Negative (NEGATIVE) 04/08/18 20:15 Hep Bs Antigen Negative (NEGATIVE) 04/08/18 20:15 Hep B Core IgM Ab Negative (NEGATIVE) 04/08/18 20:15 Hepatitis C Antibody Negative (NEGATIVE) 04/08/18 20:15 Attending/Attestation - Attestation I have personally seen and examined this patient.: Yes I have fully participated in the care of the patient.: Yes I have reviewed all pertinent clinical information, including history, physical exam and plan: Yes
[2018-04-11] MEDS ORDERED: Insulin Human NPH 1 UNITS/0.01 ML SC SCH (22:00)
== END 2018-04-11 15:46 | disposition home or self-care (01) | DRG 295 ==
LOC: ED 12:39 → ERH 16:40 → CCU 19:14 → 3RNO 04-09 14:47
PROVIDERS: ADMIT Internal Medicine; ATTEND Internal Medicine
DX: E10.10 Type 1 diabetes mellitus with ketoacidosis without coma (principal); E87.6 Hypokalemia; E86.0 Dehydration; E66.01 Morbid (severe) obesity due to excess calories; Z68.41 Body mass index [BMI] 40.0-44.9, adult; E83.42 Hypomagnesemia; R07.9 Chest pain, unspecified; E55.9 Vitamin D deficiency, unspecified; F12.90 Cannabis use, unspecified, uncomplicated